=== PATIENT | male | born 1930 | race Caucasian/White ===

== ENCOUNTER 2017-02-18 19:39 | Emergency (ER) | payer OTHER, MEDICARE ==
--- NOTE | 2017-02-18 23:01 | DIAGNOSTIC IMAGING REPORT ---
PROCEDURE: XR CHEST 1 VIEW INDICATION: SHORTNESS OF BREATH TECHNIQUE: Portable AP view 08:28 p.m. COMPARISON: None. FINDINGS: Median sternotomy with valvuloplasty and dual lead pacemaker. Heart size, mediastinum and pulmonary vessels are normal. Left basilar opacity which may relate to one of the ribs. Thorax is normal. IMPRESSION: 1. Pacemaker, sternotomy and valvuloplasty 2. Left basilar opacity which may relate to a rib. Recommend two-view chest section
--- NOTE | 2017-02-19 02:23 | ED NURSING NOTES ---
Clinical Report - Nurses [facility] [address] [place] [address] 02/18/2017 19:43 Patient: SLY MUSTAFA TRIAGE Triage time 19:45 Feb 18 2017. Acuity: LEVEL 2. Chief Complaint: SHORTNESS OF BREATH and DIFFICULTY BREATHING. SEPSIS SCREEN: Sepsis Screen: negative. Negative (no infection suspected/documented). QIAN COMA SCORE: Qian Coma Scale: 15- eyes open spontaneously (4); best verbal response- oriented x 4 (5); best motor response- obeys commands (6). --19:57 Katie Rivera 19:48 02/18/17. BP: 146/71. HR: 75. RR: 24. O2 saturation: 100% on room air. Temp: 98.4 F (oral). Pain level now: 0/10. --19:57 Katie Rivera. Weight: 79.3 kg stated. Height/Length: 71 inches Per Patient. BMI: 24.4. --19:50 Katie Rivera. Medications Warfarin Sodium Oral 15 mg, daily. --19:53 Katie Rivera Aricept Oral (Tablet 5 mg), daily. --19:53 Katie Rivera Namenda Oral 10 mg, 2x a day. --19:53 Katie Rivera Lovenox Subcutaneous, 2x a day. --19:54 Katie Rivera. Allergies No Known Drug Allergy. --19:55 Katie Rivera. Medication/allergy information source: the patient. --19:57 Katie Rivera. History Arrived by private vehicle. Historian: patient. Accompanied by family. Primary physician (Herminia). This started today. ( Patient reports onset of shortness of breath tonight. He denies any history of COPD or asthma. He reports cardiac history and use of blood thinners.). PAST MEDICAL HX: Immunizations: up-to-date. SOCIAL HX: Never smoker. No alcohol use or drug use. No infectious disease exposure. ABUSE ASSESSMENT: No report of abuse. FALL RISK ASSESSMENT: Fall risk assessment completed. No fall risk identified. NUTRITIONAL RISK ASSESSMENT: The nutritional risk assessment revealed no deficiencies. FUNCTIONAL ASSESSMENT: Functional assessment: no impairments noted. LEARNING NEEDS ASSESSMENT: The learning needs assessment revealed no barriers. SKIN INTEGRITY ASSESSMENT: Skin integrity risk assessment completed. No skin integrity risk identified. --19:57 Katie Rivera. PROBLEMS: Rectal Prolapse. Dimentia . Cardiac Procedures. --19:56 Katie Rivera. ADDITIONAL SURGERIES: Cardiac valve replacement . Hernia Repair. Pacemaker. --19:56 Katie Rivera. Interventions ID band on patient. To treatment room. --19:57 Katie Rivera. PHYSICAL ASSESSMENT To room via wheelchair. Patient gowned. GENERAL / NEURO / PSYCH: Alert. Oriented X 4. Appears in no acute distress. HEENT: Mucous membranes are pink. RESPIRATORY: Mild respiratory distress. The patient can speak in full sentences. CVS: Cardiac rhythm: paced rhythm. GI / : Abdomen soft. ( Bruising over patients abdomen, he reports this is due to Subcutaneous injections). SKIN: Skin is dry. Skin is cool. --19:58 Katie Rivera. NURSING PROGRESS NOTES The initial plan of care for this patient has been created This plan of care was discussed with the patient and family. webmaster, pulse oximeter and NIBP monitor placed on patient; monitor alarms on. Patient gowned. Head of bed elevated. Reassurance given to the patient. Two patient identifiers checked. Call light placed in reach. Side rails up x 1. Bed placed in lowest position. Brakes of bed on. Patient ready for evaluation- chart flagged and ED physician notified. --19:58 Katie Rivera 19:59 02/18/2017 Site #1 started via IV in the left antecubital space with an 18g angiocath, with aseptic technique and good blood return; one attempt. Blood drawn: rainbow set. Labeled in the presence of the patient and sent to the lab. Saline lock flushed with 10 mL saline. --19:59 Katie Rivera EKG time: (19:51 Feb 18 2017). EKG was performed by a tech and shown to the ED physician. --19:59 Katie Rivera ( RT called to bedside). --19:59 Katie Rivera 20:19 02/18/17. BP: 126/69. HR: 84. RR: 24. O2 saturation: 99% on nasal cannula at 2 liters/minute. --20:19 Katie Rivera ( Pt informed of need for urine sample. Family at bedside and discussed plan of care). --21:02 Katie Rivera 21:02 02/18/17. BP: 110/67. HR: 86. RR: 24. O2 saturation: 100% on nasal cannula at 2 liters/minute. --21:03 Katie Rivera ( Patient attempted to give urine sample but was not able at this time). --21:44 Katie Rivera 21:44 02/18/17. BP: 121/70. HR: 86. RR: 22. O2 saturation: 100% on nasal cannula at 2 liters/minute. --21:49 Katie Rivera 22:34 02/18/2017 Started bag #1 500 mL IV Fluids IV NS (Saline); at 1000 mL/hr over 30 minute(s) via site #1. Allergies verified and confirmed 5 rights. IV patency established. IV site checked: no pain, redness, or swelling. IV flushed thoroughly pre- and post-medication administration. --22:34 Katie Rivera 22:56 02/18/17. BP: 120/86. HR: 80. RR: 20. O2 saturation: 100% on nasal cannula at 2 liters/minute. --22:56 Katie Rivera ( Walk test performed, patient ambulated to restroom and was short of breath, he had to stop and catch his breath. Patient returned to bed and provider notified.). --23:10 Katie Rivera 23:00 02/18/2017 IV Fluids IV NS Discontinued: bag #1 completed. Total amount infused: 500 mL. IV patency established. IV site checked: no pain, redness, or swelling. IV flushed thoroughly. --23:40 Katie Rivera ( Patient up to use urinal, patient standing and reports he feels diaphoretic and "weird". He states he is nauseated. He and his family report some belly fullness and pain over the last few weeks.). --23:40 Katie Rivera ( Provider notified). --23:41 Katie Rivera 14 fr in/out catheterization. During procedure hand hygiene observed and sterile equipment and aseptic technique used. Return of 300 mL marek-colored clear urine. He tolerated procedure well. --23:54 Katie Rivera Patient ID band checked for patient name and birthdate: patient confirmed. Instructions provided to collect clean catch urine and patient verbalized understanding. Catheterized urine collected with return of marek-colored clear urine; sample sent to lab for urinalysis. Specimen labeled in the presence of the patient. --23:54 Katie Rivera 00:10 02/19/17. BP: 104/88. HR: 84. RR: 22. O2 saturation: 98% on nasal cannula at 2 liters/minute. --00:10 Katie Rivera Patient transported to radiology by stretcher with tech. (00:Feb 19 2017). --00:20 Katie Rivera ( Patient given warm blankets and resting quietly). --00:46 Katie Rivera 01:18 02/19/17. BP: 123/66. HR: 84. RR: 20. O2 saturation: 96% on nasal cannula at 2 liters/minute. --01:18 Katie Rivera ( Provider at bedside discussing plan of care with patient). --01:33 Katie Rivera 02:14 02/19/17. BP: 110/66. HR: 84. RR: 20. O2 saturation: 98% on nasal cannula. --02:17 Katie Rivera The patient is sleeping. --02:17 Katie Rivera 03:25 02/19/17. BP: 101/60. HR: 84. RR: 20. O2 saturation: 98% on nasal cannula at 2 liters/minute. --03:25 Katie Rivera The patient is sleeping. --05:30 Katie Rivera 05:30 02/19/17. BP: 110/60. HR: 84. RR: 20. O2 saturation: 98% on nasal cannula at 2 liters/minute. --05:30 Katie Rivera 04:20 02/19/17. ( Patient assisted up to restroom, patient short of breath with ambulation. Patient returned to bed and has no complaints at this time.). --05:31 Servando Riveranah 06:45 02/19/17. BP: 105/50. HR: 80. RR: 20. O2 saturation: 96% on nasal cannula at 2 liters/minute. --06:47 Nicole, Katie ( Patient pulled his IV out while sleeping, he states he forgot why he had it it. He reports he feels a little "weird". Provider aware.). --06:47 Nicole Katie Care transferred and report received (Katie Rader EDRN). --07:05 Patrick Vazquez R.N. Care transferred and report given (Kavita RN). --07:06 Nicole, Katie 06:44 02/19/2017 Site #1 removed. Catheter intact. Bandage applied (was pulled out by pt). --07:10 Patrick Vazquez R.N. 07:05 02/19/2017 Site #2 started via IV in the left antecubital space with an 20g angiocath, with aseptic technique and good blood return. Saline lock flushed with 10 mL saline. --07:10 Patrick Vazquez R.N. 07:09 02/19/17. BP: 104/49. HR: 77. RR: 18. O2 saturation: 96% on room air. --07:10 Patrick Vazquez R.N. The patient is sleeping. ( equal rise/fall of chest). --08:36 Patrick Vazquez R.N. DISPOSITION / DISCHARGE 09:29 02/19/17. Departure time: 914. Condition at departure: improved and stable. No learning barriers present. Discharge instructions provided and reviewed with the patient and family. Patient and family verbalized understanding. Written instructions provided in Iranian. The patient was discharged by the physician. He was discharged home and accompanied by family. He left the Emergency Department in a wheelchair and via private vehicle. Family member driving. --09:29 Patrick Vazquez R.N. 09:28 02/19/17. BP: 114/70. HR: 89. RR: 20. O2 saturation: 98% on room air. Temp: 98.2 F (oral). Pain level now 0/10. --09:29 Patrick Vazquez R.N. Locked/Released at 02/19/2017 9:29 by Patrick Vazquez R.N.
--- NOTE | 2017-02-19 02:23 | ED ORDER SUMMARY ---
..... Patient: SLY MUSTAFA OrderSheet [facility] VisitID: [id number] [place] [address] 87y, M Registration Date/Time: 02/18/2017 ORDER SHEET Weight: 79.3 kg (stated) Allergies: No Known Drug Allergy GENERAL ORDERS: Chest 1V Urgent (20:13 02/18/2017 Kamar MENG) (Ack 20:16 AMcQuoid ER Tech1) (20:37 HSoule) Sap Portal Consultant (Continuous) (20:14 02/18/2017 Kamar MENG) (20:15 HSoule) UA-Culture if indicated Urgent (20:14 02/18/2017 Kamar MENG) (Ack 20:16 AMcQuoid ER Tech1) (0:10 HSoule) PT with INR Urgent (20:14 02/18/2017 Kamar MENG) (Ack 20:16 AMcQuoid ER Tech1) (22:34 HSoule) Cardiac Panel Stat (20:14 02/18/2017 Kamar MENG) (Ack 20:16 AMcQuoid ER Tech1) (22:34 HSoule) BNP Urgent (20:14 02/18/2017 Kamar MENG) (Ack 20:16 AMcQuoid ER Tech1) (22:34 HSoule) D-Dimer Urgent (20:14 02/18/2017 Kamar MENG) (Ack 20:16 AMcQuoid ER Tech1) (22:34 HSoule) Oxygen (2 L/min) (NC) (20:14 02/18/2017 Kamar MENG) (20:15 HSoule) Pulse oximeter (20:14 02/18/2017 Kamar MENG) (20:15 HSoule) EKG - ER Stat (20:02/18/2017 Kamar MENG) (20:15 HSoule) CT Abd/Pel w Cont (No) (GFR > 60) Urgent (23:35 02/18/2017 Zachary Bernstein) (Ack 23:36 AMcQuoid ER Tech1) (0:34 RFay) MEDICATION ORDERS: IV FLUIDS: IV Saline Lock (20:14 02/18/2017 Kamar MENG) (20:15 HSoule) IV NS : initial bolus 500 mL (1000 mL/hr), then none - for X1 (NOW) (22:32 02/18/2017 Zachary Bernstein) (22:34 HSoule) ORDER SHEET NOTES: [Electronically signed by Patrick Vazquez R.N. (09:02/19/2017)] [Electronically signed by Kendell Langston Dr. (09:48 02/23/2017)] [Electronically locked/signed by Patrick Vazquez R.N. (09:02/19/2017)]
--- NOTE | 2017-02-19 02:23 | ED ORDER SUMMARY ---
..... Patient: SLY MUSTAFA OrderSheet [facility] VisitID: [id number] [place] [address] 87y, M Registration Date/Time: 02/18/2017 ORDER SHEET Weight: 79.3 kg (stated) Allergies: No Known Drug Allergy GENERAL ORDERS: Chest 1V Urgent (20:13 02/18/2017 Kamar MENG) (Ack 20:16 AMcQuoid ER Tech1) (20:37 HSoule) Air Pollution Analyst (Continuous) (20:14 02/18/2017 Kamar MENG) (20:15 HSoule) UA-Culture if indicated Urgent (20:14 02/18/2017 Kamar MENG) (Ack 20:16 AMcQuoid ER Tech1) (0:10 HSoule) PT with INR Urgent (20:14 02/18/2017 Kamar MENG) (Ack 20:16 AMcQuoid ER Tech1) (22:34 HSoule) Cardiac Panel Stat (20:14 02/18/2017 Kamar MENG) (Ack 20:16 AMcQuoid ER Tech1) (22:34 HSoule) BNP Urgent (20:14 02/18/2017 Kamar MENG) (Ack 20:16 AMcQuoid ER Tech1) (22:34 HSoule) D-Dimer Urgent (20:14 02/18/2017 Kamar MENG) (Ack 20:16 AMcQuoid ER Tech1) (22:34 HSoule) Oxygen (2 L/min) (NC) (20:14 02/18/2017 Kamar MENG) (20:15 HSoule) Pulse oximeter (20:14 02/18/2017 Kamar MENG) (20:15 HSoule) EKG - ER Stat (20:02/18/2017 Kamar MENG) (20:15 HSoule) CT Abd/Pel w Cont (No) (GFR > 60) Urgent (23:35 02/18/2017 Zachary Bernstein) (Ack 23:36 AMcQuoid ER Tech1) (0:34 RFay) MEDICATION ORDERS: IV FLUIDS: IV Saline Lock (20:14 02/18/2017 Kamar MENG) (20:15 HSoule) IV NS : initial bolus 500 mL (1000 mL/hr), then none - for X1 (NOW) (22:32 02/18/2017 Zachary Bernstein) (22:34 HSoule) ORDER SHEET NOTES: [Electronically signed by Patrick Vazquez R.N. (09:02/19/2017)] [Electronically signed by Kendell Langston Dr. (09:48 02/23/2017)] [Electronically locked/signed by Patrick Vazquez R.N. (09:02/19/2017)]
--- NOTE | 2017-02-19 02:23 | ED CLINICAL REPORT ---
Clinical Report - Physicians/Mid Levels [facility] [address] [place] [address] 02/18/2017 19:43 Patient: SLY MUSTAFA Time Seen: 19:58. Arrived- By private vehicle. Historian- patient. HISTORY OF PRESENT ILLNESS Chief Complaint: DYSPNEA and FATIGUE. This started several days ago and is still present. It was gradual in onset and has been intermittent and waxing/waning but is not gone now. The dyspnea is described as moderate. No cough, sputum production, fever or chills. No chest pain or discomfort, calf pain, orthopnea or paroxysmal nocturnal dyspnea. No palpitations. He has had dyspnea on exertion. Recent medical care: The patient was seen recently by a health care provider. ( INR sub theraputic). REVIEW OF SYSTEMS No fever, sore throat, calf pain, chest pain or black stools. No bloody stools or alteration in mental status. He has had epistaxis (recently not today). He has had difficulty breathing and easy bruising. He has had mild abdominal pain (resolved). Nosebleeds. All systems otherwise negative, except as recorded above. PAST HISTORY See nurses notes. PCP: Emil Ops: Mitral Valve Replacement, Pacemaker, L ingual hernia repair Illness: Rectal prolapse, anticoagulation, dementia,. Medications: Lovenox Subcutaneous, 2x a day. Namenda Oral 10 mg, 2x a day. Aricept Oral (Tablet 5 mg), daily. Warfarin Sodium Oral 15 mg, daily. Allergies: No Known Drug Allergy. SOCIAL HISTORY Never smoker. No alcohol use or drug use. No recent travel. Residence: with good family support. 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 ADDITIONAL NOTES The nursing notes have been reviewed. PHYSICAL EXAM Vital Signs: 02/18/2017 21:02 BP: 110/67. HR: 86. RR: 24. O2 saturation: 100%. 02/18/2017 20:19 BP: 126/69. HR: 84. RR: 24. O2 saturation: 99%. 02/18/2017 19:48 BP: 146/71. HR: 75. RR: 24. O2 saturation: 100%. Temp: 98.4 F. Pain level now: 0/10. Appearance: Alert. No acute distress. Eyes: Pupils equal, round and reactive to light. Eyes normal inspection. ENT: Pharynx normal. Neck: Normal inspection. CVS: Normal heart rate and rhythm. Heart sounds normal. Respiratory: No respiratory distress. Breath sounds normal. No accessory muscle use, wheezes, rales or rhonchi. Abdomen: Soft and nontender. (Entire abdominal skin has ecchymosis at lovenox injection sites). Extremities: Extremities exhibit normal ROM. No lower extremity edema. Neuro: No alteration in mental status. LABS, X-RAYS, AND EKG Chest X-ray: (PROCEDURE: XR CHEST 1 VIEW INDICATION: SHORTNESS OF BREATH TECHNIQUE: Portable AP view 08:28 p.m. COMPARISON: None. FINDINGS: Median sternotomy with valvuloplasty and dual lead pacemaker. Heart size, mediastinum and pulmonary vessels are normal. Left basilar opacity which may relate to one of the ribs. Thorax is normal. IMPRESSION: 1. Pacemaker, sternotomy and valvuloplasty 2. Left basilar opacity which may relate to a rib. Recommend two-view chest section). Views: AP (portable). The X-rays were independently viewed by me and interpreted by the radiologist. The X-rays were discussed with the radiologist (via PACS). Abdominal CT: PROCEDURE: CT ABD/PELVIS WITH CONTRAST INDICATION: Abdominal distention. TECHNIQUE: 140 ml of Isovue 300 were injected intravenously and axial images were obtained of the entire abdomen and pelvis with sagittal and coronal reformations. Preliminary report provided by Rafa Blackburn MD ([facility]). COMPARISON: Compared to chest x-ray on 02/18/2017. FINDINGS: ABDOMEN: There is a [id number]-[id number] amount of ingested material in the stomach. Moderate stool throughout the colon. Small bowel pattern is normal. Appendix not clearly identified, but no evidence of inflammatory process. Gallbladder, liver, spleen (old calcified granuloma), pancreas, kidneys (bilateral renal cysts), are normal. 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 Superior mesenteric artery appears normal. Mild to moderate dextroscoliosis and moderate degenerative changes of the lumbar spine. There is a sclerotic density in the left L3 vertebral body There are moderate parenchymal densities at the lung bases (left lateral, right posterior medial, right supradiaphragmatic) with few dystrophic calcifications and moderate basilar scarring. PELVIS: Moderate to marked enlargement prostate (6 cm) primarily affecting the central prostate. Associated calcifications. There is marked distention of the urinary bladder with a large of 7 cm right bladder diverticulum. There are a few scattered osseous sclerotic densities in the pelvis. IMPRESSION: 1. Moderate to large amount of ingested material in the stomach. 2. Moderate stool throughout the colon. Consider obstipation. 3. 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 4. Moderate dextroscoliosis and marked degenerative change of the lumbar spine. 5. Moderate parenchymal changes at the lung bases suggests round atelectasis and/or asbestosis (neoplasm less likely). Comparison with prior outside studies may be of assistance. If these are not available, CT thorax may be of assistance. 6. Moderate to marked enlargement of the prostate (primarily affecting the central prostate). Consider hyperplasia or prostate neoplasm. 7. Marked distention of the urinary bladder with large 7 cm right posterior lateral bladder diverticulum. 8. There are scattered sclerotic densities in the lumbar spine and pelvis. While these could be a bone islands, osseous metastatic prostate disease might be considered. The study was independently viewed by me and interpreted by the radiologist. The study was discussed with the radiologist (Via phone). Laboratory Tests: UA-Culture if indicated: (CYNTHIA: 02/18/2017 00:01) ( MsgRcvd 02/19/2017 00:09) Final results Test Result Flag Units (Reference) URINE COLOR YELLOW URINE APPEARANCE CLEAR URINE GLUCOSE NEGATIVE (NEGATIVE) URINE BILIRUBIN NEGATIVE (NEGATIVE) URINE KETONE NEGATIVE (NEGATIVE) URINE SPECIFIC GRAVITY 1.020 (1.010-1.030) URINE PH 6.0 (5.0-8.0) URINE PROTEIN NEGATIVE (NEGATIVE) URINE UROBILINOGEN 0.2 EU/dL (0.2-1.0) URINE NITRITE NEGATIVE (NEGATIVE) URINE BLOOD 2+ (NEGATIVE) URINE LEUK ESTERASE NEGATIVE (NEGATIVE) URINE RBC 5-10 rbc/hpf (0-1) URINE WBC NONE SEEN wbc/hpf (0-1) URINE EPITHELIAL CELLS NONE SEEN EPI/hpf (0-5) URINE BACTERIA NONE SEEN (NONE SEEN) URINE COMMENT CULT NOT INDICATED URINE CULTURES ARE SET-UP BASED ON THE FOLLOWING CRITERIA:POSITIVE NITRITEPOSITIVE LEUKOCYTE ESTERASEGREATER THAN 10 WHITE BLOOD CELLSMODERATE (2+) OR GREATER BACTERIA CBC w Diff: (CYNTHIA: 02/18/2017 19:55) ( MsgRcvd 02/18/2017 20:27) Final results Test Result Flag Units (Reference) WHITE BLOOD COUNT 7.9 K/uL (4.5-11.5) RED BLOOD COUNT 3.39 L M/uL (4.50-5.90) HEMOGLOBIN 10.3 L gm/dL (13.5-17.5) HEMATOCRIT 31.3 L % (41.0-53.0) MEAN CELL VOLUME 92 fL (80-100) MEAN CORPUSCULAR HGB 30 pg (26-34) MEAN CORPUSCULAR HGB CONC 33 g/dL (31-37) RED CELL DISTRIBUTION WIDTH 13.9 % (11.6-14.8) PLATELET COUNT 242 K/uL (150-400) NEUTROPHIL % 79.1 H % (50-75) LYMPH % 13.3 L % (25-40) MONO % 6.0 % (3-14) EOSINOPHIL % 1.1 % (0-4) BASOPHIL % 0.5 % (0-2) PT with INR: (CYNTHIA: 02/18/2017 19:55) ( MsgRcvd 02/18/2017 20:34) Final results Test Result Flag Units (Reference) INR 2.5 H (0.8-1.2) Low Intensity Therapy: INR 1.5-2.0 PT range 18.5-23.1Mod.Intensity Therapy: INR 2.0-3.0 PT range 23.1-31.5High Intensity Therapy: INR 2.5-3.5 PT range 27.4-35.5High Intensity Therapy 2: INR 3.0-4.0 PT range 31.5-39.3 D-DIMER QUANTITATIVE < 0.27 L ug/mLFEU (0.27-0.52) The primary value of this quantitative assay relates toits negative predictive value (i.e. exclusion) of pulmonaryembolism/deep vein thrombosis/DIC.Elevated levels of d-dimer may also occur with:, age, cancer, inflammation, liver disease,post-op, infection, hematoma, coronary disease, peripheralarteriopathy, bleeding disorders and thrombolytic treatment.Results should be correlated with other clinical andradiological data.Testing Methodology: Latex Immunoassay BNP: (CYNTHIA: 02/18/2017 19:55) ( [facility] [place] 02/18/2017 20:43) Final results Test Result Flag Units (Reference) B-TYPE NATRIURETIC PEPTIDE 220 H pg/ml (5-100) CHEM 13 PANEL: (CYNTHIA: 02/18/2017 19:55) ( [facility] 02/18/2017 20:43) Final results Test Result Flag Units (Reference) GLUCOSE 132 H mg/dL (70-110) BUN 60 H mg/dL (7-18) CREATININE 1.2 mg/dL (0.6-1.3) Estimated GFR >60 mL/min Estimated GFR- >60 mL/min Note: Persistent reduction over 3 months in eGFR<60 mL/min/1.73 m2 defines CKD. Patients with eGFR values>=60 mL/min/1.73 m2 may also have CKD if evidence ofpersistent proteinuria. Additional information may be foundat [email or web address].org. SODIUM 144 mmol/L (136-145) POTASSIUM 5.1 mmol/L (3.5-5.1) CHLORIDE 108 H mmol/L (98-107) CARBON DIOXIDE 30 mmol/L (21-32) CALCIUM 8.7 mg/dL (8.5-10.1) TOTAL PROTEIN 6.3 L g/dL (6.4-8.2) ALBUMIN 3.1 L g/dL (3.3-5.0) BILIRUBIN, TOTAL 0.5 mg/dL (0.0-1.0) ALKALINE PHOSPHATASE 51 U/L (46-116) AST (SGOT) 24 U/L (15-37) ALT (SGPT) 33 U/L (12-78) MAGNESIUM 1.9 mg/dL (1.8-2.4) CPK 101 U/L (24-260) TROPONIN I <0.05 ng/mL (0.00-1.5) TROPONIN REFERENCE RANGE:<0.1 NEGATIVE0.1-1.5 INDETERMINANT>1.5 POSITIVE . PROGRESS AND PROCEDURES Course of Care: 21:37 02/18/17. Care transferred to Dr Langston due to end of shift/ R MD Adolfo The patient is a pleasant 87-year-old male with past medical history significant for dementia presenting for evaluation of shortness of breath and generalized weakness. At this time differential diagnosis includes infectious etiology versus metabolic abnormality. Laboratory studies and chest x-ray been ordered by the previous provider. No other acute abnormalities noted on patient's examination and history that has been independently performed by myself. Agreed that assessment and plan. We'll follow up on patient's laboratory studies and workup. patient's laboratory studies were significant for the findings above. Troponin is noted to be negative. Normal d-dimer. BNP is only slightly elevated at 220. Chest x-ray and EKG are noted to be unremarkable. Because the patient's past medical history, we'll place a consult to patient's chronometer repairer. Patient states that he has a chronometer repairer on an [place] follows with Dr. Garrison. We're able to speak to patient'scardiology group. The chronometer repairer who is covering for Dr. Garrison was Dr. Smith. after discussion the patient's workup here in the emergency department, patient was deemed stable for outpatient management and will require follow-up appointment in approximately one week. The patient's laboratory studies and workup here is been unremarkable. Because the patient's lack of abnormal findings, patient likely be a good outpatient candidate. However upon patient's discussion with family, they were concerned about the patient's generalized weakness and inability to ambulate. Patient had become significantly short of breath while ambulating in the emergency department. Because of this, had felt that the patient's overall hydration status was low. Patient has not been keeping up with by mouth hydration or food. Fluids have been given and the patient was road tested again. Patient did not pass road test. Patient was unsteady on his feet and became severely short of breath and tripoding after a short 30 foot ambulation in the emergency department. In addition to the difficulty with ambulation, the patient reported abdominal fullness and distention that has been ongoing for the past several weeks. Because of this abnormality, CT scan of the abdomen and pelvis with contrast has been ordered. Patient and family agreeable to the treatment plan. We are currently awaiting patient's urinalysis. in further discussion with the patient's family, was found that the patient had recent nosebleed. This was a significant amount of bleeding per family however has not had any problems since then. This approximately happened 2 or 3 weeks ago. Patient is not reporting any dark or tarry stools recently or nausea and vomiting. Reports the hemoglobin and hematocrit were normal however family does not remember the exact number that was told. Attempts to locate the patient's prior labs have been unsuccessful. Unable to compare prior hemoglobin and hematocrit to today's values. Could represent acutedecompensation blood loss. WIll monitor. Need to be cautions with fluids due to mild elevation with BNP. The patient's workup was remarkable for the findings above. patient with incidental findings on the abdominal CT scan. No other acute abnormalities noted on patient's exam. patient however continued to be short of breath and dyspneic with tripoding after short ambulation in the emergency department again. Patient is a significant fall risk. Would be concerned about patient returning home and falling. Patient is a high risk for bounce back. Had a discussion with the hospitalist in regards to the patient's condition here in the emergency department and any criteria for admission. No otheracute abnormality noted on patient's workup here in the emergency department. Do not feel patient met criteria for admission to the hospital. Patient will be monitored here in the emergency department until daytime and is safe disposition home can be made by the family. Family and patient are agreeable to the treatment and plan. During patient's course here in the emergency department she has been resting in bed and in no acute distress. Patient has been calm and cooperative. Patient appears nontoxic and do not feel that symptoms at this time are related to infectious etiology. Patient continues to be afebrile. Breakfast tray has been ordered for the patient. Patient is tolerating by mouth fluids and food well. No other acute abnormalities noted on patient's workup here in the emergency department. Patient reports feeling much better. Do not feel patient needs to be admitted to the hospital at this time and does not require further ed evaluation. Family is to fruit or nut picker the patient at approximately 9 AM this morning. Discussed with the patient and family his workup here in the emergency department included home care, follow-up, diagnosis, and return precautions. All questions have been answered. The patient expressed understanding of these instructions and was agreeable to them. Because family can be with him during the day and monitor him, he is a much lower fall risk. Discussed with family getting in contact with their PCP for possible halfway referral or home health nursing visits. Disposition: Discharged. Condition: good. CLINICAL IMPRESSION Acute dyspnea 02/19/2017 07:09 BP: 104/49. HR: 77. RR: 18. O2 saturation: 96%. 02/19/2017 06:45 BP: 105/50. HR: 80. RR: 20. O2 saturation: 96%. Blood pressure normal. Oxygen saturation normal. Acute anemia. acute incidental bladder cyst acute incidental bone lesionsconcerning for possible metastasis acute incidental lung masses. INSTRUCTIONS Warnings: GENERAL WARNINGS: Return or contact your physician immediately if your condition worsens or changes unexpectedly, if not improving as expected, or if other problems arise. SPECIFICALLY, return if you develop chest pain, neck pain, jaw pain, shoulder pain, arm pain, back pain, fever, productive cough, difficulty breathing, excessive fatigue, a fluttering sensation in the chest, fainting or leg swelling. Your Current Medications: CONTINUE TAKING THE FOLLOWING MEDICATIONS: Aricept Oral : Tablet 5 mg, daily. Lovenox Subcutaneous : 2x a day. Namenda Oral : 10 mg 2x a day. Warfarin Sodium Oral : 15 mg daily. Follow-up: Return to the emergency department as needed. Follow up with your doctor in three days. Reason for referral: recheck today's concerns. Summary of care provided to patient via paper. Follow up with doctor. Reason for referral: Your chronometer repairer this week to recheck today's concerns. Summary of care provided to patient and family via paper. Screening today revealed the patient's blood pressure to be in the normal range. The patient should follow up with a primary care provider for blood pressure management. Understanding of the discharge instructions verbalized by patient and family. (Electronically signed by Kendell Langston Dr. 02/23/2017 9:48)
--- NOTE | 2017-02-19 06:25 | DIAGNOSTIC IMAGING REPORT ---
PROCEDURE: CT ABD/PELVIS WITH CONTRAST INDICATION: Abdominal distention. TECHNIQUE: 140 ml of Isovue 300 were injected intravenously and axial images were obtained of the entire abdomen and pelvis with sagittal and coronal reformations. Preliminary report provided by Rafa Blackburn MD ([facility]). COMPARISON: Compared to chest x-ray on 02/18/2017. FINDINGS: ABDOMEN: There is a eyonfooi-[id number]-zoobs amount of ingested material in the stomach. Moderate stool throughout the colon. Small bowel pattern is normal. Appendix not clearly identified, but no evidence of inflammatory process. Gallbladder, liver, spleen (old calcified granuloma), pancreas, kidneys (bilateral renal cysts), are normal. 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 Superior mesenteric artery appears normal. Mild to moderate dextroscoliosis and moderate degenerative changes of the lumbar spine. There is a sclerotic density in the left L3 vertebral body There are moderate parenchymal densities at the lung bases (left lateral, right posterior medial, right supradiaphragmatic) with few dystrophic calcifications and moderate basilar scarring. PELVIS: Moderate to marked enlargement prostate (6 cm) primarily affecting the central prostate. Associated calcifications. There is marked distention of the urinary bladder with a large of 7 cm right bladder diverticulum. There are a few scattered osseous sclerotic densities in the pelvis. IMPRESSION: 1. Moderate to large amount of ingested material in the stomach. 2. Moderate stool throughout the colon. Consider obstipation. 3. 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 4. Moderate dextroscoliosis and marked degenerative change of the lumbar spine. 5. Moderate parenchymal changes at the lung bases suggests round atelectasis and/or asbestosis (neoplasm less likely). Comparison with prior outside studies may be of assistance. If these are not available, CT thorax may be of assistance. 6. Moderate to marked enlargement of the prostate (primarily affecting the central prostate). Consider hyperplasia or prostate neoplasm. 7. Marked distention of the urinary bladder with large 7 cm right posterior lateral bladder diverticulum. 8. There are scattered sclerotic densities in the lumbar spine and pelvis. While these could be a bone islands, osseous metastatic prostate disease might be considered. 9. Findings discussed with Dr. Langston. All CT scans at this facility use dose modulation, iterative reconstruction, and/or weight-based dosing when appropriate to reduce radiation dose to as low as reasonably achievable.
--- NOTE | 2017-02-19 06:25 | DIAGNOSTIC IMAGING REPORT ---
PROCEDURE: CT ABD/PELVIS WITH CONTRAST INDICATION: Abdominal distention. TECHNIQUE: 140 ml of Isovue 300 were injected intravenously and axial images were obtained of the entire abdomen and pelvis with sagittal and coronal reformations. Preliminary report provided by Rafa Blackburn MD ([facility] [[email or web address] COMPARISON: Compared to chest x-ray on 02/18/2017. FINDINGS: ABDOMEN: There is a [id number] amount of ingested material in the stomach. Moderate stool throughout the colon. Small bowel pattern is normal. Appendix not clearly identified, but no evidence of inflammatory process. Gallbladder, liver, spleen (old calcified granuloma), pancreas, kidneys (bilateral renal cysts), are normal. 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 Superior mesenteric artery appears normal. Mild to moderate dextroscoliosis and moderate degenerative changes of the lumbar spine. There is a sclerotic density in the left L3 vertebral body There are moderate parenchymal densities at the lung bases (left lateral, right posterior medial, right supradiaphragmatic) with few dystrophic calcifications and moderate basilar scarring. PELVIS: Moderate to marked enlargement prostate (6 cm) primarily affecting the central prostate. Associated calcifications. There is marked distention of the urinary bladder with a large of 7 cm right bladder diverticulum. There are a few scattered osseous sclerotic densities in the pelvis. IMPRESSION: 1. Moderate to large amount of ingested material in the stomach. 2. Moderate stool throughout the colon. Consider obstipation. 3. 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 4. Moderate dextroscoliosis and marked degenerative change of the lumbar spine. 5. Moderate parenchymal changes at the lung bases suggests round atelectasis and/or asbestosis (neoplasm less likely). Comparison with prior outside studies may be of assistance. If these are not available, CT thorax may be of assistance. 6. Moderate to marked enlargement of the prostate (primarily affecting the central prostate). Consider hyperplasia or prostate neoplasm. 7. Marked distention of the urinary bladder with large 7 cm right posterior lateral bladder diverticulum. 8. There are scattered sclerotic densities in the lumbar spine and pelvis. While these could be a bone islands, osseous metastatic prostate disease might be considered. 9. Findings discussed with Dr. Langston. All CT scans at this facility use dose modulation, iterative reconstruction, and/or weight-based dosing when appropriate to reduce radiation dose to as low as reasonably achievable.
--- NOTE | 2017-02-23 09:49 | ED DISCHARGE INSTRUCTIONS ---
Patient: SLY MUSTAFA General Instructions [facility] VisitID: [id number] [place] [address] 87y, M Registration Date/Time: 02/18/2017 Acute dyspnea 02/19/2017 07:09 BP: 104/49. HR: 77. RR: 18. O2 saturation: 96%. 02/19/2017 06:45 BP: 105/50. HR: 80. RR: 20. O2 saturation: 96%. Blood pressure normal. Oxygen saturation normal. Acute anemia. INSTRUCTIONS Warnings: GENERAL WARNINGS: Return or contact your physician immediately if your condition worsens or changes unexpectedly, if not improving as expected, or if other problems arise. SPECIFICALLY, return if you develop chest pain, neck pain, jaw pain, shoulder pain, arm pain, back pain, fever, productive cough, difficulty breathing, excessive fatigue, a fluttering sensation in the chest, fainting or leg swelling. Your Current Medications: CONTINUE TAKING THE FOLLOWING MEDICATIONS: Aricept Oral : Tablet 5 mg, daily. Lovenox Subcutaneous : 2x a day. Namenda Oral : 10 mg 2x a day. Warfarin Sodium Oral : 15 mg daily. Follow-up: Return to the emergency department as needed. Follow up with your doctor in three days. Reason for referral: recheck today's concerns. Summary of care provided to patient via paper. Follow up with doctor. Reason for referral: Your child adolescent psychiatrist this week to recheck today's concerns. Summary of care provided to patient and family via paper. Screening today revealed the patient's blood pressure to be in the normal range. The patient should follow up with a primary care provider for blood pressure management. Understanding of the discharge instructions verbalized by patient and family. ADDITIONAL INFORMATION Dyspnea (Shortness Of Breath) Shortness of Breath (also known as "Dyspnea") is the sense that you can't catch your breath or can't get enough air. Dyspnea can be caused by many different conditions such as: Acute asthma attack Worsening of emphysema (also called "COPD") -- a lung diseasethat is caused by smoking A mucus plug blocks a large air passage in the lung -- this can occur with emphysema or chronic bronchitis Congestive Heart Failure ("CHF") -- when a weak heart muscle allows excess fluid to collect inthe lungs Panic attacks, anxiety -- fear can cause rapid breathing ("hyperventilation") Pneumonia -- infection in the lung tissue Exposure to toxic fumes or smoke Pulmonary embolus (blood clot to the lung) Based on your visit today, the exact cause of your shortness of breath is not certain. Your tests do not show any of the serious causes of dyspnea. Sometimes, further testing is needed to find out if a serious problem exists. Therefore, it is important for you to watch for any new symptoms or worsening of your condition and follow up with your doctor as directed. Home Care: When your symptoms are better, resume your usual activities. If you smoke, you need to stop. Join a stop-smoking program or ask your doctor for help. Follow Up with your doctor or as advised by our staff. Get Prompt Medical Attention if any of the following occur: Increasing shortness of breath or wheezing Redness, pain or swelling in one leg Swelling in both legs or ankles Unexpected weight gain Chest, arm, shoulder, neck or upper back pain Dizziness, weakness or fainting Palpitations (the sense that your heart is fluttering, beating fast or hard) Fever of 100.4F (38C) or higher, or as directed by your healthcare provider Cough with dark colored or bloody sputum (mucus) Anemia [Type Not Specified, Adult] Red blood cells carry oxygen to the tissues of the body. Anemia is a condition where the size or number of red blood cells in the body is reduced. Iron is needed to make red blood cells. The most common cause of anemia is iron deficiency. This may be due to: i) Blood loss (heavy menstrual periods or bleeding from the stomach or intestines); or, ii) Not eating enough iron-containing foods. Other causes of anemia include certain vitamin deficiencies, chronic kidney disease or certain other chronic illnesses. Anemia causes a feeling of being tired and run down. When anemia becomes severe, the skin becomes pale and there is shortness of breath with exertion. Headaches, dizziness, leg cramps with exertion, drowsiness and fatigue are other common symptoms. Home Care: If you are having symptoms of anemia listed above: -- Do not overexert yourself. -- Talk to your doctor before flying on an airplane or traveling to high altitudes. Follow Up with your doctor as advised by our staff. Additional blood testing may be required to determine the exact cause of your anemia. If testing was done on this visit, it may take several days to get all of the results. You may call this facility or follow up with your own doctor to get the results. Get Prompt Medical Attention if any of the following occur: -- Shortness of breath or chest pain -- Worsening of dizziness, fainting -- Vomiting blood or passing red or black-colored stool You have been given the following additional information: Dyspnea Anemia, Type Not Specified (Adult) (Electronically signed by Kendell Langston Dr. 02/23/2017 9:48)
--- NOTE | 2017-02-23 09:49 | ED MAR SUMMARY ---
..... Medication Administration Record [facility] [address] [place] [address] Patient: SLY MUSTAFA Visit ID: [id number] 87y, M Weight: 79.3 kg Height/Length: 71 in BMI: 24.4 ALLERGIES: No Known Drug Allergy Start 22:34 02/18/2017 Katie Rivera,, Stop 23:00 02/18/2017 Katie Rivera, Medication Administered: IV NS (SALINE), Dose: IV Fluids over 30 minute(s), Rate: 1000 mL/hr, Dispensed: 500 mL bag, Site: #1 left AC. Medication Ordered: IV NS : initial bolus 500 mL (1000 mL/hr), then none - for X1 (NOW).
--- NOTE | 2017-02-23 09:49 | ED MED RECONCILIATION SUMMARY ---
Patient: SLY MUSTAFA Medication Reconciliation Report [facility] VisitID: [id number] [address] [place] [address] 87y, M Registration Date/Time: 02/18/2017 Weight: 79.3 kg Height/Length: 71 in. BMI: 24.4 ALLERGIES: No Known Drug Allergy The patient's Home Medications are listed below: CONTINUE TAKING THE FOLLOWING MEDICATIONS: Aricept Oral (5 mg), daily Lovenox Subcutaneous, 2x a day Namenda Oral 10 mg, 2x a day Warfarin Sodium Oral 15 mg, daily The source(s) of the original Home Medication information: patient The following Medications were given to the patient in the Emergency Department: IV NS IV Fluids bolus 0, then 1000 mL/hr, administered: 02/18/2017 10:34:00 PM The following Medications were prescribed to the patient: None.
--- NOTE | 2017-02-23 09:49 | ED MED RECONCILIATION SUMMARY ---
Patient: SLY MUSTAFA Medication Reconciliation Report [facility] VisitID: [id number] [address] [place] [address] 87y, M Registration Date/Time: 02/18/2017 Weight: 79.3 kg Height/Length: 71 in. BMI: 24.4 ALLERGIES: No Known Drug Allergy The patient's Home Medications are listed below: CONTINUE TAKING THE FOLLOWING MEDICATIONS: Aricept Oral (5 mg), daily Lovenox Subcutaneous, 2x a day Namenda Oral 10 mg, 2x a day Warfarin Sodium Oral 15 mg, daily The source(s) of the original Home Medication information: patient The following Medications were given to the patient in the Emergency Department: IV NS IV Fluids bolus 0, then 1000 mL/hr, administered: 02/18/2017 10:34:00 PM The following Medications were prescribed to the patient: None.
--- NOTE | 2017-02-23 09:49 | ED MAR SUMMARY ---
..... Medication Administration Record [facility] [address] [place] [address] Patient: SLY UMSTAFA Visit ID: [id number] 87y, M Weight: 79.3 kg Height/Length: 71 in BMI: 24.4 ALLERGIES: No Known Drug Allergy Start 22:34 02/18/2017 Katie Rivera,, Stop 23:00 02/18/2017 Katie Rivera, Medication Administered: IV NS (SALINE), Dose: IV Fluids over 30 minute(s), Rate: 1000 mL/hr, Dispensed: 500 mL bag, Site: #1 left AC. Medication Ordered: IV NS : initial bolus 500 mL (1000 mL/hr), then none - for X1 (NOW).
== END 2017-02-19 09:15 | disposition home or self-care (01) ==
LOC: ED SRH 19:39
DX: R06.00 Dyspnea, unspecified (principal); D64.9 Anemia, unspecified; R93.5 Abnormal findings on diagnostic imaging of other abdominal regions, including retroperitoneum; R26.81 Unsteadiness on feet; Z79.01 Long term (current) use of anticoagulants; Z95.0 Presence of cardiac pacemaker; Z95.2 Presence of prosthetic heart valve
CPT/HCPCS: 90004; 90100; 90616; 91320; 91556; 92610; 92720; 94060; 95059

== ENCOUNTER 2017-02-20 22:14 | Inpatient (IN) | payer OTHER, MEDICARE ==
[~2017-02-20] VITALS: Ht 180.3 cm; Wt 80.3 kg
[2017-02-21] VITALS (20 sets, daily range): BP systolic 84–135; BP diastolic 44–66
--- NOTE | 2017-02-21 01:57 | ED CLINICAL REPORT ---
Clinical Report - Physicians/Mid Levels [facility] [address] [place] [address] 02/20/2017 22:14 Patient: SLY MUSTAFA Time Seen: 23:54 Apr 2016. Arrived- By private vehicle. Historian- patient. HISTORY OF PRESENT ILLNESS Chief Complaint: ABNORMAL LAB. ( No documentatiopn sent with patient as to what lab is critical. Pt does not know either. No symptomatic complaints.). At its maximum, severity described as moderate. When seen in the E.D., severity described as moderate. Modifying factors. Not worsened by anything. Not relieved by anything. This started today and is still present. No current or associated symptoms. (Recently started on lovenox and coumadin but is not sure why.). Similar symptoms previously: None. Recent medical care: The patient was seen recently at another facility in the emergency department and office (seen here 2 days ago.). Seen for similar symptoms. Evaluation/treatment: x-rays, CT, labs and EKG. REVIEW OF SYSTEMS No chills, sweats, decreased vision, nasal congestion or epistaxis. No sore throat, calf pain, cough, pedal edema or palpitations. No abdominal pain, bloody stools, constipation, diarrhea or nausea. No vomiting, urinary frequency or urinary hesitancy, hematuria or neck pain. No skin lesions or rash, alteration in mental status, dizziness or fainting episodes. No diabetic symptoms, easy bruising or difficulty with urination. The patient has had fatigue, difficulty breathing, black stools. They have occurred several times and have been moderate and weakness. No difficulty walking. PAST HISTORY Anemia. Dyspnea. Rectal Prolapse. Dimentia . Cardiac Procedures. - ADDITIONAL SURGERIES: Cardiac valve replacement . Hernia Repair. Pacemaker. Medications: Aricept Oral (Tablet 5 mg), daily. Lovenox Subcutaneous, 2x a day. Namenda Oral 10 mg, 2x a day. Warfarin Sodium Oral 15 mg, daily. Allergies: No Known Drug Allergy. SOCIAL HISTORY Never smoker. No alcohol use or drug use. ADDITIONAL NOTES The nursing notes have been reviewed. PHYSICAL EXAM Vital Signs: 02/20/2017 23:47 BP: 114/90. HR: 74. RR: 18. O2 saturation: 97%. Temp: 98.6 F. Appearance: Alert. No acute distress. Eyes: Pupils equal, round and reactive to light. Pale conjunctivae. ENT: Pharynx normal. Neck: Normal inspection. CVS: Normal heart rate and rhythm. Heart sounds normal. Pulses normal. (sternal scar that is old.). Respiratory: No respiratory distress. Breath sounds normal. Chest nontender. Abdomen: No visible injury. Soft and nontender. Bowel sounds normal. Back: Normal inspection. No CVA tenderness. Skin: Skin warm. No rash. Pallor. Extremities: Extremities exhibit normal ROM. No lower extremity edema. Neuro: Oriented X 3. No motor deficit. No sensory deficit. Reflexes normal. LABS, X-RAYS, AND EKG Laboratory Tests: Hgb/Hct: (CYNTHIA: 02/23/2017 13:40) ( [facility] 02/23/2017 13:52) Final results Test Result Flag Units (Reference) HEMOGLOBIN 8.6 L gm/dL (13.5-17.5) HEMATOCRIT 25.8 L % (41.0-53.0) CBC w Diff: (CYNTHIA: 02/23/2017 04:10) ( [facility] 02/23/2017 04:44) Final results Test Result Flag Units (Reference) WHITE BLOOD COUNT 5.6 # K/uL (4.5-11.5) K/uL RED BLOOD COUNT 2.58 L M/uL (4.50-5.90) HEMOGLOBIN 7.8 L gm/dL (13.5-17.5) HEMATOCRIT 23.3 L % (41.0-53.0) MEAN CELL VOLUME 90 fL (80-100) MEAN CORPUSCULAR HGB 30 pg (26-34) MEAN CORPUSCULAR HGB CONC 34 g/dL (31-37) RED CELL DISTRIBUTION WIDTH 15.6 H % (11.6-14.8) PLATELET COUNT 98 L K/uL (150-400) NEUTROPHIL % 73.9 % (50-75) LYMPH % 10.7 L % (25-40) MONO % 8.5 % (3-14) EOSINOPHIL % 6.6 H % (0-4) BASOPHIL % 0.3 % (0-2) PTT: (CYNTHIA: 02/23/2017 04:10) ( [facility] 02/23/2017 05:57) Final results Test Result Flag Units (Reference) APTT 65 H SECONDS (24-34) BMP: (CYNTHIA: 02/23/2017 04:10) ( [facility] 02/23/2017 05:09) Final results Test Result Flag Units (Reference) GLUCOSE 91 mg/dL (70-110) BUN 18 mg/dL (7-18) CREATININE 0.7 mg/dL (0.6-1.3) Estimated GFR >60 mL/min Estimated GFR- >60 mL/min Note: Persistent reduction over 3 months in eGFR<60 mL/min/1.73 m2 defines CKD. Patients with eGFR values>=60 mL/min/1.73 m2 may also have CKD if evidence ofpersistent proteinuria. Additional information may be foundat www.kidney.org. SODIUM 142 mmol/L (136-145) POTASSIUM 3.7 mmol/L (3.5-5.1) CHLORIDE 109 H mmol/L (98-107) CARBON DIOXIDE 26 mmol/L (21-32) CALCIUM 7.0 L mg/dL (8.5-10.1) Hgb/Hct: (CYNTHIA: 02/22/2017 17:30) ( [facility] 02/22/2017 17:53) Final results Test Result Flag Units (Reference) HEMOGLOBIN 7.6 L gm/dL (13.5-17.5) HEMATOCRIT 23.6 L % (41.0-53.0) CBC w Diff: (CYNTHIA: 02/22/2017 05:20) ( [facility] 02/22/2017 06:08) Final results Test Result Flag Units (Reference) WHITE BLOOD COUNT 11.3 # K/uL (4.5-11.5) RED BLOOD COUNT 2.64 L M/uL (4.50-5.90) HEMOGLOBIN 8.1 L gm/dL (13.5-17.5) HEMATOCRIT 24.0 L % (41.0-53.0) MEAN CELL VOLUME 91 fL (80-100) MEAN CORPUSCULAR HGB 31 pg (26-34) MEAN CORPUSCULAR HGB CONC 34 g/dL (31-37) RED CELL DISTRIBUTION WIDTH 15.3 H % (11.6-14.8) PLATELET COUNT 124 L K/uL (150-400) NEUTROPHIL % 88.1 H % (50-75) LYMPH % 4.8 L % (25-40) MONO % 4.1 % (3-14) EOSINOPHIL % 2.5 % (0-4) BASOPHIL % 0.5 % (0-2) PTT: (CYNTHIA: 02/22/2017 22:52) ( [facility] 02/22/2017 23:07) Final results Test Result Flag Units (Reference) APTT 78 H SECONDS (24-34) PTT: (CYNTHIA: 02/22/2017 15:30) ( [facility] 02/22[facility] 15:55) Final results Test Result Flag Units (Reference) APTT 52 H SECONDS (24-34) PTT: (CYNTHIA: 02/22/2017 05:20) ( [facility] 02/22/2017 07:21) Final results Test Result Flag Units (Reference) APTT 35 H SECONDS (24-34) PT with INR: (CYNTHIA: 02/22/2017 05:20) ( [facility] 02/22/2017 06:10) Final results Test Result Flag Units (Reference) INR 1.6 H (0.8-1.2) Low Intensity Therapy: INR 1.5-2.0 PT range 18.5-23.1Mod.Intensity Therapy: INR 2.0-3.0 PT range 23.1-31.5High Intensity Therapy: INR 2.5-3.5 PT range 27.4-35.5High Intensity Therapy 2: INR 3.0-4.0 PT range 31.5-39.3 [id number]: (CYNTHIA: 02/22/2017 00:30) ( [facility] 02/22/2017 01:19) Final results Test Result Flag Units (Reference) TOTAL PSA SCREEN-MEDICARE 3.07 ng/mL (0-4.00) New methodology effective 08/20/03This method has an average 9% increase in PSA ascompared to our previous method. CMP: (CYNTHIA: 02/22/2017 05:20) ( [facility] 02/22/2017 06:16) Final results Test Result Flag Units (Reference) GLUCOSE 95 mg/dL (70-110) BUN 26 # H mg/dL (7-18) CREATININE 0.8 mg/dL (0.6-1.3) Estimated GFR >60 mL/min Estimated GFR- >60 mL/min Note: Persistent reduction over 3 months in eGFR<60 mL/min/1.73 m2 defines CKD. Patients with eGFR values>=60 mL/min/1.73 m2 may also have CKD if evidence ofpersistent proteinuria. Additional information may be foundat www.kidney.org. SODIUM 143 mmol/L (136-145) POTASSIUM 4.1 mmol/L (3.5-5.1) CHLORIDE 110 H mmol/L (98-107) CARBON DIOXIDE 27 mmol/L (21-32) CALCIUM 7.5 L mg/dL (8.5-10.1) TOTAL PROTEIN 4.7 L g/dL (6.4-8.2) ALBUMIN 2.4 L g/dL (3.3-5.0) BILIRUBIN, TOTAL 0.9 mg/dL (0.0-1.0) ALKALINE PHOSPHATASE 35 L U/L (46-116) AST (SGOT) 36 U/L (15-37) ALT (SGPT) 23 U/L (12-78) MAGNESIUM 2.0 mg/dL (1.8-2.4) UA-Culture if indicated: (CYNTHIA: 02/21/2017 03:48) ( [facility] 02/21/2017 05:11) Final results Test Result Flag Units (Reference) URINE COLOR YELLOW URINE APPEARANCE CLEAR URINE GLUCOSE NEGATIVE (NEGATIVE) URINE BILIRUBIN NEGATIVE (NEGATIVE) URINE KETONE NEGATIVE (NEGATIVE) URINE SPECIFIC GRAVITY 1.010 (1.010-1.030) URINE PH 6.0 (5.0-8.0) URINE PROTEIN NEGATIVE (NEGATIVE) URINE UROBILINOGEN 0.2 EU/dL (0.2-1.0) URINE NITRITE NEGATIVE (NEGATIVE) URINE BLOOD NEGATIVE (NEGATIVE) URINE LEUK ESTERASE NEGATIVE (NEGATIVE) URINE RBC 3-5 rbc/hpf (0-1) URINE WBC 0-1 wbc/hpf (0-1) URINE EPITHELIAL CELLS NONE SEEN EPI/hpf (0-5) URINE BACTERIA NONE SEEN (NONE SEEN) URINE COMMENT CULT NOT INDICATED URINE CULTURES ARE SET-UP BASED ON THE FOLLOWING CRITERIA:POSITIVE NITRITEPOSITIVE LEUKOCYTE ESTERASEGREATER THAN 10 WHITE BLOOD CELLSMODERATE (2+) OR GREATER BACTERIA Hgb/Hct: (CYNTHIA: 02/21/2017 17:57) ( [facility] 02/21/2017 18:04) Final results Test Result Flag Units (Reference) HEMOGLOBIN 8.3 L gm/dL (13.5-17.5) HEMATOCRIT 24.9 L % (41.0-53.0) Hgb/Hct: (CYNTHIA: 02/21/2017 12:15) ( [facility] 02/21/2017 12:34) Final results Test Result Flag Units (Reference) HEMOGLOBIN 7.6 L gm/dL (13.5-17.5) HEMATOCRIT 22.5 L % (41.0-53.0) CBC w Diff: (CYNTHIA: 02/21/2017 00:30) ( [facility] 02/21/2017 02:47) Final results Test Result Flag Units (Reference) WHITE BLOOD COUNT 5.1 K/uL (4.5-11.5) RED BLOOD COUNT 2.08 L M/uL (4.50-5.90) HEMOGLOBIN 6.5 *L gm/dL (13.5-17.5) CRITICAL RESULTS CALLEDCalled to [facility] 02/21/17 0109Wer 2 patient identifiers used? YWas the result read back? Y HEMATOCRIT 19.1 *L % (41.0-53.0) CRITICAL RESULTS CALLEDCalled to [facility] 02/21/17 0109Wer 2 patient identifiers used? YWas the result read back? Y MEAN CELL VOLUME 92 fL (80-100) MEAN CORPUSCULAR HGB 31 pg (26-34) MEAN CORPUSCULAR HGB CONC 34 g/dL (31-37) RED CELL DISTRIBUTION WIDTH 13.8 % (11.6-14.8) PLATELET COUNT 173 K/uL (150-400) NEUTROPHIL % 74.3 % (50-75) LYMPH % 14.5 L % (25-40) MONO % 8.2 % (3-14) EOSINOPHIL % 2.6 % (0-4) BASOPHIL % 0.4 % (0-2) RBC MORPHOLOGY 2+ HYPOCHROMIA~~1+ MICROCYTOSIS PT with INR: (CYNTHIA: 02/21/2017 00:30) ( [facility] 02/21/2017 01:09) Final results Test Result Flag Units (Reference) INR 6.6 *H (0.8-1.2) CRITICAL RESULTS CALLEDCalled to [facility] 02/21/17 0108Were 2 patient identifiers used? YWas the result read back? YLow Intensity Therapy: INR 1.5-2.0 PT range 18.5-23.1Mod.Intensity Therapy: INR 2.0-3.0 PT range 23.1-31.5High Intensity Therapy: INR 2.5-3.5 PT range 27.4-35.5High Intensity Therapy 2: INR 3.0-4.0 PT range 31.5-39.3 CHEM 13 PANEL: (CYNTHIA: 02/21/2017 00:30) ( [facility] 02/21/2017 01:04) Final results Test Result Flag Units (Reference) GLUCOSE 99 mg/dL (70-110) BUN 50 H mg/dL (7-18) CREATININE 0.9 mg/dL (0.6-1.3) Estimated GFR >60 mL/min Estimated GFR- >60 mL/min Note: Persistent reduction over 3 months in eGFR<60 mL/min/1.73 m2 defines CKD. Patients with eGFR values>=60 mL/min/1.73 m2 may also have CKD if evidence ofpersistent proteinuria. Additional information may be foundat www.kidney.org. SODIUM 147 H mmol/L (136-145) POTASSIUM 4.2 mmol/L (3.5-5.1) CHLORIDE 111 H mmol/L (98-107) CARBON DIOXIDE 29 mmol/L (21-32) CALCIUM 8.4 L mg/dL (8.5-10.1) TOTAL PROTEIN 5.6 L g/dL (6.4-8.2) ALBUMIN 3.0 L g/dL (3.3-5.0) BILIRUBIN, TOTAL 0.3 mg/dL (0.0-1.0) ALKALINE PHOSPHATASE 39 L U/L (46-116) AST (SGOT) 26 U/L (15-37) ALT (SGPT) 33 U/L (12-78) MAGNESIUM 2.0 mg/dL (1.8-2.4) CPK 74 U/L (24-260) TROPONIN I <0.05 ng/mL (0.00-1.5) TROPONIN REFERENCE RANGE:<0.1 NEGATIVE0.1-1.5 INDETERMINANT>1.5 POSITIVE MRSA Screen: (CYNTHIA: 02/21/2017 04:45) ( [facility] 08[facility]45) Final results Test Result Flag Units (Reference) MRSA SCREEN DATE: 02/23/17 MRSA ISOLATED?: NO MRSA ISOLATED MRSA SCREEN ONLY Type & Cross: (CYNTHIA: 02/21/2017 00:30) ( [facility] 02/21/2017 16:14) Final results Test Result Flag Units (Reference) LEUKOREDUCED PACKED CELLS [id number] BP PC TRANSFUSED 02/21/17 1314 [id number] BP PC TRANSFUSED 02/21/17 0817 [id number] BP PC TRANSFUSED 02/21/17 0442 PATIENT BLOOD TYPE B Positive Above is a corrected result. Previously reported on ( MsgRcvd 02/21/2017 02:34) as: PATIENT BLOOD TYPE B Positive ANTIBODY SCREEN NEGATIVE Above is a corrected result. Previously reported on ( MsgRcvd 02/21/2017 02:34) as: ANTIBODY SCREEN NEGATIVE . PROGRESS AND PROCEDURES Course of Care: Heplock Vitamin K 10 mg IM 3 Units PRBC's ordered. Critical care performed (95 minutes). Time is exclusive of separately billable procedures. Time includes: direct patient care, patient reassessment, coordination of patient care, interpretation of data (laboratory data and pulse oximetry), review of patient's medical records and documentation of patient care. Procedures included in critical care time: peripheral IV placement and phlebotomy. Discussed case with on-call health care provider, (Abdi). Reviewed test results. Agreed upon treatment plan and decision to admit. Health care provider will see patient in hospital. Patient/family counseled. Old medical records ordered. Disposition orders written. Disposition: Admitted to Acute Care. CLINICAL IMPRESSION GI bleed Critical anemia Weakness Over-anticoagulation. (Electronically signed by Harpreet Polk MD 02/23/2017 14:38)
--- NOTE | 2017-02-21 01:57 | ED ORDER SUMMARY ---
..... Patient: SLY MUSTAFA OrderSheet Merged With [facility] VisitID: [id number] [address] [place] [address] 87y, M Registration Date/Time: 02/20/2017 ORDER SHEET Weight: 79.3 kg (stated) Allergies: No Known Drug Allergy GENERAL ORDERS: Cardiac Panel Stat (00:04 02/21/2017 David MENG) (Ack 0:08 SRedmond) (2:00 RCollier R.N.) UA-Culture if indicated Urgent (00:04 02/21/2017 David MENG) (Ack 0:08 SRedmond) PT with INR Urgent (00:04 02/21/2017 David MENG) (Ack 0:08 SRedmond) (2:00 RCollier R.N.) Type & Cross (GI Bleed) (transfusion) Urgent (01:47 02/21/2017 David MENG) (Ack 1:52 SRedmond) (2:00 RCollier R.N.) Transfuse PRBCs (01:48 02/21/2017 David MENG) (Ack 1:52 SRedmond) MEDICATION ORDERS: Vit K IM 10 mg (NOW) (01:47 02/21/2017 David MENG) (Ack 1:49 RCollier R.N.) (2:00 RCollier R.N.) IV FLUIDS: IV Saline Lock (:48 02/21/2017 David MENG) (Ack 1:49 RCollier R.N.) ORDER SHEET NOTES: [Electronically signed by Emy Nevarez R.N. (04:40 02/21/2017)] [Electronically signed by Harpreet Polk MD (14:38 02/23/2017)] [Electronically locked/signed by Emy Nevarez R.N. (04:40 02/21/2017)]
--- NOTE | 2017-02-21 01:57 | ED ORDER SUMMARY ---
..... Patient: SLY MUSTAFA OrderSheet Formerly [facility] VisitID: [id number] [address] [place] [address] 87y, M Registration Date/Time: 02/20/2017 ORDER SHEET Weight: 79.3 kg (stated) Allergies: No Known Drug Allergy GENERAL ORDERS: Cardiac Panel Stat (00:04 02/21/2017 David MENG) (Ack 0:08 SRedmond) (2:00 RCollier R.N.) UA-Culture if indicated Urgent (00:04 02/21/2017 David MENG) (Ack 0:08 SRedmond) PT with INR Urgent (00:04 02/21/2017 David MENG) (Ack 0:08 SRedmond) (2:00 RCollier R.N.) Type & Cross (GI Bleed) (transfusion) Urgent (01:47 02/21/2017 David MENG) (Ack 1:52 SRedmond) (2:00 RCollier R.N.) Transfuse PRBCs (01:48 02/21/2017 David MENG) (Ack 1:52 SRedmond) MEDICATION ORDERS: Vit K IM 10 mg (NOW) (01:47 02/21/2017 David MENG) (Ack 1:49 RCollier R.N.) (2:00 RCollier R.N.) IV FLUIDS: IV Saline Lock (:48 02/21/2017 David MENG) (Ack 1:49 RCollier R.N.) ORDER SHEET NOTES: [Electronically signed by Emy Nevarez R.N. (04:40 02/21/2017)] [Electronically signed by Harpreet Polk MD (14:38 02/23/2017)] [Electronically locked/signed by Emy Nevarez R.N. (04:40 02/21/2017)]
--- NOTE | 2017-02-21 01:57 | ED CLINICAL REPORT ---
Clinical Report - Physicians/Mid Levels [facility] [address] [place] [address] 02/20/2017 22:14 Patient: SLY MUSTAFA Time Seen: 23:54 Apr 2016. Arrived- By private vehicle. Historian- patient. HISTORY OF PRESENT ILLNESS Chief Complaint: ABNORMAL LAB. ( No documentatiopn sent with patient as to what lab is critical. Pt does not know either. No symptomatic complaints.). At its maximum, severity described as moderate. When seen in the E.D., severity described as moderate. Modifying factors. Not worsened by anything. Not relieved by anything. This started today and is still present. No current or associated symptoms. (Recently started on lovenox and coumadin but is not sure why.). Similar symptoms previously: None. Recent medical care: The patient was seen recently at another facility in the emergency department and office (seen here 2 days ago.). Seen for similar symptoms. Evaluation/treatment: x-rays, CT, labs and EKG. REVIEW OF SYSTEMS No chills, sweats, decreased vision, nasal congestion or epistaxis. No sore throat, calf pain, cough, pedal edema or palpitations. No abdominal pain, bloody stools, constipation, diarrhea or nausea. No vomiting, urinary frequency or urinary hesitancy, hematuria or neck pain. No skin lesions or rash, alteration in mental status, dizziness or fainting episodes. No diabetic symptoms, easy bruising or difficulty with urination. The patient has had fatigue, difficulty breathing, black stools. They have occurred several times and have been moderate and weakness. No difficulty walking. PAST HISTORY Anemia. Dyspnea. Rectal Prolapse. Dimentia . Cardiac Procedures. - ADDITIONAL SURGERIES: Cardiac valve replacement . Hernia Repair. Pacemaker. Medications: Aricept Oral (Tablet 5 mg), daily. Lovenox Subcutaneous, 2x a day. Namenda Oral 10 mg, 2x a day. Warfarin Sodium Oral 15 mg, daily. Allergies: No Known Drug Allergy. SOCIAL HISTORY Never smoker. No alcohol use or drug use. ADDITIONAL NOTES The nursing notes have been reviewed. PHYSICAL EXAM Vital Signs: 02/20/2017 23:47 BP: 114/90. HR: 74. RR: 18. O2 saturation: 97%. Temp: 98.6 F. Appearance: Alert. No acute distress. Eyes: Pupils equal, round and reactive to light. Pale conjunctivae. ENT: Pharynx normal. Neck: Normal inspection. CVS: Normal heart rate and rhythm. Heart sounds normal. Pulses normal. (sternal scar that is old.). Respiratory: No respiratory distress. Breath sounds normal. Chest nontender. Abdomen: No visible injury. Soft and nontender. Bowel sounds normal. Back: Normal inspection. No CVA tenderness. Skin: Skin warm. No rash. Pallor. Extremities: Extremities exhibit normal ROM. No lower extremity edema. Neuro: Oriented X 3. No motor deficit. No sensory deficit. Reflexes normal. LABS, X-RAYS, AND EKG Laboratory Tests: Hgb/Hct: (CYNTHIA: 02/23/2017 13:40) ( [facility] 02/23/2017 13:52) Final results Test Result Flag Units (Reference) HEMOGLOBIN 8.6 L gm/dL (13.5-17.5) HEMATOCRIT 25.8 L % (41.0-53.0) CBC w Diff: (CYNTHIA: 02/23/2017 04:10) ( [facility] 02/23/2017 04:44) Final results Test Result Flag Units (Reference) WHITE BLOOD COUNT 5.6 # K/uL (4.5-11.5) K/uL RED BLOOD COUNT 2.58 L M/uL (4.50-5.90) HEMOGLOBIN 7.8 L gm/dL (13.5-17.5) HEMATOCRIT 23.3 L % (41.0-53.0) MEAN CELL VOLUME 90 fL (80-100) MEAN CORPUSCULAR HGB 30 pg (26-34) MEAN CORPUSCULAR HGB CONC 34 g/dL (31-37) RED CELL DISTRIBUTION WIDTH 15.6 H % (11.6-14.8) PLATELET COUNT 98 L K/uL (150-400) NEUTROPHIL % 73.9 % (50-75) LYMPH % 10.7 L % (25-40) MONO % 8.5 % (3-14) EOSINOPHIL % 6.6 H % (0-4) BASOPHIL % 0.3 % (0-2) PTT: (CYNTHIA: 02/23/2017 04:10) ( [facility] 02/23/2017 05:57) Final results Test Result Flag Units (Reference) APTT 65 H SECONDS (24-34) BMP: (CYNTHIA: 02/23/2017 04:10) ( [facility] 02/23/2017 05:09) Final results Test Result Flag Units (Reference) GLUCOSE 91 mg/dL (70-110) BUN 18 mg/dL (7-18) CREATININE 0.7 mg/dL (0.6-1.3) Estimated GFR >60 mL/min Estimated GFR- >60 mL/min Note: Persistent reduction over 3 months in eGFR<60 mL/min/1.73 m2 defines CKD. Patients with eGFR values>=60 mL/min/1.73 m2 may also have CKD if evidence ofpersistent proteinuria. Additional information may be foundat www.[email or web address].org. SODIUM 142 mmol/L (136-145) POTASSIUM 3.7 mmol/L (3.5-5.1) CHLORIDE 109 H mmol/L (98-107) CARBON DIOXIDE 26 mmol/L (21-32) CALCIUM 7.0 L mg/dL (8.5-10.1) Hgb/Hct: (CYNTHIA: 02/22/2017 17:30) ( [facility] 02/22/2017 17:53) Final results Test Result Flag Units (Reference) HEMOGLOBIN 7.6 L gm/dL (13.5-17.5) HEMATOCRIT 23.6 L % (41.0-53.0) CBC w Diff: (CYNTHIA: 02/22/2017 05:20) ( [facility] 02/22/2017 06:08) Final results Test Result Flag Units (Reference) WHITE BLOOD COUNT 11.3 # K/uL (4.5-11.5) RED BLOOD COUNT 2.64 L M/uL (4.50-5.90) HEMOGLOBIN 8.1 L gm/dL (13.5-17.5) HEMATOCRIT 24.0 L % (41.0-53.0) MEAN CELL VOLUME 91 fL (80-100) MEAN CORPUSCULAR HGB 31 pg (26-34) MEAN CORPUSCULAR HGB CONC 34 g/dL (31-37) RED CELL DISTRIBUTION WIDTH 15.3 H % (11.6-14.8) PLATELET COUNT 124 L K/uL (150-400) NEUTROPHIL % 88.1 H % (50-75) LYMPH % 4.8 L % (25-40) MONO % 4.1 % (3-14) EOSINOPHIL % 2.5 % (0-4) BASOPHIL % 0.5 % (0-2) PTT: (CYNTHIA: 02/22/2017 22:52) ( [facility] 02/22/2017 23:07) Final results Test Result Flag Units (Reference) APTT 78 H SECONDS (24-34) PTT: (CYNTHIA: 02/22/2017 15:30) ( [facility] Final results Test Result Flag Units (Reference) APTT 52 H SECONDS (24-34) PTT: (CYNTHIA: 02/22/2017 05:20) ( [facility] [place] 07:21[facility] Final results Test Result Flag Units (Reference) APTT 35 H SECONDS (24-34) PT with INR: (CYNTHIA: 02/22/2017 05:20) ( [facility] [place] 06[facility]10[facility] Final results Test Result Flag Units (Reference) INR 1.6 H (0.8-1.2) Low Intensity Therapy: INR 1.5-2.0 PT range 18.5-23.1Mod.Intensity Therapy: INR 2.0-3.0 PT range 23.1-31.5High Intensity Therapy: INR 2.5-3.5 PT range 27.4-35.5High Intensity Therapy 2: INR 3.0-4.0 PT range 31.5-39.3 [id number]: (CYNTHIA: 02/22/2017 00:30) ( MsgRcvd 02/22/2017 01:19) Final results Test Result Flag Units (Reference) TOTAL PSA SCREEN-MEDICARE 3.07 ng/mL (0-4.00) New methodology effective 08/20/03This method has an average 9% increase in PSA ascompared to our previous method. CMP: (CYNTHIA: 02/22/2017 05:20) ( MsgRcvd 02/22/2017 06:16) Final results Test Result Flag Units (Reference) GLUCOSE 95 mg/dL (70-110) BUN 26 # H mg/dL (7-18) CREATININE 0.8 mg/dL (0.6-1.3) Estimated GFR >60 mL/min Estimated GFR- >60 mL/min Note: Persistent reduction over 3 months in eGFR<60 mL/min/1.73 m2 defines CKD. Patients with eGFR values>=60 mL/min/1.73 m2 may also have CKD if evidence ofpersistent proteinuria. Additional information may be foundat www.kidney.org. SODIUM 143 mmol/L (136-145) POTASSIUM 4.1 mmol/L (3.5-5.1) CHLORIDE 110 H mmol/L (98-107) CARBON DIOXIDE 27 mmol/L (21-32) CALCIUM 7.5 L mg/dL (8.5-10.1) TOTAL PROTEIN 4.7 L g/dL (6.4-8.2) ALBUMIN 2.4 L g/dL (3.3-5.0) BILIRUBIN, TOTAL 0.9 mg/dL (0.0-1.0) ALKALINE PHOSPHATASE 35 L U/L (46-116) AST (SGOT) 36 U/L (15-37) ALT (SGPT) 23 U/L (12-78) MAGNESIUM 2.0 mg/dL (1.8-2.4) UA-Culture if indicated: (CYNTHIA: 02/21/2017 03:48) ( [facility] 02/21/2017 05:11) Final results Test Result Flag Units (Reference) URINE COLOR YELLOW URINE APPEARANCE CLEAR URINE GLUCOSE NEGATIVE (NEGATIVE) URINE BILIRUBIN NEGATIVE (NEGATIVE) URINE KETONE NEGATIVE (NEGATIVE) URINE SPECIFIC GRAVITY 1.010 (1.010-1.030) URINE PH 6.0 (5.0-8.0) URINE PROTEIN NEGATIVE (NEGATIVE) URINE UROBILINOGEN 0.2 EU/dL (0.2-1.0) URINE NITRITE NEGATIVE (NEGATIVE) URINE BLOOD NEGATIVE (NEGATIVE) URINE LEUK ESTERASE NEGATIVE (NEGATIVE) URINE RBC 3-5 rbc/hpf (0-1) URINE WBC 0-1 wbc/hpf (0-1) URINE EPITHELIAL CELLS NONE SEEN EPI/hpf (0-5) URINE BACTERIA NONE SEEN (NONE SEEN) URINE COMMENT CULT NOT INDICATED URINE CULTURES ARE SET-UP BASED ON THE FOLLOWING CRITERIA:POSITIVE NITRITEPOSITIVE LEUKOCYTE ESTERASEGREATER THAN 10 WHITE BLOOD CELLSMODERATE (2+) OR GREATER BACTERIA Hgb/Hct: (CYNTHIA: 02/21/2017 17:57) ( [facility] 02/21/2017 18:04) Final results Test Result Flag Units (Reference) HEMOGLOBIN 8.3 L gm/dL (13.5-17.5) HEMATOCRIT 24.9 L % (41.0-53.0) Hgb/Hct: (CYNTHIA: 02/21/2017 12:15) ( [facility] 02/21/2017 12:34) Final results Test Result Flag Units (Reference) HEMOGLOBIN 7.6 L gm/dL (13.5-17.5) HEMATOCRIT 22.5 L % (41.0-53.0) CBC w Diff: (CYNTHIA: 02/21/2017 00:30) ( [facility] 02/21/2017 02:47) Final results Test Result Flag Units (Reference) WHITE BLOOD COUNT 5.1 K/uL (4.5-11.5) RED BLOOD COUNT 2.08 L M/uL (4.50-5.90) HEMOGLOBIN 6.5 *L gm/dL (13.5-17.5) CRITICAL RESULTS CALLEDCalled to [facility] 02/21/17 0109Wer 2 patient identifiers used? YWas the result read back? Y HEMATOCRIT 19.1 *L % (41.0-53.0) CRITICAL RESULTS CALLEDCalled to [facility] 02/21/17 0109Wer 2 patient identifiers used? YWas the result read back? Y MEAN CELL VOLUME 92 fL (80-100) MEAN CORPUSCULAR HGB 31 pg (26-34) MEAN CORPUSCULAR HGB CONC 34 g/dL (31-37) RED CELL DISTRIBUTION WIDTH 13.8 % (11.6-14.8) PLATELET COUNT 173 K/uL (150-400) NEUTROPHIL % 74.3 % (50-75) LYMPH % 14.5 L % (25-40) MONO % 8.2 % (3-14) EOSINOPHIL % 2.6 % (0-4) BASOPHIL % 0.4 % (0-2) RBC MORPHOLOGY 2+ HYPOCHROMIA~~1+ MICROCYTOSIS PT with INR: (CYNTHIA: 02/21/2017 00:30) ( MsgRcvd 02/21/2017 01:09) Final results Test Result Flag Units (Reference) INR 6.6 *H (0.8-1.2) CRITICAL RESULTS CALLEDCalled to [facility] 02/21/17 0108Were 2 patient identifiers used? YWas the result read back? YLow Intensity Therapy: INR 1.5-2.0 PT range 18.5-23.1Mod.Intensity Therapy: INR 2.0-3.0 PT range 23.1-31.5High Intensity Therapy: INR 2.5-3.5 PT range 27.4-35.5High Intensity Therapy 2: INR 3.0-4.0 PT range 31.5-39.3 CHEM 13 PANEL: (CYNTHIA: 02/21/2017 00:30) ( MsgRcvd 02/21/2017 01:04) Final results Test Result Flag Units (Reference) GLUCOSE 99 mg/dL (70-110) BUN 50 H mg/dL (7-18) CREATININE 0.9 mg/dL (0.6-1.3) Estimated GFR >60 mL/min Estimated GFR- >60 mL/min Note: Persistent reduction over 3 months in eGFR<60 mL/min/1.73 m2 defines CKD. Patients with eGFR values>=60 mL/min/1.73 m2 may also have CKD if evidence ofpersistent proteinuria. Additional information may be foundat www.kidney.org. SODIUM 147 H mmol/L (136-145) POTASSIUM 4.2 mmol/L (3.5-5.1) CHLORIDE 111 H mmol/L (98-107) CARBON DIOXIDE 29 mmol/L (21-32) CALCIUM 8.4 L mg/dL (8.5-10.1) TOTAL PROTEIN 5.6 L g/dL (6.4-8.2) ALBUMIN 3.0 L g/dL (3.3-5.0) BILIRUBIN, TOTAL 0.3 mg/dL (0.0-1.0) ALKALINE PHOSPHATASE 39 L U/L (46-116) AST (SGOT) 26 U/L (15-37) ALT (SGPT) 33 U/L (12-78) MAGNESIUM 2.0 mg/dL (1.8-2.4) CPK 74 U/L (24-260) TROPONIN I <0.05 ng/mL (0.00-1.5) TROPONIN REFERENCE RANGE:<0.1 NEGATIVE0.1-1.5 INDETERMINANT>1.5 POSITIVE MRSA Screen: (CYNTHIA: 02/21/2017 04:45) ( [facility] [place] [facility] Final results Test Result Flag Units (Reference) MRSA SCREEN DATE: 02/23/17 MRSA ISOLATED?: NO MRSA ISOLATED MRSA SCREEN ONLY Type & Cross: (CYNTHIA: 02/21/2017 00:30) ( [facility] [place] 02[facility]21[facility] 16:14) Final results Test Result Flag Units (Reference) LEUKOREDUCED PACKED CELLS [id number] BP PC TRANSFUSED 02/21/17 1314 [id number] BP PC TRANSFUSED 02/21/17 0817 [id number] BP PC TRANSFUSED 02/21/17 0442 PATIENT BLOOD TYPE B Positive Above is a corrected result. Previously reported on ( MsgRcvd 02/21/2017 02:34) as: PATIENT BLOOD TYPE B Positive ANTIBODY SCREEN NEGATIVE Above is a corrected result. Previously reported on ( MsgRcvd 02/21/2017 02:34) as: ANTIBODY SCREEN NEGATIVE . PROGRESS AND PROCEDURES Course of Care: Heplock Vitamin K 10 mg IM 3 Units PRBC's ordered. Critical care performed (95 minutes). Time is exclusive of separately billable procedures. Time includes: direct patient care, patient reassessment, coordination of patient care, interpretation of data (laboratory data and pulse oximetry), review of patient's medical records and documentation of patient care. Procedures included in critical care time: peripheral IV placement and phlebotomy. Discussed case with on-call health care provider, (Abdi). Reviewed test results. Agreed upon treatment plan and decision to admit. Health care provider will see patient in hospital. Patient/family counseled. Old medical records ordered. Disposition orders written. Disposition: Admitted to Acute Care. CLINICAL IMPRESSION GI bleed Critical anemia Weakness Over-anticoagulation. (Electronically signed by Harpreet Polk MD 02/23/2017 14:38)
--- NOTE | 2017-02-21 01:57 | ED NURSING NOTES ---
Clinical Report - Nurses [place] [address] [place] [address] 02/20/2017 22:14 Patient: SLY MUSTAFA TRIAGE Triage time 23:47 Feb 20 2017. Acuity: LEVEL 3. Chief Complaint: (States needs a blood transfusion per MD). DANIELA COMA SCORE: [place] Coma Scale: 15- eyes open spontaneously (4); best verbal response- oriented x 4 (5); best motor response- obeys commands (6). --23:58 Juan Sharpe R.N. 23:47 02/20/17. BP: 114/90. HR: 74. RR: 18. O2 saturation: 97%. Temp: 98.6 F. Pain level now 0/10. --23:58 Juan Sharpe R.N. Weight: 79.3 kg stated. Height/Length: 71 inches Per Patient. BMI: 24.4. --23:55 Juan Sharpe R.N. Medications Aricept Oral (Tablet 5 mg), daily. Lovenox Subcutaneous, 2x a day. Namenda Oral 10 mg, 2x a day. Warfarin Sodium Oral 15 mg, daily. --23:48 Juan Sharpe R.N. Allergies No Known Drug Allergy. --23:48 Juan Sharpe R.N. History Arrived by private vehicle. Historian: patient. Accompanied by family. The patient has had weakness. No fever, cough, difficulty breathing or skin rash. Denies muscle aches. Treatment CHEMICAL COMPOUNDER: None. PAST MEDICAL HX: Immunizations: up-to-date. SOCIAL HX: Never smoker. No alcohol use or drug use. SELF HARM ASSESSMENT: A self harm assessment was performed. The patient answered "no" to the question "Have you recently felt down, depressed, or hopeless?" and "Do you have thoughts of harming or killing yourself?". FALL RISK ASSESSMENT: Fall risk assessment completed. No fall risk identified. NUTRITIONAL RISK ASSESSMENT: The nutritional risk assessment revealed no deficiencies. FUNCTIONAL ASSESSMENT: Functional assessment: no impairments noted. LEARNING NEEDS ASSESSMENT: The learning needs assessment revealed no barriers. ABUSE ASSESSMENT: Abuse assessment: (yes) The patient was asked "Do you feel safe in your home?". SKIN INTEGRITY ASSESSMENT: Skin integrity risk assessment completed. No skin integrity risk identified. --23:58 Juan Sharpe R.N. PROBLEMS: Anemia. Dyspnea. Rectal Prolapse. Dimentia . Cardiac Procedures. --23:49 Juan Sharpe R.N. ADDITIONAL SURGERIES: Cardiac valve replacement . Hernia Repair. Pacemaker. --23:49 Juan Sharpe R.N. Interventions ID band on patient. --23:58 Juan Sharpe R.N. PHYSICAL ASSESSMENT Ambulatory to room. GENERAL / NEURO / PSYCH: Alert. Oriented X 4. Appears in distress. HEENT: Pupils equal, round and reactive to light. No facial asymmetry noted. Mucous membranes are pink. RESPIRATORY: Respirations not labored. Chest nontender. Breath sounds within normal limits. ( States SOB at times). CVS: Normal sinus rhythm noted. Capillary refill less than 2 seconds. Pulses within normal limits. GI / : Abdomen soft and nontender and normal bowel sounds. SKIN: Skin intact. Skin is warm and dry. Normal skin turgor. --23:59 Juan Sharpe R.N. NURSING PROGRESS NOTES The initial plan of care for this patient includes an assessment with efforts to address patient positioning and appropriate ambient lighting. Pulse oximeter and NIBP monitor placed on patient. Head of bed elevated 75 degrees. Reassurance given. Call light placed in reach. Side rails up x 2. Bed placed in lowest position. Brakes of bed on. --23:59 Juan Sharpe R.N. ( ADMIT PACKAGE GIVEN TO PT.). --01:57 Calvin Michael 00:13 02/21/2017 Site #1 started via IV in the left forearm with an 20g angiocath, with aseptic technique and good blood return; one attempt. Blood drawn: rainbow set. Labeled in the presence of the patient and sent to the lab. Saline lock flushed with 10 mL saline (Started by RN prior to my assuming care of pt.). --03:14 Emy Nevarez R.N. 02:00 02/21/2017 Vit K (Vitamin K1) IM 10 mg given. Given in the right ventral gluteus. Allergies verified and confirmed 5 rights. --02:00 Emy Nevarez R.N. DISPOSITION / DISCHARGE 03:16 02/21/17. BP: 108/58. HR: 71. RR: 15. O2 saturation: 95%. Pain level now: 0/10. --03:17 Emy Nevarez R.N. Report was given to a nurse. All questions were answered. Report was acknowledged. --03:17 Emy Nevarez R.N. Patient's personal items include, clothing; items were placed in belongings bag and transported with the patient. Collection of belongings was witnessed by 1 nurse. --03:18 Emy Nevarez R.N. 03:19 02/21/2017 Site #[address] upon admission. Flushed with 10 mL saline; flushes easily. --03:19 Emy Nevarez R.N. Transported via stretcher by nurse with IV. --03:33 Emy Nevarez R.N. Locked/Released at 02/21/2017 4:40 by Emy Nevarez R.N.
--- NOTE | 2017-02-21 04:08 | History & Physical Report ---
Information Source Information Source: Self Reliability: Poor History Chief Complaint dark stools and anemia History of Present Illness Pt is an 87 year old male presenting with anemia and history of dark stools. Patient is a very poor historian and the information provided by the patient is convuluted and does not seem accurate. However patient reports that for the past few weeks he has been noticing that he has occasional bouts of very dark stools. He went to his pmd for this problem and the patient was asked to take a blood test, patient had the blood test done and was asked to go to the emergency room. Patient came to the emergency room but did not recall what value was needed and was subsequently discharged home. Patient returned again today, unsure to as what prompted him to arrive, however he was found to be anemic with a very elevated inr. Patient reports that he has not had any dark stools recently however he is feeling weaker than usual. Lastly patient was seen to have extensive ecchymosis on his belly. Patient claims that he was taking lovenox shots recetnly on top of the coumadin. He is not sure to as who told him to begin lovenox injections. Patients abdomen has extensive ecchymosis but no evidence of hematoma. Patient History 1. GI bleed 2. HIGH INR 3. Severe anemia 4. Dementia Social History Pt reports that he does not smoke, drink or use illicit substances Medications and Allergies Medications Home Meds Enoxaparin Coumadin 10 mg daily Memantine 10 mg daily ariprazole 5 mg daily Current Medications Sig/Som Start time Last Medication Dose Route Stop Time Status Admin Aripiprazole 5 MG DAILY 02/21 900 UNV PO Memantine 10 MG BID 02/21 900 UNV PO Pantoprazole Sodium 40 MG DAILY@0600 02/21 0600 AC 02/21 IV 0513 Acetaminophen 650 MG Q6H PRN 02/21 0400 AC PO Sodium Chloride 1,000 ML ASDIRECTED 02/21 040 AC 02/21 IV 0450 Ondansetron HCl 4 MG Q4H PRN 02/21 0215 AC IV Allergies Coded Allergies: NKA (02/21/17) O KNOWN DRUG ALLERGY -23;48 Juan Sharpe RN Review of Systems Constitutional Denies: Fever, Chills, Sweats, Weakness, Malaise, Other. Eyes Denies: Pain, Vision Change, Conjunctival Inflammation, Eyelid Inflammation, Redness, Other. Respiratory Denies: Cough, Dry, SOB w/exertion, Wheezing, Hemoptysis, Pleuritic Pain, Sputum , Other. Cardiovascular Light-headedness. Denies: Chest Pain, Palpitations, Orthopnea, PND, Edema, Other. Gastrointestinal Other (dark stools ). Denies: Nausea, Vomiting, Abdominal Pain, Diarrhea, Constipation, Melena, Hematochezia. Genitourinary Denies: Dysuria, Frequency, Incontinence, Hematuria, Retention, Other. Musculoskeletal Denies: Neck Pain, Shoulder Pain, Arm Pain, Back Pain, Hand Pain, Leg Pain, Foot Pain, Other. Skin Bruising. Denies: Rash, Lesions, Jaundice, Other. Neurological Confusion. Denies: Weakness, Numbness, Incoordination, Change in speech, Seizures, Other. Physical Exam Vital Signs / I&Os Vital Signs Date Time Temp Pulse Resp B/P Pulse O2 O2 Flow FiO2 Ox Delivery Rate 02/21 0604 98.4 65 20 98/44 99 02/21 0534 98.4 66 16 95/51 99 02/21 0508 98.4 69 101/55 02/21 0404 Room Air 02/21 0355 98.4 75 18 124/62 99 Room Air 0.0 General Appearance Alert, Cooperative, No acute distress HEENT Atraumatic, PERRLA, Moist mucous membranes Lungs Clear to auscultation Cardiovascular No murmurs, gallops, rubs, - diastolic murmur right of the sternum Abdomen Soft, No tenderness, No guarding, - unknown if blood in stool Extremities No cyanosis, No clubbing, No edema, Normal pulses Neurological Normal speech, Cranial nerves intact, No lateralizing signs Psych/Mental Status Mood normal LAB Results Laboratory Tests 02/21 02/21 0030 0348 Chemistry Plasma Sodium (136 - 145 mmol/L) 147 Plasma Potassium (3.5 - 5.1 mmol/L) 4.2 Plasma Chloride (98 - 107 mmol/L) 111 CO2 (Enzymatic) (21 - 32 mmol/L) 29 BUN (7 - 18 mg/dL) 50 Creatinine (0.6 - 1.3 mg/dL) 0.9 Est GFR ( Amer) (mL/min) >60 Est GFR (Non-Af Amer) (mL/min) >60 Glucose (70 - 110 mg/dL) 99 Plasma Calcium (8.5 - 10.1 mg/dL) 8.4 Plasma Magnesium (1.8 - 2.4 mg/dL) 2.0 Total Bilirubin (0.0 - 1.0 mg/dL) 0.3 AST (15 - 37 U/L) 26 ALT (12 - 78 U/L) 33 Alkaline Phosphatase (46 - 116 U/L) 39 Creatine Kinase (24 - 260 U/L) 74 Troponin (0.00 - 1.5 ng/mL) <0.05 Total Protein (6.4 - 8.2 g/dL) 5.6 Albumin (3.3 - 5.0 g/dL) 3.0 Coagulation INR (0.8 - 1.2) 6.6 Hematology WBC (4.5 - 11.5 K/uL) 5.1 RBC (4.50 - 5.90 M/uL) 2.08 Hgb (13.5 - 17.5 gm/dL) 6.5 Hct (41.0 - 53.0 %) 19.1 MCV (80 - 100 fL) 92 MCH (26 - 34 pg) 31 RDW (11.6 - 14.8 %) 13.8 Neut % (Auto) (50 - 75 %) 74.3 Lymph % (Auto) (25 - 40 %) 14.5 [place] % (Auto) (3 - 14 %) 8.2 Eos % (Auto) (0 - 4 %) 2.6 Baso % (Auto) (0 - 2 %) 0.4 Plt Count, EDTA (150 - 400 K/uL) 173 RBC Morphology (9696 A) 1+ MICROCYTOSIS PUBS MCHC (31 - 37 g/dL) 34 Urines Urine Color YELLOW Urine Appearance CLEAR Urine pH (5.0 - 8.0) 6.0 Ur Specific [place] (1.010 - 1.030) 1.010 Urine Protein (NEGATIVE) NEGATIVE Urine Ketones (NEGATIVE) NEGATIVE Urine Blood (NEGATIVE) NEGATIVE Urine Nitrite (NEGATIVE) NEGATIVE Urine Bilirubin (NEGATIVE) NEGATIVE Urine Urobilinogen (0.2 - 1.0 EU/dL) 0.2 Ur Leukocyte Esterase (NEGATIVE) NEGATIVE Urine RBC (0 - 1 rbc/hpf) 3-5 Urine WBC (0 - 1 wbc/hpf) 0-1 Ur Epithelial Cells (0 - 5 EPI/hpf) NONE SEEN Urine Bacteria (NONE SEEN) NONE SEEN Urine Glucose (NEGATIVE) NEGATIVE Urine Comment CULT NOT INDICATED Microbiology Date/Time Procedure - Status Source Growth 02/21 0445 MRSA Screen - RECD NASAL Assessment and Plan Problem List 1. GI bleed Plan - will hold anti-coagulation - unknown if guiac positive, no stool in the vault - will recommend flex sigmoid - will continue to trend cbc and monitor for bleeding 2. HIGH INR Plan - secondary to inappropriate administration of medication - pt was taking simultaneously lovenox and coumadin - inr was elevated 6.1 - pt was given vitamin k - no need for ffp at the moment 3. Dementia Plan - will continue with pts home medications
[2017-02-21] MEDS ORDERED: NAMENDA10 MG PO (04:49)
[2017-02-21] MEDS ORDERED: WARFARIN SODIUM10 MG PO (04:49)
[2017-02-21] MEDS ORDERED: ARICEPT5 MG PO (04:49)
[2017-02-21] MEDS ORDERED: LOVENOX100 MG/ML SC (04:49)
--- NOTE | 2017-02-21 06:30 | History & Physical Report ---
Information Source Information Source: Self Reliability: Poor Medications and Allergies Allergies Coded Allergies: NKA (02/21/17) O KNOWN DRUG ALLERGY -23;48 Juan Sharpe RN
--- NOTE | 2017-02-21 06:30 | History & Physical Report ---
Information Source Information Source: Self Reliability: Poor Medications and Allergies Allergies Coded Allergies: NKA (02/21/17) O KNOWN DRUG ALLERGY -23;48 Juan Sharpe RN
--- NOTE | 2017-02-21 08:37 | Progress Note ---
Subjective General Note Date: February 21, 2017 Admission Date: February 21, 2017 Hospital Day: 1 PCP: Kay Status: Advanced Directive: Room: 303 Brief history 87 year old male presenting with anemia and history of dark stools. Patient was found to be anemic when he was seen by primary care. Patient followed up after receiving a call to the emergency department with a low hematocrit. Patient was admitted under observation for blood transfusion. Admission through Dr. Sergio Patton. Physical Exam Vital Signs / I&Os Vital Signs Date Time Temp Pulse Resp B/P Pulse O2 O2 Flow FiO2 Ox Delivery Rate 02/21 0804 Nasal 2.0 Cannula 02/21 0804 98.4 76 18 135/66 98 Nasal 2.0 Cannula 02/21 0700 98.2 67 19 109/51 99 Room Air 0.0 02/21 0640 98.2 02/21 0630 98.2 64 19 98/52 99 Room Air 0.0 02/21 0615 67 19 100/44 99 Room Air 02/21 0604 98.4 65 20 98/44 99 02/21 0534 98.4 66 16 95/51 99 02/21 0508 98.4 69 101/55 02/21 0404 Room Air 02/21 0355 98.4 75 18 124/62 99 Room Air 0.0 General Appearance Cooperative Lungs Clear to auscultation Cardiovascular Normal S1 and S2 Assessment and Plan Problem List 1. Severe anemia Plan Although by Dr. Willis; monitor changes 2. HIGH INR Plan held Coagulation held 3. GI bleed Plan Receiving units of blood 4. Dementia Plan Current status: Anticipated discharge date: Anticipated discharge placement: Patient care time: Time spent in chart review, patient interview, physical exam, CPOE, and care documentation: 25 minutes Visit to patient today: Complexity of care: Moderate
--- NOTE | 2017-02-21 13:37 | DIAGNOSTIC IMAGING REPORT ---
PROCEDURE: XR ABD SERIES 2V ABD/1V CHEST INDICATION: SEVERE LOWER BACK PAIN TECHNIQUE: AP supine and upright views with PA view chest. COMPARISON: Abdominal CT 02/19/2017 and chest 02/18/2017 FINDINGS: ABDOMEN: Bowel pattern is normal. No evidence of free air. Soft tissues and osseous structures are normal. CHEST: Lungs are clear. Heart and mediastinum are normal. Thorax is normal. IMPRESSION: 1. Negative acute abdomen series.
--- NOTE | 2017-02-21 13:56 | DIAGNOSTIC IMAGING REPORT ---
PROCEDURE: CT THORAX WITH CONTRAST INDICATION: Abnormal chest x-ray. TECHNIQUE: 125 ml of Isovue 300 was injected intravenously and axial images were obtained of the chest with coronal and sagittal reformations. COMPARISON: Chest x-ray 02/18/2017. FINDINGS: There are bilateral bullae present. There is a 4 cm lateral left lower lobe sharply marginated soft tissue mass with air collection anteriorly, 7 mm nodule in the right middle lobe medially (image 50) and the right basilar rounded atelectasis associated with dystrophic calcification. There is also minor right diaphragmatic calcification. No effusion or adenopathy. Mild atherosclerosis of the aorta. Enlarged pulmonary arteries suggestive of pulmonary hypertension. Mitral valvuloplasty, sternotomy and left-sided pacemaker. Normal heart size. Calcified splenic granulomas. Bilateral renal cysts. Small L3 sclerotic lesion, bone island versus metastasis. Mild to moderate degenerative changes of the spine. IMPRESSION: 1. Bibasilar parenchymal changes suggestive of rounded atelectasis and possible asbestosis. Neoplastic change is not entirely excluded. Recommend comparison with prior outside studies. If unavailable, consider PET scan. 2. Results discussed with Dr. Stein
--- NOTE | 2017-02-21 21:29 | DIAGNOSTIC IMAGING REPORT ---
PROCEDURE: CT ABD/PELVIS WITH CONTRAST CLINICAL INDICATION: LOWER BACK PAIN TECHNIQUE: 100 ml of Isovue 300 were injected intravenously and axial images were obtained of the entire abdomen and pelvis with sagittal and coronal reformations. COMPARISON: CT abdomen/pelvis 02/19/2017. FINDINGS: ABDOMEN: Stable bibasilar opacities which may represent rounded atelectasis with dystrophic calcifications. New tiny right pleural effusion. Mitral valvuloplasty. Sternotomy. Normal heart size. Distended gallbladder. Pancreas, spleen (calcified granulomas) and adrenal glands are normal. Small bilateral renal cysts. Moderate atherosclerosis of the aorta with a percent stenosis of the celiac trunk. Mild atherosclerosis of the SMA. Moderate stool. Small L3 vertebral body sclerotic density. Moderate dextroscoliosis and severe degenerative changes. PELVIS: Normal appendix. Enlarged prostate (5.5 cm) with dystrophic calcifications. Markedly distended bladder with 7 cm right and two left bladder diverticula (1 and 2 cm). No free fluid or inflammatory changes. Scattered small sclerotic osseous densities in the pelvis. IMPRESSION: 1. Stable bibasilar parenchymal changes suggestive of rounded atelectasis and possible asbestosis with new tiny right pleural effusion 2. Moderate stool 3. Distended gallbladder 4. 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 Enlarged prostate 6. Markedly distended urinary bladder with 7 cm right lateral bladder diverticulum. 7. Small scattered sclerotic densities of the lumbar spine and pelvis, bone islands versus metastatic disease. 8. Results called to Dr. Stein (voicemail) All CT scans at this facility use dose modulation, iterative reconstruction, and/or weight-based dosing when appropriate to reduce radiation dose to as low as reasonably achievable.
--- NOTE | 2017-02-21 23:22 | Progress Note ---
Subjective General Patient with incrased confusion this am. Denies pain. Feeling well toehr than weakness. Denies pain. Physical Exam Vital Signs / I&Os Vital Signs Date Time Temp Pulse Resp B/P Pulse O2 O2 Flow FiO2 Ox Delivery Rate 02/22 2048 2.0 02/21 2011 Nasal 2.0 Cannula 02/21 181 37.3 68 20 93/51 100 Nasal 2.0 Cannula 02/21 1624 73 02/21 1612 37.3 74 19 89/52 98 Nasal 2.0 Cannula 02/21 1600 2.0 02/21 1522 71 15 92/48 97 Nasal 2.0 Cannula 02/21 1419 36.8 95 24 84/47 95 Nasal 2.0 Cannula 02/21 1345 36.9 78 18 89/45 95 Nasal 2.0 Cannula 02/21 1330 37.2 79 18 88/48 95 Nasal 2.0 Cannula 02/21 1311 37.2 82 23 93/44 100 Nasal 2.0 Cannula 02/21 1143 37.6 85 21 92/44 100 Nasal 2.0 Cannula 02/21 1100 38.1 93 24 94/48 100 Nasal 2.0 Cannula 02/21 1017 37.1 104 20 117/62 100 Nasal 2.0 Cannula 02/21 0912 37.1 88 20 110/54 100 Nasal 2.0 Cannula 02/21 0830 37.2 81 20 110/54 100 Nasal 2.0 Cannula 02/21 0804 Nasal 2.0 Cannula 02/21 0804 36.9 76 18 135/66 98 Nasal 2.0 Cannula 02/21 0700 36.8 67 19 109/51 99 Room Air 0.0 02/21 0640 36.8 02/21 0630 36.8 64 19 98/52 99 Room Air 0.0 02/21 0615 67 19 100/44 99 Room Air 02/21 0604 36.9 65 20 98/44 99 02/21 0534 36.9 66 16 95/51 99 02/21 0508 36.9 69 101/55 02/21 0404 Room Air 02/21 0355 36.9 75 18 124/62 99 Room Air 0.0 General Appearance Alert, Cooperative, No acute distress Lungs Clear to auscultation, Normal air movement Cardiovascular Regular rate and rhythm, Normal S1 and S2, No murmurs, gallops, rubs Abdomen Normal bowel sounds, Soft, No tenderness Extremities No edema Assessment and Plan Problem List 1. Severe anemia Plan 2/2 GI bleed from supratherapeutic INR. 2. HIGH INR Plan On coumadin 2/2 mechanical valve. On couamdin and lovenox until monday 2/2 subtherapeutic INR. INR in ER on Monday: 2.5 and lovenox stopped per family. 3. GI bleed Plan Recent colonoscopy with polypectomy (Benign). Also with rectal prolapse with ongoing bleeding per patient. Started on PPI. s/p pRBC x 3 units. 4. Dementia Plan Worsening. Recommended 24 hr care with family. 5. Bone lesion Plan bone islands vs. metastasis (possibly from prostrate). Family conference planned for tomorrow at 1pm. Will discuss code status at this time.
[2017-02-22 00:01] VITALS: BP 93/49
[2017-02-22 03:32] VITALS: BP 90/52
[2017-02-22 07:28] VITALS: BP 97/53
[2017-02-22 15:17] VITALS: BP 97/57
[2017-02-22 19:14] VITALS: BP 97/48
[2017-02-22 22:19] VITALS: BP 104/49
[2017-02-23] VITALS (10 sets, daily range): BP systolic 89–133; BP diastolic 52–64
--- NOTE | 2017-02-23 08:44 | Progress Note ---
Subjective General Patient feeling well this am. States he slept well last night. No signs of bleeding. No more pain last night or this am. Taking po well. Physical Exam Vital Signs / I&Os Vital Signs Date Time Temp Pulse Resp B/P Pulse O2 O2 Flow FiO2 Ox Delivery Rate 02/23 0751 1.5 02/23 0657 36.8 66 18 115/57 99 Room Air 1.5 02/23 0220 36.8 68 18 98/52 99 Room Air 1.5 02/23 0055 98 1.5 02/22 2312 62 02/22 2219 36.8 63 17 104/49 98 Room Air 0.0 02/22 2045 Room Air 0.0 02/22 1914 36.6 65 18 97/48 98 Room Air 0.0 02/22 1517 36.9 61 17 97/57 100 Nasal 2.0 Cannula I&O 02/23 0000 02/22 1600 02/22 0800 Intake Total 2390 1920 1875 Output Total 600 750 820 Balance 1790 1170 1055 General Appearance Alert, No acute distress Lungs Clear to auscultation, Normal air movement Cardiovascular Regular rate and rhythm, Normal S1 and S2, 2/6 systolic murmur increased at base. Abdomen Normal bowel sounds, Soft Extremities No edema Assessment and Plan Problem List 1. GI bleed Plan from supratherapeutic INR. Resolved. Will advance diet today. 2. HIGH INR Plan Resolved. Will restart couadin today. Previous home dose: 15 mg q daily except once weekly 10 mg. Previous subtherapeutic dose: 15 mg po q daily except twice weekly 10 mg. 3. Severe anemia Plan Improved and stable. Will start iron. 4. Mechanical heart valve present Plan Stable. requiring anticoagulation. 5. Bone lesion Plan Further evaluation with bone scan today. 6. Dementia Plan On meds. 7. BPH (benign prostatic hypertrophy) with urinary retention Plan Started on meds last night. Will do voiding trial today.
--- NOTE | 2017-02-23 14:38 | ED MED RECONCILIATION SUMMARY ---
Patient: SLY MUSTAFA Medication Reconciliation Report [facility] VisitID: [id number] [address] [place] [address] 87y, M Registration Date/Time: 02/20/2017 Weight: 79.3 kg Height/Length: 71 in. BMI: 24.4 ALLERGIES: No Known Drug Allergy The patient's Home Medications are listed below: THE FOLLOWING MEDICATIONS NEED TO BE RECONCILED: Aricept Oral (5 mg), daily Lovenox Subcutaneous, 2x a day Namenda Oral 10 mg, 2x a day Warfarin Sodium Oral 15 mg, daily The source(s) of the original Home Medication information: Not obtained. The following Medications were given to the patient in the Emergency Department: Vit K [IM] IM 10 mg, administered: 02/21/2017 2:00:00 AM The following Medications were prescribed to the patient: None.
--- NOTE | 2017-02-23 14:38 | ED MED RECONCILIATION SUMMARY ---
Patient: SLY MUTSAFA Medication Reconciliation Report [facility] VisitID: [id number] [address] [place] [address] 87y, M Registration Date/Time: 02/20/2017 Weight: 79.3 kg Height/Length: 71 in. BMI: 24.4 ALLERGIES: No Known Drug Allergy The patient's Home Medications are listed below: THE FOLLOWING MEDICATIONS NEED TO BE RECONCILED: Aricept Oral (5 mg), daily Lovenox Subcutaneous, 2x a day Namenda Oral 10 mg, 2x a day Warfarin Sodium Oral 15 mg, daily The source(s) of the original Home Medication information: Not obtained. The following Medications were given to the patient in the Emergency Department: Vit K [IM] IM 10 mg, administered: 02/21/2017 2:00:00 AM The following Medications were prescribed to the patient: None.
--- NOTE | 2017-02-23 14:38 | ED DISCHARGE INSTRUCTIONS ---
Patient: SLY MUSTAFA General Instructions [facility] VisitID: [id number] [address] [place] [address] 87y, M Registration Date/Time: 02/20/2017 GI bleed Critical anemia Weakness Over-anticoagulation. (Electronically signed by Harpreet Polk MD 02/23/2017 14:38)
--- NOTE | 2017-02-23 14:38 | ED DISCHARGE INSTRUCTIONS ---
Patient: SLY MUSTAFA General Instructions [facility] VisitID: [id number] [address] [place] [address] 87y, M Registration Date/Time: 02/20/2017 GI bleed Critical anemia Weakness Over-anticoagulation. (Electronically signed by Harpreet Polk MD 02/23/2017 14:38)
--- NOTE | 2017-02-23 14:38 | ED MAR SUMMARY ---
..... Medication Administration Record [facility] [address] [place] [address] Patient: SLY MUSTAFA Visit ID: [id number] 87y, M Weight: 79.3 kg Height/Length: 71 in BMI: 24.4 ALLERGIES: No Known Drug Allergy Given 02:00 02/21/2017 Emy Nevarez R.N. Medication Administered: VIT K [IM] (VITAMIN K1), Dose: 10 mg IM. Medication Ordered: Vit K IM 10 mg (NOW).
--- NOTE | 2017-02-23 14:38 | ED MAR SUMMARY ---
..... Medication Administration Record [facility] [address] [place] [address] Patient: SLY MUSTAFA Visit ID: [id number] 87y, M Weight: 79.3 kg Height/Length: 71 in BMI: 24.4 ALLERGIES: No Known Drug Allergy Given 02:00 02/21/2017 Emy Nevarez R.N. Medication Administered: VIT K [IM] (VITAMIN K1), Dose: 10 mg IM. Medication Ordered: Vit K IM 10 mg (NOW).
--- NOTE | 2017-02-23 17:15 | DIAGNOSTIC IMAGING REPORT ---
PROCEDURE: NM BONE/JOINT WHOLE BODY INDICATION: Sclerotic osseous lesions seen on CT. RULE OUT METASTATIC DIEASE. TECHNIQUE: The patient was injected intravenously with 26.0 mCi of technetium 99m MDP. Following a five hour delay, whole body anterior and posterior planar scintigraphic images were acquired. Spot planar images of the pelvis and spine were acquired. COMPARISON: Correlation made to CT of the abdomen pelvis 02/21/[address] 02/21/2017 FINDINGS: Axial skeleton: There is mild radiotracer uptake in the cervical spine suggestive of degenerative disc disease. Patches of radiotracer uptake are present in the sternum and sternoclavicular junctions. The patient has had a prior sternotomy and there are no suspicious sclerotic lesions on chest CT. There is no abnormal radiotracer uptake in the region of L3 or anywhere within the pelvis to correspond to the sclerotic lesions mentioned on prior CT scan. Radiotracer uptake is present over the nasal bone. Appendicular skeleton: Symmetric radiotracer activity is present in the glenohumeral joints. Radiotracer was excreted physiologically. The urinary bladder is enlarged and lobulated, consistent with the appearance of bladder outlet obstruction and bladder diverticula. IMPRESSION: 1. No scintigraphic evidence to suggest osseous metastatic disease. 2. Radiotracer activity corresponds to the healing sternotomy changes, degenerative change of the cervical spine humeral joints, and potential nasal bone fracture. Correlate clinically.
[2017-02-24] VITALS (12 sets, daily range): BP systolic 91–154; BP diastolic 40–75
--- NOTE | 2017-02-24 18:40 | Progress Note ---
Subjective General Patient feeling well today. No BM. Denies pain. No chest pain or SOB. No nausea/vomitting or abd pain. Physical Exam Vital Signs / I&Os Vital Signs Date Time Temp Pulse Resp B/P Pulse O2 O2 Flow FiO2 Ox Delivery Rate 02/24 1806 36.7 64 20 154/64 95 Room Air 02/24 1547 36.8 58 20 142/68 97 02/24 1547 36.8 58 20 142/68 97 02/24 1455 36.6 64 20 125/65 100 Room Air 0.0 02/24 1445 36.6 64 20 125/65 100 02/24 1345 36.7 63 122/57 97 Room Air 0.0 02/24 1315 63 20 126/75 98 Room Air 0.0 02/24 1245 36.7 62 20 119/58 99 Room Air 0.0 02/24 1238 36.6 64 20 125/64 99 Room Air 0.0 02/24 0954 36.5 66 20 91/44 97 Room Air 0.0 02/24 0703 36.9 62 23 122/62 96 Room Air 0.0 02/24 0212 36.7 02/24 0207 63 16 96/40 94 02/23 2346 Room Air 0.0 02/23 2222 36.7 66 16 102/56 98 Room Air 02/23 1845 36.7 66 20 108/61 100 I&O 02/24 0000 02/23 1600 02/23 0800 Intake Total 775 1040 1480 Output Total 1500 450 725 Balance -725 590 755 General Appearance Alert, Cooperative, No acute distress Lungs Clear to auscultation, Normal air movement Cardiovascular Regular rate and rhythm, Normal S1 and S2, 2/6 systolic murmur increased at the base with snap. Abdomen Normal bowel sounds, Soft, No tenderness Extremities No edema Assessment and Plan Problem List 1. BPH (benign prostatic hypertrophy) with urinary retention Plan Failed voidin trial yesterday. Will keep abbasi for 1 week. Started on flomax. 2. Bone lesion Plan Bone scan wnl. No further evaluation indicated. 3. Dementia Plan Worsening. discussed future planning with family. Family conference again today. 4. GI bleed Plan 2/2 supratherapeutic INR. On heparin and coumadin currently. No S/s of bleeding currently. 5. Severe anemia Plan Slightly lower. received 1 unit pRBC today.
[2017-02-25] VITALS (13 sets, daily range): BP systolic 81–122; BP diastolic 45–80
--- NOTE | 2017-02-25 10:58 | Progress Note ---
Subjective General Patient feels ok this am. No BM since admit. No nausea, vomitting, diarrhea, or constipation. Dizziness with standing. No abd pain. No chest pain or SOB. Physical Exam Vital Signs / I&Os Vital Signs Date Time Temp Pulse Resp B/P Pulse O2 O2 Flow FiO2 Ox Delivery Rate 02/25 0926 76 20 104/70 98 Room Air 0.0 02/25 0921 67 16 88/45 02/25 0800 73 114/64 02/25 0745 69 109/70 02/25 0741 68 118/71 02/25 0739 66 20 81/46 97 Room Air 0.0 02/25 0644 61 20 122/58 97 Room Air 0.0 02/25 0458 36.6 63 18 114/59 97 Room Air 02/24 2216 36.7 64 18 106/57 96 Room Air 02/24 1806 36.7 64 20 154/64 95 Room Air 02/24 1547 36.8 58 20 142/68 97 02/24 1547 36.8 58 20 142/68 97 02/24 1455 36.6 64 20 125/65 100 Room Air 0.0 02/24 1445 36.6 64 20 125/65 100 02/24 1345 36.7 63 122/57 97 Room Air 0.0 02/24 1315 63 20 126/75 98 Room Air 0.0 02/24 1245 36.7 62 20 119/58 99 Room Air 0.0 02/24 1238 36.6 64 20 125/64 99 Room Air 0.0 I&O 02/25 0000 02/24 1600 02/24 0800 Intake Total 1469 910 657 Output Total 8873 589 3607 Balance 469 110 -693 General Appearance Alert, Cooperative, No acute distress Lungs Clear to auscultation, Normal air movement Cardiovascular Regular rate and rhythm, Normal S1 and S2, 2/6 systolic murmurs increased at the base. Abdomen Normal bowel sounds, Soft, No tenderness Extremities No edema Assessment and Plan Problem List 1. GI bleed Plan Resolved. continuing to monitor closely. 2. Severe anemia Plan s/p pRBC's. 3. HIGH INR Plan resolved, restarted on coumadin. 4. Mechanical heart valve present Plan Restarting coumadin. 5. Dementia Plan Stable on meds. 6. 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 Stopped. 7. Orthostatic hypotension Plan Possibly 2/2 flomax. Stopped flomax. REcheck in am. 8. Constipation Plan Advancing bowel protocol.
[2017-02-26] VITALS (11 sets, daily range): BP systolic 86–133; BP diastolic 47–81
--- NOTE | 2017-02-26 10:07 | Progress Note ---
Subjective General No BM since admit. NO nausea, vomitting, diarrhea, abd pain. No chest pain or SOB. Physical Exam Vital Signs / I&Os Vital Signs Date Time Temp Pulse Resp B/P Pulse O2 O2 Flow FiO2 Ox Delivery Rate 02/26 0949 70 114/62 02/26 0947 71 102/81 96 02/26 0941 18 106/57 02/26 0800 Room Air 0.0 02/26 0649 36.9 61 18 133/58 95 02/26 0207 36.9 62 18 114/50 95 Room Air 02/25 2227 36.8 59 18 114/60 95 Room Air 02/25 1920 Room Air 02/25 1826 37.1 66 22 101/60 98 Room Air 02/25 1343 62 24 111/80 95 02/25 1334 36.5 66 20 94/50 97 Room Air 0.0 I&O 02/26 0000 02/25 1600 02/25 0800 Intake Total 744 970 485 Output Total 1300 1275 1200 Balance -556 305 -715 General Appearance Alert, Cooperative, No acute distress Lungs Clear to auscultation, Normal air movement Cardiovascular Regular rate and rhythm, Normal S1 and S2, 2/6 systolic murmur increased at the base. Abdomen Normal bowel sounds, Soft, No tenderness Extremities No edema Assessment and Plan Problem List 1. GI bleed Plan Asymptomatic. 2. Severe anemia Plan s/p pRBC's. 3. Orthostatic hypotension Plan Will repeat orthostatic Bp's off flomax. 4. 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 flomax causing orthostatic hypotension. 5. Constipation Plan Mag citrate and enema. Will plan to discharge later today if he has a bowel movement. 6. Dementia Plan Stable. on meds.
[2017-02-27] VITALS (8 sets, daily range): BP systolic 81–131; BP diastolic 49–96
[2017-02-27] MEDS ORDERED: TAMSULOSIN HCL0.4 MG PO (17:55)
[2017-02-27] MEDS ORDERED: FERROUS SULFATE PO (17:56)
[2017-02-27] MEDS ORDERED: WARFARIN SODIUM10 MG PO (17:57)
[2017-02-27] MEDS ORDERED: DOCUSATE SODIU100 MG PO (18:04)
[2017-02-27] MEDS ORDERED: SENNA-LAX8.6 MG PO (18:04)
[2017-02-27] MEDS ORDERED: PEG 3351 PO (18:05)
[2017-02-27] MEDS ORDERED: PATIENT'S OWN MEDICA PO (18:05)
[2017-02-27] MEDS ORDERED: PANTOPRAZOLE SO40 MG PO (18:07)
--- NOTE | 2017-02-28 00:44 | DISCHARGE SUMMARY ---
ADMIT DATE: 02/21/2017 DISCHARGE DATE: 02/27/2017 ADMITTING DIAGNOSES: Include: 1. Gastrointestinal bleed 2. Supratherapeutic INR 3. Dementia DISCHARGE DIAGNOSES: Include: 1. Gastrointestinal bleed due to supratherapeutic INR, resolved 2. Severe anemia, status post multiple units of blood transfusions, improved 3. Orthostatic hypotension, not caused by Flomax 4. Benign prostatic hypertrophy with urinary retention. Flomax started and with chronic indwelling Medina for the next week 5. Constipation, improved 6. Dementia 7. Benign prostatic hypertrophy with urinary retention BRIEF HISTORY: This is an 87-year-old male who was at home and having had a couple of dark stools. He is a very poor historian and the information provided by the patient has convoluted and does not seem accurate. However, patient reports that for the past few weeks he has been noticing that he had occasional bouts of very dark stools. He went to his primary MD for this problem and the patient was asked to take a blood test. The patient had the blood test done and was asked to go to the emergency department. The patient came to the emergency department, but did not recall what value was needed and was subsequently discharged home. The patient returned again today unsure to as what prompted him to arrive; however, he was found to be anemic with a very elevated INR. The patient reports that he has not had any dark stools recently, however, he is feeling weaker than usual. Lastly, patient was seen to have extensive ecchymosis on his belly. The patient claims that he was taking Lovenox shots recently on top of Coumadin. He is not sure to as who told him to begin Lovenox injections. The patient's abdomen has extensive ecchymosis, but no evidence of hematoma. HOSPITAL COURSE: The patient was admitted to the hospital with a supratherapeutic INR. This very quickly resolved and he received multiple units of blood. His gastrointestinal bleed was determined to be resolved and he was restarted initially on a heparin drip and then later transferred to [facility] and his Coumadin was restarted. The patient was almost ready to be discharged when it was realized the patient had not had a bowel movement since admission and it took 3 days to get him to have a bowel movement. The patient also had a voiding trial while an inpatient and failed it and, therefore, His Medina has been replaced and will remain in for a week while Flomax is started. PHYSICAL EXAMINATION: At the time of discharge: VITAL SIGNS: Stable. GENERAL: This is a well-appearing elderly, confused gentleman sitting in a chair , no apparent distress. HEENT: Head is atraumatic, normocephalic. LUNGS: Clear to auscultation bilaterally. HEART: S1, S2, regular rate and rhythm. No S3, S4, gallops, or rubs. There is a 2/6 systolic murmur increased at the base with a snap, no peripheral edema. ABDOMEN: Soft, nontender, nondistended without hepatosplenomegaly or masses. Bowel sounds are active. DISCHARGE INSTRUCTIONS/MEDICATIONS: Discharge plan: The patient was discharged to home with the instructions to follow up with his primary care provider in 3-5 days, with a home health care PT/INR in 2 days. I have also asked home health care to do medication management for this patient. We have done extensive warfarin teaching with the patient and the family. I am very concerned that this patient is no longer able to take care of himself and had advised the family to look into 24-hour care. Diet: Coumadin diet. Activity: Up ad josé. Medications: Flomax 0.4 mg p.o. at bedtime, ferrous sulfate 325 mg p.o. b.i.d., docusate 100 mg p.o. b.i.d., polyethylene glycol 17 g p.o. daily p.r.n. constipation, senna 8.6 mg p.o. b.i.d., pantoprazole 40 mg p.o. b.i.d., melatonin 3-10 mg p.o. at bedtime, Aricept 5 mg p.o. daily, Lovenox 80 mg subcutaneous b.i.d. until Coumadin is in range 2.5-3.5, Namenda 10 mg p.o. b.i.d., warfarin 12 mg p.o. daily.
== END 2017-02-27 20:15 | disposition home health service (06) | DRG 918 ==
LOC: ED SRH 22:14 → TRANS SRH 02-21 01:52 → CC SRH 02-21 01:52
PROVIDERS: ADMIT Internal Medicine
PROC: 30233N1 Transfusion of Nonautologous Red Blood Cells into Peripheral Vein, Percutaneous Approach (ICD-10-PCS; principal; 2017-02-21)
PROC: 30233N1 Transfusion of Nonautologous Red Blood Cells into Peripheral Vein, Percutaneous Approach (ICD-10-PCS; 2017-02-24)
DX: T45.511A Poisoning by anticoagulants, accidental (unintentional), initial encounter (principal); K92.1 Melena; D50.0 Iron deficiency anemia secondary to blood loss (chronic); N40.1 Benign prostatic hyperplasia with lower urinary tract symptoms; R33.8 Other retention of urine; I95.1 Orthostatic hypotension; K59.00 Constipation, unspecified; R94.8 Abnormal results of function studies of other organs and systems; Z79.01 Long term (current) use of anticoagulants; Z95.2 Presence of prosthetic heart valve

== ENCOUNTER 2017-03-03 15:55 | Outpatient (CLI) | payer OTHER, MEDICARE ==
[~2017-03-03 15:55] MED LIST: ARICEPT5 MG PO; DOCUSATE SODIU100 MG PO; FERROUS SULFATE PO; LOVENOX100 MG/ML SC; NAMENDA10 MG PO; PANTOPRAZOLE SO40 MG PO; PATIENT'S OWN MEDICA PO; PEG 3351 PO; SENNA-LAX8.6 MG PO; TAMSULOSIN HCL0.4 MG PO; WARFARIN SODIUM10 MG PO
--- NOTE | 2017-03-03 20:09 | DIAGNOSTIC IMAGING REPORT ---
PROCEDURE: US KIDNEY/RENAL LIMITED INDICATION: URINARY RETENTION TECHNIQUE: Manuel scale images of the urinary bladder and limited manuel scale images of both kidneys. COMPARISON: CT abdomen pelvis 02/21/2017 FINDINGS: The urinary bladder is distended with debris filled urine. The margins demonstrate diffuse heavy trabeculation. Large bladder diverticula are visible. No focal bladder mass able to be seen. Prostate gland appears moderately enlarged. The visible portion measures at least 4.6 cm by 4.9 cm. Volume is 609 ml. The patient was unable to void. Limited imaging of the kidneys demonstrates no hydronephrosis or perinephric fluid. IMPRESSION: 1. Urinary volume of 609 ml. 2. 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 3. No evidence of hydronephrosis. 4. Prostatomegaly. 5. Discussed with Dr. Stein.
== END 2017-03-03 23:00 ==
LOC: US SRH 15:55
DX: N32.3 Diverticulum of bladder (principal); N32.89 Other specified disorders of bladder; N40.0 Benign prostatic hyperplasia without lower urinary tract symptoms

== ENCOUNTER 2017-03-04 07:37 | Observation (INO) | payer OTHER, MEDICARE ==
[~2017-03-04] VITALS: Ht 180.3 cm; Wt 80.2 kg
--- NOTE | 2017-03-04 09:59 | ED CLINICAL REPORT ---
Clinical Report - Physicians/Mid Levels [facility] [address] [place] [address] 03/04/2017 7:38 Patient: SLY MUSTAFA Time Seen: 07:44 Mar 04 2017. Arrived- By private vehicle. Historian- patient. CPT: ER phys charges level 5 plus (#[id number]). EKG interpretation (#[id number]). HISTORY OF PRESENT ILLNESS Chief Complaint: HEMATURIA. This started today . ( Pt. recently d/c from [facility] yesterday for anemia and "internal bleeding". He had a new Abbasi placed yesterday at Dr. Dasilva office without difficulty and no pain but he woke today around 0400 with bright red blood in his cath. He said his cath has had "a little blood in it" but nothing like today and he is concerned because now he is very weak and having SOB.). and is still present. The problem is described as moderate. The patient has had discomfort with urination. He has had Abbasi catheter problems, with bloody urine noted. Catheter has been blocked. Sexual history is noncontributory. Similar symptoms previously: None. Recent medical care: The patient was seen recently at this facility and hospitalized. REVIEW OF SYSTEMS No fever, chills, flank pain or abdominal pain or pain. No vomiting, diarrhea, black stools or bloody stools or stools. No sore throat or throat, chest pain, difficulty breathing or cough. No joint pain, skin rash, back pain, epistaxis or diabetic symptoms. No easy bruising. The patient has had hematuria and hematuria. The patient has had black stools. All systems otherwise negative, except as recorded above. PAST HISTORY Urinary retention. Has Abbasi catheter. ( Anemia. Dyspnea. Rectal Prolapse. Dimentia . Cardiac Procedures. - ADDITIONAL SURGERIES: Cardiac valve replacement . Hernia Repair. Pacemaker.). Medications: Stomach Relief Oral. Prostate medication in PM. Warfarin Sodium Oral 13mg daily. Aricept Oral (Tablet 5 mg), daily. Lovenox Subcutaneous, 2x a day. Namenda Oral 10 mg, 2x a day. Allergies: No Known Drug Allergy. SOCIAL HISTORY Never smoker. No alcohol use or drug use. ADDITIONAL NOTES The nursing notes have been reviewed. PHYSICAL EXAM Vital Signs: 03/04/2017 07:46 BP: 106/52. HR: 76. RR: 40. O2 saturation: 94%. Temp: 98.0 F. Appearance: Alert. No acute distress. Eyes: Mildly pale conjunctivae. ENT: Pharynx normal. Neck: Neck supple. CVS: Heart sounds normal. Respiratory: No respiratory distress. Breath sounds normal. Abdomen: Soft and nontender. Back: Normal external inspection. No CVA tenderness. : Abbasi catheter returning bloody urine. Rectal: Strongly heme-positive stool; blood present in the stool; stools are dark colored; hemoccult quality assurance consultant check passed. (POC test reference range: negative). Skin: Skin warm. No rash. Pallor. Extremities: Extremities exhibit normal ROM. No lower extremity edema. Neuro: No motor deficit. No sensory deficit. LABS, X-RAYS, AND EKG EKG: Paced rhythm. EKG unchanged when compared with prior EKG. The study has been interpreted contemporaneously. The study has been independently viewed by me. The EKG appears to be a good tracing. Chest X-ray: Normal Chest X-Ray. Laboratory Tests: UA-Culture if indicated: (CYNTHIA: 03/04/2017 08:15) ( MsgRcvd 03/04/2017 08:28) Final results Test Result Flag Units (Reference) URINE COLOR RED URINE APPEARANCE CLOUDY URINE GLUCOSE NEGATIVE (NEGATIVE) URINE BILIRUBIN NEGATIVE (NEGATIVE) URINE KETONE NEGATIVE (NEGATIVE) URINE SPECIFIC GRAVITY 1.020 (1.010-1.030) URINE PH 7.5 (5.0-8.0) URINE PROTEIN 3+ (NEGATIVE) URINE UROBILINOGEN 0.2 EU/dL (0.2-1.0) URINE NITRITE NEGATIVE (NEGATIVE) URINE BLOOD 3+ (NEGATIVE) URINE LEUK ESTERASE NEGATIVE (NEGATIVE) URINE RBC >100 rbc/hpf (0-1) URINE WBC 1-3 wbc/hpf (0-1) URINE EPITHELIAL CELLS NONE SEEN EPI/hpf (0-5) URINE BACTERIA NONE SEEN (NONE SEEN) URINE COMMENT CULT NOT INDICATED URINE CULTURES ARE SET-UP BASED ON THE FOLLOWING CRITERIA:POSITIVE NITRITEPOSITIVE LEUKOCYTE ESTERASEGREATER THAN 10 WHITE BLOOD CELLSMODERATE (2+) OR GREATER BACTERIA CBC w Diff: (CYNTHIA: 03/04/2017 08:05) ( MsgRcvd 03/04/2017 08:23) Final results Test Result Flag Units (Reference) WHITE BLOOD COUNT 4.4 L K/uL (4.5-11.5) RED BLOOD COUNT 3.15 L M/uL (4.50-5.90) HEMOGLOBIN 9.7 L gm/dL (13.5-17.5) HEMATOCRIT 29.4 L % (41.0-53.0) MEAN CELL VOLUME 93 fL (80-100) MEAN CORPUSCULAR HGB 31 pg (26-34) MEAN CORPUSCULAR HGB CONC 33 g/dL (31-37) RED CELL DISTRIBUTION WIDTH 16.6 H % (11.6-14.8) PLATELET COUNT 205 K/uL (150-400) NEUTROPHIL % 77.1 H % (50-75) LYMPH % 9.7 L % (25-40) MONO % 8.1 % (3-14) EOSINOPHIL % 4.5 H % (0-4) BASOPHIL % 0.6 % (0-2) PT with INR: (CYNTHIA: 03/04/2017 08:05) ( MsgRcvd 03/04/2017 08:28) Final results Test Result Flag Units (Reference) INR 1.6 H (0.8-1.2) Low Intensity Therapy: INR 1.5-2.0 PT range 18.5-23.1Mod.Intensity Therapy: INR 2.0-3.0 PT range 23.1-31.5High Intensity Therapy: INR 2.5-3.5 PT range 27.4-35.5High Intensity Therapy 2: INR 3.0-4.0 PT range 31.5-39.3 APTT 37 H SECONDS (24-34) . PROGRESS AND PROCEDURES Course of Care: Pt recently discharged after what appeared to be a GI bleed from a high INR. HCT was in the 19 range and he was transfused with 3 units PRBC. Pt was discharged with abbasi due to BPH and developed blood in the bag. Abbasi was changed yesterday in Dr Stein's office. This morning the abbasi was blocked and created abdominal pain. It finally let loose and blood came out of the catheter along with urine which resolved the pain. The blood, though, was worse than yesterdays. Pt is still on anticoagulation. IV NS NC 02 Pt is guaiac positive , weak and SOB. PT needs observation and serial HCT as he may have an acute bleed again as he is still on anticoagulation. Discussed case with on-call health care provider, (Tristen). Reviewed test results. Agreed upon treatment plan and decision to admit. Patient/family counseled. Old medical records ordered. Disposition orders written. Disposition: Admitted to Acute Care. CLINICAL IMPRESSION GI bleeding Urinary bleeding Anticoagulation Dyspnea. Weakness. (Electronically signed by Harpreet Polk MD 03/04/2017 23:21) Addenda for SLY MUSTAFA VisitID: [id number] Date: 03/04/2017 03/04/2017 8:37 Stool was strongly guaiac positive on rectal exam. (Electronically signed by Harpreet Polk MD - 03/04/2017 8:37)
--- NOTE | 2017-03-04 09:59 | ED ORDER SUMMARY ---
..... Patient: SLY MUSTAFA OrderSheet [facility] VisitID: [id number] [address] [place] [address] 87y, M Registration Date/Time: 03/04/2017 ORDER SHEET Weight: 79.3 kg (stated) Allergies: No Known Drug Allergy GENERAL ORDERS: UA-Culture if indicated Urgent (07:44 03/04/2017 David MENG) (Ack 7:51 Marli) (8:16 SReitz R.N.) Cardiac Panel Stat (08:03/04/2017 David MENG) (Ack 8:18 Maruga) (8:39 SReitz R.N.) Cathead Operator (Continuous) (08:03/04/2017 David MENG) (8:10 SReitz R.N.) Chest 1V Urgent (08:03/04/2017 David MENG) (Ack 8:18 Marli) (10:35 SReitz R.N.) PT with INR Urgent (08:03/04/2017 David MENG) (Ack 8:18 Marli) (8:39 SReitz R.N.) PTT Urgent (08:03/04/2017 David MENG) (Ack 8:18 Marli) (8:39 SReitz R.N.) Pulse oximeter (08:03/04/2017 David MENG) (8:10 SReitz R.N.) EKG - ER Stat (08:03/04/2017 David MENG) (8:10 SReitz R.N.) Oxygen (2 L/min) (NC) (08:03/04/2017 David MENG) (8:10 SReitz R.N.) Old Records (d/c summary from 4-24 admit at this hospital.) (08:03/04/2017 David MENG) (Ack 8:18 Marli) (10:35 SReitz R.N.) MEDICATION ORDERS: IV FLUIDS: IV NS : initial bolus none -, then 150 mL/hr for 4h (NOW); Routine (08:03/04/2017 David MENG) (Ack 8:14 Kvng Villalba) (8:17 Luis Villalba) ORDER SHEET NOTES: [Electronically signed by Margo Hood R.N. (03/04/2017)] [Electronically signed by Harpreet Polk MD (23:21 03/04/2017)] [Electronically locked/signed by Margo Hood R.N. (03/04/2017)]
--- NOTE | 2017-03-04 09:59 | ED ORDER SUMMARY ---
..... Patient: SLY MUSTAFA OrderSheet [facility] VisitID: [id number] [address] [place] [address] 87y, M Registration Date/Time: 03/04/2017 ORDER SHEET Weight: 79.3 kg (stated) Allergies: No Known Drug Allergy GENERAL ORDERS: UA-Culture if indicated Urgent (07:44 03/04/2017 David MENG) (Ack 7:51 Marli) (8:16 SReitz R.N.) Cardiac Panel Stat (08:03/04/2017 David MENG) (Ack 8:18 Maruga) (8:39 SReitz R.N.) Pipe Caulker (Continuous) (08:03/04/2017 David MENG) (8:10 SReitz R.N.) Chest 1V Urgent (08:03/04/2017 David MENG) (Ack 8:18 Marli) (10:35 SReitz R.N.) PT with INR Urgent (08:03/04/2017 David MENG) (Ack 8:18 aMrli) (8:39 SReitz R.N.) PTT Urgent (08:03/04/2017 David MENG) (Ack 8:18 Marli) (8:39 SReitz R.N.) Pulse oximeter (08:03/04/2017 David MENG) (8:10 SReitz R.N.) EKG - ER Stat (08:03/04/2017 David MENG) (8:10 SReitz R.N.) Oxygen (2 L/min) (NC) (08:03/04/2017 David MENG) (8:10 SReitz R.N.) Old Records (d/c summary from 4-24 admit at this hospital.) (08:03/04/2017 David MENG) (Ack 8:18 Marli) (10:35 SReitz R.N.) MEDICATION ORDERS: IV FLUIDS: IV NS : initial bolus none -, then 150 mL/hr for 4h (NOW); Routine (08:03/04/2017 David MENG) (Ack 8:14 Kvng Villalba) (8:17 Luis Villalba) ORDER SHEET NOTES: [Electronically signed by Margo Hood R.N. (03/04/2017)] [Electronically signed by Harpreet Polk MD (23:21 03/04/2017)] [Electronically locked/signed by Margo Hood R.N. (03/04/2017)]
--- NOTE | 2017-03-04 09:59 | ED NURSING NOTES ---
Clinical Report - Nurses [facility] [address] [place] [address] 03/04/2017 7:38 Patient: SLY MUSTAFA TRIAGE Triage time 07:53. Acuity: LEVEL 3. Chief Complaint: GASTELUM PROBLEM and (bright red blood draining and clots.). Alert. No acute distress. ( Pt. recently d/c from [facility] yesterday for anemia and "internal bleeding". He had a new Gastelum placed yesterday at Dr. Dasilva office without difficulty and no pain but he woke today around 0400 with bright red blood in his cath. He said his cath has had "a little blood in it" but nothing like today and he is concerned because now he is very weak and having SOB. His IRN yesterday was 1.5.). SEPSIS SCREEN: Sepsis Screen. Negative (no infection suspected/documented). DANIELA COMA SCORE: [place] Coma Scale: 15- eyes open spontaneously (4); best verbal response- oriented x 4 (5); best motor response- obeys commands (6). --08:09 Margo Hood R.N. 07:46 03/04/17. BP: 106/52. HR: 76. RR: 40. O2 saturation: 94%. Temp: 98.0 F. Pain level now 0/10. --08:09 Margo Hood R.N. ( correction to prior charting INR: 1.5). --11:09 Margo Hood R.N. Weight: 79.3 kg stated. Height/Length: 71 inches Per Patient. BMI: 24.4. --07:54 Margo Hood R.N. Medications Aricept Oral (Tablet 5 mg), daily. Lovenox Subcutaneous, 2x a day. Namenda Oral 10 mg, 2x a day. --08:03 Margo Hood R.N. Warfarin Sodium Oral 13mg daily. --08:04 Margo Hood R.N. Prostate medication in PM. --08:04 Margo Hood R.N. Stomach Relief Oral. --08:05 Margo Hood R.N. Allergies No Known Drug Allergy. --08:03 Margo Hood R.N. History Arrived by private vehicle. Historian: patient. Accompanied by family. Primary physician (Dr. Stein). This started yesterday. Onset. (around 0400). Treatment MACHINE OPERATOR: None. PAST MEDICAL HX: Immunizations: status is unknown. SOCIAL HX: Never smoker. No alcohol use or drug use. ABUSE ASSESSMENT: Abuse assessment: The patient was asked "Do you feel safe in your home?" and "Has anyone hurt you or threatened to hurt you?". No report of abuse. NUTRITIONAL RISK ASSESSMENT: The nutritional risk assessment revealed no deficiencies. FUNCTIONAL ASSESSMENT: Functional assessment: no impairments noted. LEARNING NEEDS ASSESSMENT: The learning needs assessment revealed no barriers. --08:09 Margo Hood R.N. FALL RISK ASSESSMENT: Fall risk assessment completed per protocol. Risk factors identified include postural hypotension, dizziness and patient medications and age greater than 65 years. Fall interventions initiated. Patient placed on stretcher. Side rails up x2. Brakes on Bed in low position. Patient visible from nurses' station and identified as a fall risk by ID band. Family at bedside. Child being held by parent. Call light in reach of patient. Instructed not to get up without assistance; 07:46. --10:39 Margo Hood R.N. PROBLEMS: Anemia. Dyspnea. Rectal Prolapse. Cardiac Procedures. --08:05 Margo Hood R.N. ADDITIONAL SURGERIES: Cardiac valve replacement . Hernia Repair. Pacemaker. --08:05 Margo Hood R.N. Interventions ID band on patient. Ambulatory. --08:09 Margo Hood R.N. PHYSICAL ASSESSMENT Ambulatory to room. GENERAL / NEURO / PSYCH: Alert. Oriented X 4. Appears in no acute distress. RESPIRATORY: Mild respiratory distress. Respirations not labored. CVS: Capillary refill is greater than 3 seconds. GI / : Abdomen soft. Abdominal tenderness in the lower abdomen. SKIN: Skin is pale. Skin is cool. --08:06 Margo Hood R.N. NURSING PROGRESS NOTES Pulse oximeter placed on patient; reversal print inspector- Lead II; monitor alarms on. Patient gowned. Head of bed elevated. Two patient identifiers checked. Call light placed in reach. Side rails up x 2. Bed placed in lowest position. Brakes of bed on. Patient ready for evaluation- chart flagged. --08:07 Margo Hood R.N. 08:07 03/04/2017 Site #1 started via IV in the left antecubital space with an 20g angiocath, with aseptic technique and good blood return; one attempt. Blood drawn: rainbow set. Labeled in the presence of the patient and sent to the lab. Saline lock flushed with 10 mL saline (accessed by Octavia Pena RN). --08:07 Margo Hood R.N. EKG time: (804). EKG was ordered, performed by a tech and shown to the ED physician. --08:08 Margo Hood R.N. 08:17 03/04/2017 Started bag #1 1000 mL IV Fluids IV NS (Saline); at 150 mL/hr over 4 hour(s) via site #1 via IV pump. Allergies verified and confirmed 5 rights. IV patency established. IV site checked: no pain, redness, or swelling. IV flushed thoroughly pre- and post-medication administration. --08:17 Margo Hood R.N. Patient ID band checked for patient name, birthdate and medical record number: patient confirmed urine collected; sample sent to lab for urinalysis. Specimen labeled in the presence of the patient (from cath: present on arrival to ED 50cc of ivky blood noted in leg bag.). --08:22 Margo Hood R.N. ( Patient's last discharge summary was retrieved from medical records for ER doctor to review). --08:38 Kasandra Fields 08:46 03/04/17. BP: 96/49. HR: 67. RR: 18. O2 saturation: 99%. Pain level now 0/10. --08:46 Margo Hood R.N. Patient and family informed about reason for wait and about plan of care. --08:46 Margo Hood R.N. 10:37 03/04/17. BP: 135/61. HR: 62. RR: 12. O2 saturation: 96%. --10:38 Margo Hood R.N. ( urine leg bag change to urine meter. Bladder/gastelum irrigated with 100cc NS: 318mls of viky blood drained.). --11:13 Margo Hood R.N. ( attempt to call report. AC RN to call back). --11:13 Margo Hood R.N. 11:13 03/04/17. BP: 128/61. HR: 61. RR: 15. O2 saturation: 100%. --11:14 Margo Hood R.N. ( attempt to call report. AC RN to call back.). --11:37 Margo Hood R.N. 12:15 03/04/2017 IV Fluids IV NS Continued: upon admission at the rate of 150 mL/hr. 400 mL remaining bag #1. IV patency established. IV site checked: no pain, redness, or swelling. IV flushed thoroughly. --12:15 Margo Hood R.N. Intake & Output IV fluids: 600 mL. Urine: 350 viky blood. --12:24 Margo Hood R.N. DISPOSITION / DISCHARGE 12:10 03/04/17. BP: 118/62. HR: 62. RR: 26. O2 saturation: 98% on nasal cannula at 2 liters/minute. --12:14 Margo Hood R.N. Admitted to Acute Care. Transported via stretcher by [facility] with IV and O2. Report was given to a nurse via a phone call. Report included patient's care, treatment, medications, reviewed medication reconcilliation, and condition (including any recent changes or anticipated changes). All questions were answered. Patient's personal items; items were placed in belongings bag, given to the patient and transported with the patient. --12:15 Margo Hood R.N. Medication list reviewed and validated. --12:15 Margo Hodo R.N. Departure time: 12:22. --12:22 Margo Hood R.N. Locked/Released at 03/04/2017 12:26 by Margo Hood R.N.
--- NOTE | 2017-03-04 09:59 | ED CLINICAL REPORT ---
Clinical Report - Physicians/Mid Levels [address] [place] [address] 03/04/2017 7:38 Patient: SLY MUSTAFA Time Seen: 07:44 Mar 04 2017. Arrived- By private vehicle. Historian- patient. CPT: ER phys charges level 5 plus (#[id number]). EKG interpretation (#[id number]). HISTORY OF PRESENT ILLNESS Chief Complaint: HEMATURIA. This started today . ( Pt. recently d/c from [facility] yesterday for anemia and "internal bleeding". He had a new Abbasi placed yesterday at Dr. Dasilva office without difficulty and no pain but he woke today around 0400 with bright red blood in his cath. He said his cath has had "a little blood in it" but nothing like today and he is concerned because now he is very weak and having SOB.). and is still present. The problem is described as moderate. The patient has had discomfort with urination. He has had Abbasi catheter problems, with bloody urine noted. Catheter has been blocked. Sexual history is noncontributory. Similar symptoms previously: None. Recent medical care: The patient was seen recently at this facility and hospitalized. REVIEW OF SYSTEMS No fever, chills, flank pain or abdominal pain or pain. No vomiting, diarrhea, black stools or bloody stools or stools. No sore throat or throat, chest pain, difficulty breathing or cough. No joint pain, skin rash, back pain, epistaxis or diabetic symptoms. No easy bruising. The patient has had hematuria and hematuria. The patient has had black stools. All systems otherwise negative, except as recorded above. PAST HISTORY Urinary retention. Has Abbasi catheter. ( Anemia. Dyspnea. Rectal Prolapse. Dimentia . Cardiac Procedures. - ADDITIONAL SURGERIES: Cardiac valve replacement . Hernia Repair. Pacemaker.). Medications: Stomach Relief Oral. Prostate medication in PM. Warfarin Sodium Oral 13mg daily. Aricept Oral (Tablet 5 mg), daily. Lovenox Subcutaneous, 2x a day. Namenda Oral 10 mg, 2x a day. Allergies: No Known Drug Allergy. SOCIAL HISTORY Never smoker. No alcohol use or drug use. ADDITIONAL NOTES The nursing notes have been reviewed. PHYSICAL EXAM Vital Signs: 03/04/2017 07:46 BP: 106/52. HR: 76. RR: 40. O2 saturation: 94%. Temp: 98.0 F. Appearance: Alert. No acute distress. Eyes: Mildly pale conjunctivae. ENT: Pharynx normal. Neck: Neck supple. CVS: Heart sounds normal. Respiratory: No respiratory distress. Breath sounds normal. Abdomen: Soft and nontender. Back: Normal external inspection. No CVA tenderness. : Abbasi catheter returning bloody urine. Rectal: Strongly heme-positive stool; blood present in the stool; stools are dark colored; hemoccult director quality systems check passed. (POC test reference range: negative). Skin: Skin warm. No rash. Pallor. Extremities: Extremities exhibit normal ROM. No lower extremity edema. Neuro: No motor deficit. No sensory deficit. LABS, X-RAYS, AND EKG EKG: Paced rhythm. EKG unchanged when compared with prior EKG. The study has been interpreted contemporaneously. The study has been independently viewed by me. The EKG appears to be a good tracing. Chest X-ray: Normal Chest X-Ray. Laboratory Tests: UA-Culture if indicated: (CYNTHIA: 03/04/2017 08:15) ( MsgRcvd 03/04/2017 08:28) Final results Test Result Flag Units (Reference) URINE COLOR RED URINE APPEARANCE CLOUDY URINE GLUCOSE NEGATIVE (NEGATIVE) URINE BILIRUBIN NEGATIVE (NEGATIVE) URINE KETONE NEGATIVE (NEGATIVE) URINE SPECIFIC GRAVITY 1.020 (1.010-1.030) URINE PH 7.5 (5.0-8.0) URINE PROTEIN 3+ (NEGATIVE) URINE UROBILINOGEN 0.2 EU/dL (0.2-1.0) URINE NITRITE NEGATIVE (NEGATIVE) URINE BLOOD 3+ (NEGATIVE) URINE LEUK ESTERASE NEGATIVE (NEGATIVE) URINE RBC >100 rbc/hpf (0-1) URINE WBC 1-3 wbc/hpf (0-1) URINE EPITHELIAL CELLS NONE SEEN EPI/hpf (0-5) URINE BACTERIA NONE SEEN (NONE SEEN) URINE COMMENT CULT NOT INDICATED URINE CULTURES ARE SET-UP BASED ON THE FOLLOWING CRITERIA:POSITIVE NITRITEPOSITIVE LEUKOCYTE ESTERASEGREATER THAN 10 WHITE BLOOD CELLSMODERATE (2+) OR GREATER BACTERIA CBC w Diff: (CYNTHIA: 03/04/2017 08:05) ( MsgRcvd 03/04/2017 08:23) Final results Test Result Flag Units (Reference) WHITE BLOOD COUNT 4.4 L K/uL (4.5-11.5) RED BLOOD COUNT 3.15 L M/uL (4.50-5.90) HEMOGLOBIN 9.7 L gm/dL (13.5-17.5) HEMATOCRIT 29.4 L % (41.0-53.0) MEAN CELL VOLUME 93 fL (80-100) MEAN CORPUSCULAR HGB 31 pg (26-34) MEAN CORPUSCULAR HGB CONC 33 g/dL (31-37) RED CELL DISTRIBUTION WIDTH 16.6 H % (11.6-14.8) PLATELET COUNT 205 K/uL (150-400) NEUTROPHIL % 77.1 H % (50-75) LYMPH % 9.7 L % (25-40) MONO % 8.1 % (3-14) EOSINOPHIL % 4.5 H % (0-4) BASOPHIL % 0.6 % (0-2) PT with INR: (CYNTHIA: 03/04/2017 08:05) ( MsgRcvd 03/04/2017 08:28) Final results Test Result Flag Units (Reference) INR 1.6 H (0.8-1.2) Low Intensity Therapy: INR 1.5-2.0 PT range 18.5-23.1Mod.Intensity Therapy: INR 2.0-3.0 PT range 23.1-31.5High Intensity Therapy: INR 2.5-3.5 PT range 27.4-35.5High Intensity Therapy 2: INR 3.0-4.0 PT range 31.5-39.3 APTT 37 H SECONDS (24-34) . PROGRESS AND PROCEDURES Course of Care: Pt recently discharged after what appeared to be a GI bleed from a high INR. HCT was in the 19 range and he was transfused with 3 units PRBC. Pt was discharged with abbasi due to BPH and developed blood in the bag. Abbasi was changed yesterday in Dr Stein's office. This morning the abbasi was blocked and created abdominal pain. It finally let loose and blood came out of the catheter along with urine which resolved the pain. The blood, though, was worse than yesterdays. Pt is still on anticoagulation. IV NS NC 02 Pt is guaiac positive , weak and SOB. PT needs observation and serial HCT as he may have an acute bleed again as he is still on anticoagulation. Discussed case with on-call health care provider, (Tristen). Reviewed test results. Agreed upon treatment plan and decision to admit. Patient/family counseled. Old medical records ordered. Disposition orders written. Disposition: Admitted to Acute Care. CLINICAL IMPRESSION GI bleeding Urinary bleeding Anticoagulation Dyspnea. Weakness. (Electronically signed by Harpreet Polk MD 03/04/2017 23:21) Addenda for SLY MUSTAFA VisitID: [id number] Date: 03/04/2017 03/04/2017 8:37 Stool was strongly guaiac positive on rectal exam. (Electronically signed by Harpreet Polk MD - 03/04/2017 8:37)
--- NOTE | 2017-03-04 09:59 | ED NURSING NOTES ---
Clinical Report - Nurses [facility] [address] [place] [address] 03/04/2017 7:38 Patient: SLY MUSTAFA TRIAGE Triage time 07:53. Acuity: LEVEL 3. Chief Complaint: GASTELUM PROBLEM and (bright red blood draining and clots.). Alert. No acute distress. ( Pt. recently d/c from [facility] yesterday for anemia and "internal bleeding". He had a new Gastelum placed yesterday at Dr. Dasilva office without difficulty and no pain but he woke today around 0400 with bright red blood in his cath. He said his cath has had "a little blood in it" but nothing like today and he is concerned because now he is very weak and having SOB. His IRN yesterday was 1.5.). SEPSIS SCREEN: Sepsis Screen. Negative (no infection suspected/documented). DANIELA COMA SCORE: [place] Coma Scale: 15- eyes open spontaneously (4); best verbal response- oriented x 4 (5); best motor response- obeys commands (6). --08:09 Margo Hood R.N. 07:46 03/04/17. BP: 106/52. HR: 76. RR: 40. O2 saturation: 94%. Temp: 98.0 F. Pain level now 0/10. --08:09 Margo Hood R.N. ( correction to prior charting INR: 1.5). --11:09 Margo Hood R.N. Weight: 79.3 kg stated. Height/Length: 71 inches Per Patient. BMI: 24.4. --07:54 Margo Hood R.N. Medications Aricept Oral (Tablet 5 mg), daily. Lovenox Subcutaneous, 2x a day. Namenda Oral 10 mg, 2x a day. --08:03 Margo Hood R.N. Warfarin Sodium Oral 13mg daily. --08:04 Margo Hood R.N. Prostate medication in PM. --08:04 Margo Hood R.N. Stomach Relief Oral. --08:05 Margo Hood R.N. Allergies No Known Drug Allergy. --08:03 Margo Hood R.N. History Arrived by private vehicle. Historian: patient. Accompanied by family. Primary physician (Dr. Stein). This started yesterday. Onset. (around 0400). 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 PAST MEDICAL HX: Immunizations: status is unknown. SOCIAL HX: Never smoker. No alcohol use or drug use. ABUSE ASSESSMENT: Abuse assessment: The patient was asked "Do you feel safe in your home?" and "Has anyone hurt you or threatened to hurt you?". No report of abuse. NUTRITIONAL RISK ASSESSMENT: The nutritional risk assessment revealed no deficiencies. FUNCTIONAL ASSESSMENT: Functional assessment: no impairments noted. LEARNING NEEDS ASSESSMENT: The learning needs assessment revealed no barriers. --08:09 Margo Hood R.N. FALL RISK ASSESSMENT: Fall risk assessment completed per protocol. Risk factors identified include postural hypotension, dizziness and patient medications and age greater than 65 years. Fall interventions initiated. Patient placed on stretcher. Side rails up x2. Brakes on Bed in low position. Patient visible from nurses' station and identified as a fall risk by ID band. Family at bedside. Child being held by parent. Call light in reach of patient. Instructed not to get up without assistance; 07:46. --10:39 Margo Hood R.N. PROBLEMS: Anemia. Dyspnea. Rectal Prolapse. Cardiac Procedures. --08:05 Margo Hood R.N. ADDITIONAL SURGERIES: Cardiac valve replacement . Hernia Repair. Pacemaker. --08:05 Margo Hood R.N. Interventions ID band on patient. Ambulatory. --08:09 Margo Hood R.N. PHYSICAL ASSESSMENT Ambulatory to room. GENERAL / NEURO / PSYCH: Alert. Oriented X 4. Appears in no acute distress. RESPIRATORY: Mild respiratory distress. Respirations not labored. CVS: Capillary refill is greater than 3 seconds. GI / : Abdomen soft. Abdominal tenderness in the lower abdomen. SKIN: Skin is pale. Skin is cool. --08:06 Margo Hood R.N. NURSING PROGRESS NOTES Pulse oximeter placed on patient; cardiac cath technologist- Lead II; monitor alarms on. Patient gowned. Head of bed elevated. Two patient identifiers checked. Call light placed in reach. Side rails up x 2. Bed placed in lowest position. Brakes of bed on. Patient ready for evaluation- chart flagged. --08:07 Margo Hood R.N. 08:07 03/04/2017 Site #1 started via IV in the left antecubital space with an 20g angiocath, with aseptic technique and good blood return; one attempt. Blood drawn: rainbow set. Labeled in the presence of the patient and sent to the lab. Saline lock flushed with 10 mL saline (accessed by Octavia Pena RN). --08:07 Margo Hood R.N. EKG time: (804). EKG was ordered, performed by a tech and shown to the ED physician. --08:08 Margo Hood R.N. 08:17 03/04/2017 Started bag #1 1000 mL IV Fluids IV NS (Saline); at 150 mL/hr over 4 hour(s) via site #1 via IV pump. Allergies verified and confirmed 5 rights. IV patency established. IV site checked: no pain, redness, or swelling. IV flushed thoroughly pre- and post-medication administration. --08:17 Margo Hood R.N. Patient ID band checked for patient name, birthdate and medical record number: patient confirmed urine collected; sample sent to lab for urinalysis. Specimen labeled in the presence of the patient (from cath: present on arrival to ED 50cc of viky blood noted in leg bag.). --08:22 Margo Hood R.N. ( Patient's last discharge summary was retrieved from medical records for ER doctor to review). --08:38 Kasandra Fields 08:46 03/04/17. BP: 96/49. HR: 67. RR: 18. O2 saturation: 99%. Pain level now 0/10. --08:46 Margo Hood R.N. Patient and family informed about reason for wait and about plan of care. --08:46 Margo Hood R.N. 10:37 03/04/17. BP: 135/61. HR: 62. RR: 12. O2 saturation: 96%. --10:38 Margo Hood R.N. ( urine leg bag change to urine meter. Bladder/gastelum irrigated with 100cc NS: 318mls of viky blood drained.). --11:13 Margo Hood R.N. ( attempt to call report. AC RN to call back). --11:13 Margo Hood R.N. 11:13 03/04/17. BP: 128/61. HR: 61. RR: 15. O2 saturation: 100%. --11:14 Margo Hood R.N. ( attempt to call report. AC RN to call back.). --11:37 Margo Hood R.N. 12:15 03/04/2017 IV Fluids IV NS Continued: upon admission at the rate of 150 mL/hr. 400 mL remaining bag #1. IV patency established. IV site checked: no pain, redness, or swelling. IV flushed thoroughly. --12:15 Margo Hood R.N. Intake & Output IV fluids: 600 mL. Urine: 350 viky blood. --12:24 Margo Hood R.N. DISPOSITION / DISCHARGE 12:10 03/04/17. BP: 118/62. HR: 62. RR: 26. O2 saturation: 98% on nasal cannula at 2 liters/minute. --12:14 Margo Hood R.N. Admitted to Acute Care. Transported via stretcher by [facility] with IV and O2. Report was given to a nurse via a phone call. Report included patient's care, treatment, medications, reviewed medication reconcilliation, and condition (including any recent changes or anticipated changes). All questions were answered. Patient's personal items; items were placed in belongings bag, given to the patient and transported with the patient. --12:15 Margo Hood R.N. Medication list reviewed and validated. --12:15 Margo Hood R.N. Departure time: 12:22. --12:22 Margo Hood R.N. Locked/Released at 03/04/2017 12:26 by Margo Hood R.N.
--- NOTE | 2017-03-04 10:05 | DIAGNOSTIC IMAGING REPORT ---
PROCEDURE: XR CHEST 1 VIEW INDICATION: SHORTNESS OF BREATH TECHNIQUE: Portable AP view 09:11 a.m. COMPARISON: Chest x-ray 02/18/2017 FINDINGS: Mild left basilar scarring. Stable left basilar mass. New small right infrahilar infiltrate. Median sternotomy, valvuloplasty and dual lead pacemaker. Heart size, mediastinum and prior vessels are normal. No suspicious osseous lesions. IMPRESSION: 1. New small right infrahilar infiltrate 2. Stable left basilar mass 3. Mild left basilar scarring 4. Valvuloplasty and pacemaker
--- NOTE | 2017-03-04 12:38 | Progress Note ---
Subjective General Admission History and Physical Examination Patient Name: Will Syed Admission Date: March 04, 2017 Primary Care Provider: Dr. Stein Attending Physician: Bruce Ramon M.D. Admitting Physician: Bruce Ramon M.D. Code Status: Full Code Room: Status: ACU; Observation SUBJECTIVE Historian: Patient and daughter Reliability: fair Chief Complaint: Cough, shortness of breath Blood in the urinary catheter History of Present Illness: The patient is a 87-year-old white female with a significant past medical history of recurrent pneumonia, hypercholesterolemia, hypertension, chronic pain , fibromyalgia, depression, migraine headache, polymyositis, who presented to [facility] emergency department on the day of admission with the above chief complaint. [facility] ER evaluation was consistent with recurrent hematuria and potential GI Bleed.. Secondary to the above, the patient was admitted by Bruce Ramon M.D. for further evaluation and treatment. Mister Syed reports that he's had bleeding in the catheter over the past 24- 48 hours. Patient reports that he wishes seen by his primary care physician who discharged him home from her clinic yesterday. Patient had catheter removed in the placed. Patient's hematocrit was stable at that time. Patient reports that he has been feeling relatively well but having shortness of breath over the past 24-48 hours now. Patient reports that he's had clots in his urinary catheter in and 1. time he had difficulty with passing urine from the catheter to the catch bag. Patient reports of seeing clots in the collecting back of the urinary catheter. Patient also reporting of dark tarry stools. Patient states that he' s been compliant with his medication. Patient reports that shortness of breathwith activity and not at rest. Patient states when he gets up and asked that he feels short of breath and not quite right. Patient was seen in the ED. Hematocrit was that the same level at discharge. PAST MEDICAL HISTORY Illnesses: BPH. Obstructive uropathy Dementia Mitral valve replacement. CHF SP pacemaker placement Constipation Prior gastric intestinal bleed Allergies: 1. No known drug allergies Medications: Flomax 0.4 mg p.o. at bedtime, ferrous sulfate 325 mg p.o. b.i.d., docusate 100 mg p.o. b.i.d., polyethylene glycol 17 g p.o. daily p.r.n. constipation, senna 8.6 mg p.o. b.i.d., pantoprazole 40 mg p.o. b.i.d., melatonin 3-10 mg p.o. at bedtime, Aricept 5 mg p.o. daily, Lovenox 80 mg subcutaneous b.i.d. until Coumadin is in range 2.5-3.5, Namenda 10 mg p.o. b.i.d., warfarin 12 mg p.o. daily. Surgery: Injuries: 1. No significant Hospitalizations: Hospitalization from 02/21/2017 to 02/27/2017. Patient was admitted for GI bleed FAMILY HISTORY Parents: 1. Father, , 88 Complication lung cancer 2. Mother, Theora, , at around 88, Siblings: Not asked Children: Daughter living in close proximity. Other significant family history: None SOCIAL HISTORY Patient lives at home. 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 HABITS 1. Tobacco: None 2. Drugs: None 3. Alcohol: None 4. Caffeine: None HEALTH SUPERVISION Item/Test 1. Vision screen: No recent 2. Cholesterol Profile: 2016 3. PSA: Not applicable 4. LIBRADO: Not applicable 5. FOBT: No recent 6. Blood Glucose: 2016 7. Colonoscopy: No previous 8. History and physical exam: No recent 9. Audiogram: No recent 10. Mammogram: 2016 08. Pap/pelvic exam: No recent IMMUNIZATIONS: 1. Pneumococcal: No known 2. Influenza: No previous 3. Tetanus: No previous ADVANCED DIRECTIVES: 1. Living well: No 2. POLST: No 3. Code Status: Full code 4. Durable Power [employer] Correspondent Health care: No 5. Donor card: No REVIEW OF SYSTEMS Remarkable for those things stated in the history of present illness and past medical history. Seventeen point review of system completed with the following notable findings: Constitutional Weakness. Denies: Chills, Sweats. Respiratory SOB w/exertion. Denies: Wheezing, Hemoptysis. Cardiovascular Denies: Orthopnea, PND. Gastrointestinal Constipation, Melena. Denies: Diarrhea. Genitourinary Hematuria. Skin Denies: Rash. Neurological Other (dementia). Physical Exam Vital Signs / I&Os Vital Signs Date Time Temp Pulse Resp B/P Pulse O2 O2 Flow FiO2 Ox Delivery Rate 03/04 1349 2.0 05/06 1245 97.9 67 16 128/56 100 Nasal 2.0 Cannula General Appearance Cooperative, No acute distress, dementia HEENT EOMI Lungs Clear to auscultation Neck Supple Cardiovascular Normal S1 and S2 Abdomen Soft, No tenderness Extremities No edema Skin No Rashes Neurological Reflexes 2+ and equal Psych/Mental Status dementia LAB Results Laboratory Tests 03/04 03/04 03/04 0805 0815 1305 Chemistry Plasma Sodium (136 - 145 mmol/L) 147 Plasma Potassium (3.5 - 5.1 mmol/L) 4.1 Plasma Chloride (98 - 107 mmol/L) 109 CO2 (Enzymatic) (21 - 32 mmol/L) 29 BUN (7 - 18 mg/dL) 16 Creatinine (0.6 - 1.3 mg/dL) 1.2 Est GFR ( Amer) (mL/min) >60 Est GFR (Non-Af Amer) (mL/min) >60 Glucose (70 - 110 mg/dL) 121 Plasma Calcium (8.5 - 10.1 mg/dL) 8.4 Plasma Magnesium (1.8 - 2.4 mg/dL) 2.0 Total Bilirubin (0.0 - 1.0 mg/dL) 0.8 AST (15 - 37 U/L) 26 ALT (12 - 78 U/L) 27 Alkaline Phosphatase (46 - 116 U/L) 59 Creatine Kinase (24 - 260 U/L) 79 Troponin (0.00 - 1.5 ng/mL) <0.05 Total Protein (6.4 - 8.2 g/dL) 6.0 Albumin (3.3 - 5.0 g/dL) 3.2 Coagulation INR (0.8 - 1.2) 1.6 APTT (24 - 34 SECONDS) 37 Hematology WBC (4.5 - 11.5 K/uL) 4.4 RBC (4.50 - 5.90 M/uL) 3.15 Hgb (13.5 - 17.5 gm/dL) 9.7 8.7 Hct (41.0 - 53.0 %) 29.4 26.7 MCV (80 - 100 fL) 93 MCH (26 - 34 pg) 31 RDW (11.6 - 14.8 %) 16.6 Neut % (Auto) (50 - 75 %) 77.1 Lymph % (Auto) (25 - 40 %) 9.7 [place] % (Auto) (3 - 14 %) 8.1 Eos % (Auto) (0 - 4 %) 4.5 Baso % (Auto) (0 - 2 %) 0.6 Plt Count, EDTA (150 - 400 K/uL) 205 PUBS MCHC (31 - 37 g/dL) 33 Urines Urine Color RED Urine Appearance CLOUDY Urine pH (5.0 - 8.0) 7.5 Ur Specific [place] (1.010 - 1.030) 1.020 Urine Protein (NEGATIVE) 3+ Urine Ketones (NEGATIVE) NEGATIVE Urine Blood (NEGATIVE) 3+ Urine Nitrite (NEGATIVE) NEGATIVE Urine Bilirubin (NEGATIVE) NEGATIVE Urine Urobilinogen (0.2 - 1.0 EU/dL) 0.2 Ur Leukocyte Esterase (NEGATIVE) NEGATIVE Urine RBC (0 - 1 rbc/hpf) >100 Urine WBC (0 - 1 wbc/hpf) 1-3 Ur Epithelial Cells (0 - 5 EPI/hpf) NONE SEEN Urine Bacteria (NONE SEEN) NONE SEEN Urine Glucose (NEGATIVE) NEGATIVE Urine Comment CULT NOT INDICATED Imaging 1. New small right infrahilar infiltrate 2. Stable left basilar mass 3. Mild left basilar scarring 4. Valvuloplasty and pacemaker Assessment and Plan Problem List 1. BPH (benign prostatic hypertrophy) with urinary retention Plan Subjective obstructive uropathy. Patient with the indwelling Medina catheter. Signs of hematuria. The back on examination was seen with blood. We'll plan to not replace Medina at this time. Plan to have a irrigation done on the bladder. Avoid manipulation of the catheter. Discussed seen urology as an outpatient. Monitor hematocrit overnight. Any drop of hematocrit below 7 Will transfuse. Holding the warfarin overnight. Continue with the Lovenox. 2. Constipation Plan Continue with a bowel regimen at home. Monitor stools. 3. Dyspnea Plan Dyspnea on exertion. Hematocrit overnight. Monitor patient's ability to move. 4. Hematuria Plan Seen with hematuria on this admission. Irrigation, holding warfarin continue with the Lovenox Urology as an outpatient. 5. Stool color black Plan Black stools. This is in the setting of a previous GI bleed. Patient without complete GI workup from discharge. Suggest that the patient be seen by GI. Holding the warfarin overnight Current status: Fair, unstable Anticipated discharge date: Anticipated discharge in 1-2 days Anticipated discharge placement: Home Patient care time: Time spent in chart review, patient interview, physical exam, CPOE, and care documentation: 70 minutes Visit to patient today: 1 Complexity of care: Moderate Initial patient evaluation: Emergency department GI prophylaxis: Protonix 40 mg IV daily DVT prophylaxis: Lovenox E&M Codes Admission: Obsv-Comp/High/[id number]
[2017-03-04 12:45] VITALS: BP 128/56
[2017-03-04 18:15] VITALS: BP 123/56
[2017-03-04 22:28] VITALS: BP 132/65
--- NOTE | 2017-03-04 23:21 | ED MED RECONCILIATION SUMMARY ---
Patient: SLY MUSTAFA Medication Reconciliation Report [facility] VisitID: [id number] [address] [place] [address] 87y, M Registration Date/Time: 03/04/2017 Weight: 79.3 kg Height/Length: 71 in. BMI: 24.4 ALLERGIES: No Known Drug Allergy The patient's Home Medications are listed below: THE FOLLOWING MEDICATIONS NEED TO BE RECONCILED: Aricept Oral (5 mg), daily Lovenox Subcutaneous, 2x a day Namenda Oral 10 mg, 2x a day Prostate medication in PM Stomach Relief Oral Warfarin Sodium Oral 13mg daily The source(s) of the original Home Medication information: Not obtained. The following Medications were given to the patient in the Emergency Department: IV NS IV Fluids bolus 0, then 150 mL/hr, administered: 03/04/2017 8:17:00 AM The following Medications were prescribed to the patient: None.
--- NOTE | 2017-03-04 23:21 | ED MAR SUMMARY ---
..... Medication Administration Record [facility] [address] [address] Patient: SLY MUSTAFA Visit ID: [id number] 87y, M Weight: 79.3 kg Height/Length: 71 in BMI: 24.4 ALLERGIES: No Known Drug Allergy Start 08:17 03/04/2017 Margo Hood R.N., Continued Upon Admission 12:15 03/04/2017 Margo Hood R.N. Medication Administered: IV NS (SALINE), Dose: IV Fluids over 4 hour(s), Rate: 150 mL/hr, Dispensed: 1000 mL bag, Site: #1 left AC. Medication Ordered: IV NS : initial bolus none -, then 150 mL/hr for 4h (NOW); Routine.
--- NOTE | 2017-03-04 23:21 | ED DISCHARGE INSTRUCTIONS ---
Patient: SLY MUSTAFA General Instructions [facility] VisitID: [id number] [address] [place] [address] 87y, M Registration Date/Time: 03/04/2017 GI bleeding Urinary bleeding Anticoagulation Dyspnea. Weakness. (Electronically signed by Harpreet Polk MD 03/04/2017 23:21)
--- NOTE | 2017-03-04 23:21 | ED DISCHARGE INSTRUCTIONS ---
Patient: SLY MUSTAFA General Instructions [facility] VisitID: [id number] [address] [place] [address] 87y, M Registration Date/Time: 03/04/2017 GI bleeding Urinary bleeding Anticoagulation Dyspnea. Weakness. (Electronically signed by Harpreet Polk MD 03/04/2017 23:21)
--- NOTE | 2017-03-04 23:21 | ED MED RECONCILIATION SUMMARY ---
Patient: SLY MUSTAFA Medication Reconciliation Report [facility] VisitID: [id number] [address] [place] [address] 87y, M Registration Date/Time: 03/04/2017 Weight: 79.3 kg Height/Length: 71 in. BMI: 24.4 ALLERGIES: No Known Drug Allergy The patient's Home Medications are listed below: THE FOLLOWING MEDICATIONS NEED TO BE RECONCILED: Aricept Oral (5 mg), daily Lovenox Subcutaneous, 2x a day Namenda Oral 10 mg, 2x a day Prostate medication in PM Stomach Relief Oral Warfarin Sodium Oral 13mg daily The source(s) of the original Home Medication information: Not obtained. The following Medications were given to the patient in the Emergency Department: IV NS IV Fluids bolus 0, then 150 mL/hr, administered: 03/04/2017 8:17:00 AM The following Medications were prescribed to the patient: None.
--- NOTE | 2017-03-04 23:21 | ED MAR SUMMARY ---
..... Medication Administration Record [facility] [address] [place] [address] Patient: SLY MUSTAFA Visit ID: [id number] 87y, M Weight: 79.3 kg Height/Length: 71 in BMI: 24.4 ALLERGIES: No Known Drug Allergy Start 08:17 03/04/2017 Margo Hood R.N., Continued Upon Admission 12:15 03/04/2017 Margo Hood R.N. Medication Administered: IV NS (SALINE), Dose: IV Fluids over 4 hour(s), Rate: 150 mL/hr, Dispensed: 1000 mL bag, Site: #1 left AC. Medication Ordered: IV NS : initial bolus none -, then 150 mL/hr for 4h (NOW); Routine.
[2017-03-05 02:52] VITALS: BP 147/64
[2017-03-05 06:40] VITALS: BP 131/60
--- NOTE | 2017-03-05 07:06 | Progress Note ---
Subjective General Note Date: 03/05/2017 Admission Date: 03/14/17 Hospital Day: 2 PCP: Beatrice Stein Status: No code Room: 206 87-year-old white female with a significant past medical history of recurrent pneumonia, hypercholesterolemia, hypertension, chronic pain, fibromyalgia, depression, migraine headache, polymyositis, who presented to [facility] emergency department on the day of admission with the above chief complaint. [facility] ER evaluation was consistent with recurrent hematuria and potential GI Bleed.. Secondary to the above, the patient was admitted by Bruce Ramon M.D. for further evaluation and treatment. Subjective: She was seen at bedside today. Patient has a Medina catheter in place. Urine is flowing to the catheter occasional clot is seen in the tube. Patient reports that the lower abdominal pain is resolving. He has good appetite. Patient is up and walking. Is ready to go home today. Patient requests: Go home. Physical Exam Vital Signs / I&Os Vital Signs Date Time Temp Pulse Resp B/P Pulse O2 O2 Flow FiO2 Ox Delivery Rate 03/05 0640 97.9 61 20 131/60 98 Room Air 03/05 0252 98.2 71 18 147/64 100 Room Air 0.0 / 0124 0.0 / 2228 98.2 56 18 132/65 95 Nasal 2.0 Cannula 05/ 2130 2.0 05/ 1834 97 05/06 1826 2.0 05/06 1815 98.2 60 20 123/56 Nasal 2.0 Cannula 05/ 1630 Nasal 2.0 Cannula / 1349 2.0 05/06 1245 97.9 67 16 128/56 100 Nasal 2.0 Cannula I&O 05/ 0800 05/06 1600 05/07 0000 Intake Total 0 66440 Output Total 4300 40260 Balance -4300 5365 General Appearance Cooperative, No acute distress HEENT EOMI Neck Supple Cardiovascular Regular rate and rhythm Abdomen Soft, No tenderness, No guarding Extremities No edema Psych/Mental Status dementia LAB Results Laboratory Tests 03/04 05/ 05/07 1305 2050 0652 Chemistry Plasma Sodium (136 - 145 mmol/L) 147 Plasma Potassium (3.5 - 5.1 mmol/L) 4.3 Plasma Chloride (98 - 107 mmol/L) 112 CO2 (Enzymatic) (21 - 32 mmol/L) 29 BUN (7 - 18 mg/dL) 12 Creatinine (0.6 - 1.3 mg/dL) 0.9 Est GFR ( Amer) (mL/min) >60 Est GFR (Non-Af Amer) (mL/min) >60 Glucose (70 - 110 mg/dL) 95 Plasma Calcium (8.5 - 10.1 mg/dL) 7.7 Total Bilirubin (0.0 - 1.0 mg/dL) 0.7 AST (15 - 37 U/L) 21 ALT (12 - 78 U/L) 22 Alkaline Phosphatase (46 - 116 U/L) 51 Total Protein (6.4 - 8.2 g/dL) 5.1 Albumin (3.3 - 5.0 g/dL) 2.6 Coagulation INR (0.8 - 1.2) 1.6 Hematology WBC (4.5 - 11.5 K/uL) 4.4 RBC (4.50 - 5.90 M/uL) 2.99 Hgb (13.5 - 17.5 gm/dL) 8.7 9.5 9.1 Hct (41.0 - 53.0 %) 26.7 29.2 28.0 MCV (80 - 100 fL) 94 MCH (26 - 34 pg) 31 RDW (11.6 - 14.8 %) 18.0 Neut % (Auto) (50 - 75 %) 73.1 Lymph % (Auto) (25 - 40 %) 11.8 [place] % (Auto) (3 - 14 %) 8.9 Eos % (Auto) (0 - 4 %) 5.4 Baso % (Auto) (0 - 2 %) 0.8 Plt Count, EDTA (150 - 400 K/uL) 166 PUBS MCHC (31 - 37 g/dL) 33 Assessment and Plan Problem List 1. Hematuria Plan The urinary bladder was irrigated; until clear fluid. Serum sodium remained normal. Normal hydration. Patient had clear urine. One strain and irritated. This morning has a few clots in the catheter tubing.. Patient's H&H is normalized. No downward trend. 2. Stool color black Plan Black stools. Iron supplementation. Previous GI bleed on anticoagulation. Needs follow-up with primary care. Needing patient GI review of the colon. 3. BPH (benign prostatic hypertrophy) with urinary retention Plan BPH with a Medina catheter in place. Needs appropriate management through urology. Consider cystoscopy outpatient basis. In the Meantime continue with use of a Medina catheter; monitor the output at home on discharge. 4. Dementia Plan Dementia on appropriate therapy. May need follow-up with psychiatry, psychology to assess progressive nature of the illness. Overall stable on discharge. Current status: Observation acute care Anticipated discharge date: Today Anticipated discharge placement: Home Patient care time: Time spent in chart review, patient interview, physical exam, CPOE, and care documentation: 35 minutes Visit to patient today: 2 Complexity of care: moderate Initial patient evaluation: Emergency department DVT prophylaxis: Lovenox GI: fametadine E&M Codes Rounding: Inpt-Moderate/[id number] Discharge: Observation - All/[id number]
--- NOTE | 2017-03-05 07:06 | Progress Note ---
Subjective General Note Date: 03/05/2017 Admission Date: 03/14/17 Hospital Day: 2 PCP: Beatrice Stein Status: No code Room: 206 87-year-old white female with a significant past medical history of recurrent pneumonia, hypercholesterolemia, hypertension, chronic pain, fibromyalgia, depression, migraine headache, polymyositis, who presented to [facility] emergency department on the day of admission with the above chief complaint. [facility] ER evaluation was consistent with recurrent hematuria and potential GI Bleed.. Secondary to the above, the patient was admitted by Bruce Ramon M.D. for further evaluation and treatment. Subjective: She was seen at bedside today. Patient has a Medina catheter in place. Urine is flowing to the catheter occasional clot is seen in the tube. Patient reports that the lower abdominal pain is resolving. He has good appetite. Patient is up and walking. Is ready to go home today. Patient requests: Go home. Physical Exam Vital Signs / I&Os Vital Signs Date Time Temp Pulse Resp B/P Pulse O2 O2 Flow FiO2 Ox Delivery Rate 03/05 0640 97.9 61 20 131/60 98 Room Air 03/05 0252 98.2 71 18 147/64 100 Room Air 0.0 / 0124 0.0 / 2228 98.2 56 18 132/65 95 Nasal 2.0 Cannula 05/ 2130 2.0 05/ 1834 97 05/06 1826 2.0 05/06 1815 98.2 60 20 123/56 Nasal 2.0 Cannula 05/ 1630 Nasal 2.0 Cannula / 1349 2.0 05/06 1245 97.9 67 16 128/56 100 Nasal 2.0 Cannula I&O 05/ 0800 05/06 1600 05/07 0000 Intake Total 0 42417 Output Total 4300 06535 Balance -4300 5365 General Appearance Cooperative, No acute distress HEENT EOMI Neck Supple Cardiovascular Regular rate and rhythm Abdomen Soft, No tenderness, No guarding Extremities No edema Psych/Mental Status dementia LAB Results Laboratory Tests 03/04 05/ 05/07 1305 2050 0652 Chemistry Plasma Sodium (136 - 145 mmol/L) 147 Plasma Potassium (3.5 - 5.1 mmol/L) 4.3 Plasma Chloride (98 - 107 mmol/L) 112 CO2 (Enzymatic) (21 - 32 mmol/L) 29 BUN (7 - 18 mg/dL) 12 Creatinine (0.6 - 1.3 mg/dL) 0.9 Est GFR ( Amer) (mL/min) >60 Est GFR (Non-Af Amer) (mL/min) >60 Glucose (70 - 110 mg/dL) 95 Plasma Calcium (8.5 - 10.1 mg/dL) 7.7 Total Bilirubin (0.0 - 1.0 mg/dL) 0.7 AST (15 - 37 U/L) 21 ALT (12 - 78 U/L) 22 Alkaline Phosphatase (46 - 116 U/L) 51 Total Protein (6.4 - 8.2 g/dL) 5.1 Albumin (3.3 - 5.0 g/dL) 2.6 Coagulation INR (0.8 - 1.2) 1.6 Hematology WBC (4.5 - 11.5 K/uL) 4.4 RBC (4.50 - 5.90 M/uL) 2.99 Hgb (13.5 - 17.5 gm/dL) 8.7 9.5 9.1 Hct (41.0 - 53.0 %) 26.7 29.2 28.0 MCV (80 - 100 fL) 94 MCH (26 - 34 pg) 31 RDW (11.6 - 14.8 %) 18.0 Neut % (Auto) (50 - 75 %) 73.1 Lymph % (Auto) (25 - 40 %) 11.8 [place] % (Auto) (3 - 14 %) 8.9 Eos % (Auto) (0 - 4 %) 5.4 Baso % (Auto) (0 - 2 %) 0.8 Plt Count, EDTA (150 - 400 K/uL) 166 PUBS MCHC (31 - 37 g/dL) 33 Assessment and Plan Problem List 1. Hematuria Plan The urinary bladder was irrigated; until clear fluid. Serum sodium remained normal. Normal hydration. Patient had clear urine. One strain and irritated. This morning has a few clots in the catheter tubing.. Patient's H&H is normalized. No downward trend. 2. Stool color black Plan Black stools. Iron supplementation. Previous GI bleed on anticoagulation. Needs follow-up with primary care. Needing patient GI review of the colon. 3. BPH (benign prostatic hypertrophy) with urinary retention Plan BPH with a Medina catheter in place. Needs appropriate management through urology. Consider cystoscopy outpatient basis. In the Meantime continue with use of a Medina catheter; monitor the output at home on discharge. 4. Dementia Plan Dementia on appropriate therapy. May need follow-up with psychiatry, psychology to assess progressive nature of the illness. Overall stable on discharge. Current status: Observation acute care Anticipated discharge date: Today Anticipated discharge placement: Home Patient care time: Time spent in chart review, patient interview, physical exam, CPOE, and care documentation: 35 minutes Visit to patient today: 2 Complexity of care: moderate Initial patient evaluation: Emergency department DVT prophylaxis: Lovenox GI: fametadine E&M Codes Rounding: Inpt-Moderate/[id number] Discharge: Observation - All/[id number]
[2017-03-05 10:37] VITALS: BP 117/56
[2017-03-05] MEDS ORDERED: LOVENOX80 MG/0.8 SC (11:56)
--- NOTE | 2017-03-05 12:02 | Provider's Discharge Care Plan ---
Problem, Goal, Plan Problem List 1. BPH (benign prostatic hypertrophy) with urinary retention Goals: Improve disease control, Screening, Therapeutic intervention Instructions: Take meds as directed, Recommending follow-up with urology 2. Hematuria Goals: discharged with recommendations on follow-up for her urology appointment ordered through her PCP Instructions: Take meds as directed, monitor Medina catheter and any future signs of hematuria, follow-up with urology 3. Stool color black Goals: stool, black in color related to iron supplementation. Continue with the iron supplementation to improve on anemia. Instructions: Follow up as directed, iron supplementation Return to ER with disease 4. Anticoagulation goal of INR 2.5 to 3.5 Goals: Diagnostic testing, Improve nutrition status, Prevent disease progress , INR follow-up Instructions: Follow up as directed, Take meds as directed 5. Dyspnea Goals: Diagnostic testing, Prevent disease progress Instructions: Follow up as directed 6. Dementia Goals: Learn about illness, Prevent disease progress Instructions: Follow up as directed
== END 2017-03-05 12:30 | disposition home or self-care (01) ==
LOC: ED SRH 07:37 → TRANS SRH 10:08 → ACUTE2 SRH 12:35
PROVIDERS: ADMIT Emergency Medicine
DX: R31.0 Gross hematuria (principal); R19.5 Other fecal abnormalities; T45.515A Adverse effect of anticoagulants, initial encounter; N40.1 Benign prostatic hyperplasia with lower urinary tract symptoms; R33.8 Other retention of urine; Z95.0 Presence of cardiac pacemaker; Z95.2 Presence of prosthetic heart valve; I11.0 Hypertensive heart disease with heart failure; I50.9 Heart failure, unspecified; M79.7 Fibromyalgia
CPT/HCPCS: 29230; 29246; 29251; 29263; 81240; 82956; 85241; 90004; 90074; 90100; 90616; 91162; 91163; 92610; 92720; 94001; 94060; 95059

== ENCOUNTER 2017-03-17 10:10 | Outpatient (CLI) | payer OTHER, MEDICARE ==
[~2017-03-17 10:10] MED LIST changes: +LOVENOX80 MG/0.8 SC
== END 2017-03-17 23:00 ==
LOC: LAB SRH 10:10
DX: I95.9 Hypotension, unspecified (principal)
CPT/HCPCS: 90074; 90100; 90648; 91023; 92031; 93004; 93010; 93140; 94060; 95059

== ENCOUNTER 2017-03-18 15:27 | Emergency (ER) | payer OTHER, MEDICARE ==
--- NOTE | 2017-03-18 18:34 | ED NURSING NOTES ---
Clinical Report - Nurses [place] [address] [address] 03/18/2017 15:27 Patient: SLY MUSTAFA TRIAGE Acuity: LEVEL 4. Chief Complaint: GASTELUM PROBLEM. Alert. No acute distress. SEPSIS SCREEN: Sepsis Screen. Negative (no infection suspected/documented). --16:30 Octavia Drake R.N. 16:21 03/18/17. BP: 124/74. HR: 72. RR: 20. O2 saturation: 98% on room air. Temp: 98 F (oral). Pain level now: 02/06. --16:30 Octavia Drake R.N. Weight: 80.7 kg stated. Height/Length: 71 inches Per Patient. BMI: 24.8. --16:27 Octavia Drake R.N. Medications Lovenox Subcutaneous, 2x a day. Warfarin Sodium Oral 13mg daily. --16:23 Octavia Drake R.N. Namenda Oral 10 mg, 2x a day. --16:24 Octavia Drake R.N. Aricept Oral (Tablet 5 mg), daily. --16:24 Octavia Drake R.N. Tamsulosin HCl Oral 0.4 mg, at bedtime. --16:24 Octavia Drake R.N. Pantoprazole Sodium Oral 40 mg, 2x a day. --16:24 Octavia Drake R.N. Ferrous Sulfate Oral. --16:25 Octavia Drake R.N. Senna Oral. --16:25 Octavia Drake R.N. Docusate Sodium Oral. --16:25 Octavia Drake R.N. Fish Oil Oral. --16:25 Octavia Drake R.N. Aspirin Oral (Tablet 81 mg). --16:25 Octavia Drake R.N. Vitamin D Oral. --16:25 Octavia Drake R.N. Calcium-Magnesium Oral. --16:26 Octavia Drake R.N. Centrum Silver Oral. --16: Octavia Drake R.N. Melatonin Oral. --16: Octavia Drake R.N. Levothyroxine Sodium Oral 50 mcg, daily. --16: Octavia Drake R.N. Finasteride Oral 5 mg, daily. --16: Octavia Drake R.N. Medication/allergy information source: the patient. --16:30 Octavia Drake R.N. Allergies No Known Drug Allergy. --16: Octavia Drake R.N. History Arrived by private vehicle. Historian: patient. Accompanied by daughter. Primary physician (Pedro Luissanam). This started today. He has been unable to void. SOCIAL HX: Former smoker, end date 1996. No alcohol use or drug use. NUTRITIONAL RISK ASSESSMENT: The nutritional risk assessment revealed no deficiencies. LEARNING NEEDS ASSESSMENT: The learning needs assessment revealed no barriers. FALL RISK ASSESSMENT: Fall risk assessment completed. Risk factors identified include patient age greater than 65 years. Fall interventions initiated. Patient placed on stretcher. Side rails up x2. Brakes on Bed in low position. FUNCTIONAL ASSESSMENT: Functional assessment performed: requires assistance with the activities of daily living; cognitive impairment- senile dementia. SKIN INTEGRITY ASSESSMENT: Skin integrity risk assessment completed. No skin integrity risk identified. --16: Octavia Drake R.N. ( Pt reports his gastelum came out today. He has urine retention.). --16: Octavia Drake R.N. PROBLEMS: Gastelum Catheter. Urinary Retention. Anemia. Dyspnea. Rectal Prolapse. Dimentia . Cardiac Procedures. --16: Octavia Drake R.N. ADDITIONAL SURGERIES: Cardiac valve replacement . Hernia Repair. Pacemaker. --16:27 Octavia Drake R.N. Assessment GENERAL / NEURO / PSYCH: Alert. Oriented X 4. Appears in no acute distress. Patient appears calm and cooperative. RESPIRATORY: Respirations not labored. CVS: Capillary refill less than 2 seconds. GI / : Abdomen soft and nontender. SKIN: Mucous membranes are pink. Skin is warm and dry. --16:30 Winterer, Octavia, R.N. Interventions ID band on patient. To treatment room. --16:30 Octavia Drake R.N. PHYSICAL ASSESSMENT 16:03/18/17. Ambulatory to room. GENERAL / NEURO / PSYCH: Alert. Oriented X 4. Appears in no acute distress. HEENT: Mucous membranes are pink. RESPIRATORY: Respirations not labored. CVS: Capillary refill less than 2 seconds. GI / : Abdomen soft. Abdominal tenderness in the lower abdomen. SKIN: Skin is warm and dry. --16:31 Octavia Drake R.N. NURSING PROGRESS NOTES 16:30 03/18/17. Patient gowned. Two patient identifiers checked. Call light placed in reach. Side rails up x 1. Bed placed in lowest position. Brakes of bed on. Patient ready for evaluation- chart flagged and ED physician and PA notified. --16:30 Octavia Drake R.N. 17:03/18/17. ( Bladder scan 525 mL). --17:31 Octavia Drake R.N. DISPOSITION / DISCHARGE Departure time: 18:35 Mar 18 2017. Condition at departure: improved and stable. No learning barriers present. Discharge instructions provided and reviewed with the patient (daughter). Patient verbalized understanding. Written instructions provided in Norwegian. The patient was discharged by the physician faculty research assistant. He was discharged home and accompanied by daughter. He left the Emergency Department ambulatory and via private vehicle. Driving (daughter). --19:06 Octavia Drake R.N. 19:03/18/17. BP: deferred. Additional comments: PA discharged. --19:06 Octavia Drake R.N. Locked/Released at 03/18/2017 19:06 by Octavia Drake R.N.
--- NOTE | 2017-03-18 18:34 | ED ORDER SUMMARY ---
..... Patient: SLY MUSTAFA OrderSheet [facility] VisitID: [id number] [address] [place] [address] 87y, M Registration Date/Time: 03/18/2017 ORDER SHEET Weight: 80.7 kg (stated) Allergies: No Known Drug Allergy GENERAL ORDERS: UA-Culture if indicated Urgent (16:55 03/18/2017 Jodi SOUZA) [facility] MEDICATION ORDERS: IV FLUIDS: ORDER SHEET NOTES: [Electronically signed by Octavia Drake R.N. (19:06 03/18/2017)] [Electronically signed by Madison Riggins PA-C (00:21 03/19/2017)] [Electronically locked/signed by Octavia Drake R.N. (19:06 03/18/2017)]
--- NOTE | 2017-03-18 18:34 | ED CLINICAL REPORT ---
Clinical Report - Physicians/Mid Levels [facility] [address] [place] [address] 03/18/2017 15:27 Patient: SLY MUSTAFA Time Seen: 16:46; initial patient contact. Arrived- By private vehicle. Historian- patient. HISTORY OF PRESENT ILLNESS Chief Complaint: URINARY RETENTION and GASTELUM PROBLEM. This started months and is still present. The problem is described as moderate. The patient has had Gastelum catheter problems, with bloody urine noted. The catheter fell out. Sexual history is noncontributory. Similar symptoms previously: Many times. Recent medical care: The patient was seen recently at another facility in a clinic. REVIEW OF SYSTEMS No fever, chills or flank pain. The patient has had severe hematuria with previous similar symptoms (chronically). All systems otherwise negative, except as recorded above. PAST HISTORY See nurses notes. Benign prostatic hypertrophy. Severe urinary retention. See old chart. Has indwelling Gastelum catheter. Problems: Anemia. Dyspnea. Rectal Prolapse. Dimentia . Cardiac Procedures. Medications: Finasteride Oral 5 mg, daily. Levothyroxine Sodium Oral 50 mcg, daily. Melatonin Oral. Centrum Silver Oral. Calcium-Magnesium Oral. Vitamin D Oral. Aspirin Oral (Tablet 81 mg). Fish Oil Oral. Docusate Sodium Oral. Senna Oral. Ferrous Sulfate Oral. Pantoprazole Sodium Oral 40 mg, 2x a day. Tamsulosin HCl Oral 0.4 mg, at bedtime. Aricept Oral (Tablet 5 mg), daily. Namenda Oral 10 mg, 2x a day. Lovenox Subcutaneous, 2x a day. Warfarin Sodium Oral 13mg daily. Allergies: No Known Drug Allergy. SOCIAL HISTORY No alcohol use or drug use. FAMILY HISTORY Negative. ADDITIONAL NOTES The nursing notes have been reviewed with agreement regarding the chief complaint, HPI, ROS, PMH and patient medications and allergies. PHYSICAL EXAM Vital Signs: 03/18/2017 16:21 BP: 124/74. HR: 72. RR: 20. O2 saturation: 98%. Temp: 98 F. Pain level now: 4/10. Have been reviewed. Appearance: Alert. No acute distress. ENT: Normal external inspection. Neck: Neck supple. CVS: Heart sounds normal. Respiratory: No respiratory distress. Breath sounds normal. Abdomen: Soft and nontender. Bowel sounds normal. : Gastelum catheter returning bloody urine. Skin: Normal skin color. Normal skin turgor. Extremities: No lower extremity edema. PROGRESS AND PROCEDURES Course of Care: 16:30 03/18/17. Patient gowned. Two patient identifiers checked. Call light placed in reach. Side rails up x 1. Bed placed in lowest position. Brakes of bed on. Patient ready for evaluation- chart flagged and ED physician and PA notified. --16:30 Octavia Drake R.N. 17:31 03/18/17. ( Bladder scan 525 mL). --17:31 Octavia Drake R.N. DISPOSITION / DISCHARGE Departure time: 18:35 Mar 18 2017. Condition at departure: improved and stable. No learning barriers present. Discharge instructions provided and reviewed with the patient (daughter). Patient verbalized understanding. Written instructions provided in Yi. The patient was discharged by the physician content assistant. He was discharged home and accompanied by daughter. He left the Emergency Department ambulatory and via private vehicle. Driving (daughter). --19:06 Octavia Drake R.N. 19:03/18/17. BP: deferred. Additional comments: PA discharged. --19:06 Octavia Drake R.N. Gastelum catheter replaced by RN, with some bloody urine on return, with resolution of his retention. pt states that he gets bloody urine frequently. per his daughter, she 'fiddles with it' when he doesn't get any return of urine, it may turn bloody then goes back to normal. he has no pain. he sees Dr. Setin on monday and his urologist next month. pt states this is not unusual for him... Patient is stable. Physical exam findings are improved. Symptoms better. Patient/family counseled. CLINICAL IMPRESSION Gross hematuria. Urinary retention with enlarged prostate. Benign prostatic hypertrophy with prostatism and urinary retention. replaced gastelum catheter in ER. INSTRUCTIONS No restrictions to activity. (please see DR. Stein this week and make arrangements to see urology. if it clogs again, you may need to return to the ER.). Warnings: Further evaluation is necessary. It is very important to follow up with a physician. GENERAL WARNINGS: Return or contact your physician immediately if your condition worsens or changes unexpectedly, if not improving as expected, or if other problems arise. Your Current Medications: CONTINUE TAKING THE FOLLOWING MEDICATIONS: Aricept Oral : Tablet 5 mg, daily. Aspirin Oral : Tablet 81 mg. Calcium-Magnesium Oral. Centrum Silver Oral. Docusate Sodium Oral. Ferrous Sulfate Oral. Finasteride Oral : 5 mg daily. Fish Oil Oral. Levothyroxine Sodium Oral : 50 mcg daily. Lovenox Subcutaneous : 2x a day. Melatonin Oral. Namenda Oral : 10 mg 2x a day. Pantoprazole Sodium Oral : 40 mg 2x a day. Senna Oral. Tamsulosin HCl Oral : 0.4 mg at bedtime. Vitamin D Oral. Warfarin Sodium Oral : 13mg daily. Follow-up: Follow up with a urologist- as recommended by your primary care physician- if not better. Understanding of the discharge instructions verbalized by patient and family. (Electronically signed by Madison Riggins PA-C 03/19/2017 0:21)
--- NOTE | 2017-03-18 18:34 | ED NURSING NOTES ---
Clinical Report - Nurses [place] [address] [place] [address] 03/18/2017 15:27 Patient: SLY MUSTAFA TRIAGE Acuity: LEVEL 4. Chief Complaint: GASTELUM PROBLEM. Alert. No acute distress. SEPSIS SCREEN: Sepsis Screen. Negative (no infection suspected/documented). --16:30 Octavia Drake R.N. 16:21 03/18/17. BP: 124/74. HR: 72. RR: 20. O2 saturation: 98% on room air. Temp: 98 F (oral). Pain level now: 02/06. --16:30 Octavia Drake R.N. Weight: 80.7 kg stated. Height/Length: 71 inches Per Patient. BMI: 24.8. --16:27 Octavia Drake R.N. Medications Lovenox Subcutaneous, 2x a day. Warfarin Sodium Oral 13mg daily. --16:23 Octavia Drake R.N. Namenda Oral 10 mg, 2x a day. --16:24 Octavia Drake R.N. Aricept Oral (Tablet 5 mg), daily. --16:24 Octavia Drake R.N. Tamsulosin HCl Oral 0.4 mg, at bedtime. --16:24 Octavia Drake R.N. Pantoprazole Sodium Oral 40 mg, 2x a day. --16:24 Octavia Drake R.N. Ferrous Sulfate Oral. --16:25 Octavia Drake R.N. Senna Oral. --16:25 Octavia Drake R.N. Docusate Sodium Oral. --16:25 Octavia Drake R.N. Fish Oil Oral. --16:25 Octavia Drake R.N. Aspirin Oral (Tablet 81 mg). --16:25 Octavia Drake R.N. Vitamin D Oral. --16:25 Octavia Drake R.N. Calcium-Magnesium Oral. --16:26 Octavia Drake R.N. Centrum Silver Oral. --16: Octavia Drake R.N. Melatonin Oral. --16: Octavia Drake R.N. Levothyroxine Sodium Oral 50 mcg, daily. --16: Octavia Drake R.N. Finasteride Oral 5 mg, daily. --16: Octavia Drake R.N. Medication/allergy information source: the patient. --16:30 Octavia Draek R.N. Allergies No Known Drug Allergy. --16: Octavia Drake R.N. History Arrived by private vehicle. Historian: patient. Accompanied by daughter. Primary physician (Pedro Luissanam). This started today. He has been unable to void. SOCIAL HX: Former smoker, end date 1996. No alcohol use or drug use. NUTRITIONAL RISK ASSESSMENT: The nutritional risk assessment revealed no deficiencies. LEARNING NEEDS ASSESSMENT: The learning needs assessment revealed no barriers. FALL RISK ASSESSMENT: Fall risk assessment completed. Risk factors identified include patient age greater than 65 years. Fall interventions initiated. Patient placed on stretcher. Side rails up x2. Brakes on Bed in low position. FUNCTIONAL ASSESSMENT: Functional assessment performed: requires assistance with the activities of daily living; cognitive impairment- senile dementia. SKIN INTEGRITY ASSESSMENT: Skin integrity risk assessment completed. No skin integrity risk identified. --16: Octavia Drake R.N. ( Pt reports his gastelum came out today. He has urine retention.). --16: Octavia Drake R.N. PROBLEMS: Gastelum Catheter. Urinary Retention. Anemia. Dyspnea. Rectal Prolapse. Dimentia . Cardiac Procedures. --16: Octavia Drake R.N. ADDITIONAL SURGERIES: Cardiac valve replacement . Hernia Repair. Pacemaker. --16:27 Octavai Drake R.N. Assessment GENERAL / NEURO / PSYCH: Alert. Oriented X 4. Appears in no acute distress. Patient appears calm and cooperative. RESPIRATORY: Respirations not labored. CVS: Capillary refill less than 2 seconds. GI / : Abdomen soft and nontender. SKIN: Mucous membranes are pink. Skin is warm and dry. --16:30 Winterer, Octavia, R.N. Interventions ID band on patient. To treatment room. --16:30 Octavia Drake R.N. PHYSICAL ASSESSMENT 16:03/18/17. Ambulatory to room. GENERAL / NEURO / PSYCH: Alert. Oriented X 4. Appears in no acute distress. HEENT: Mucous membranes are pink. RESPIRATORY: Respirations not labored. CVS: Capillary refill less than 2 seconds. GI / : Abdomen soft. Abdominal tenderness in the lower abdomen. SKIN: Skin is warm and dry. --16:31 Octavia Drake R.N. NURSING PROGRESS NOTES 16:30 03/18/17. Patient gowned. Two patient identifiers checked. Call light placed in reach. Side rails up x 1. Bed placed in lowest position. Brakes of bed on. Patient ready for evaluation- chart flagged and ED physician and PA notified. --16:30 Octavia Drake R.N. 17:03/18/17. ( Bladder scan 525 mL). --17:31 Octavia Drake R.N. DISPOSITION / DISCHARGE Departure time: 18:35 Mar 18 2017. Condition at departure: improved and stable. No learning barriers present. Discharge instructions provided and reviewed with the patient (daughter). Patient verbalized understanding. Written instructions provided in Montserratian. The patient was discharged by the physician assistant professor of business. He was discharged home and accompanied by daughter. He left the Emergency Department ambulatory and via private vehicle. Driving (daughter). --19:06 Octavia Drake R.N. 19:03/18/17. BP: deferred. Additional comments: PA discharged. --19:06 Octavia Drake R.N. Locked/Released at 03/18/2017 19:06 by Octavia Drake R.N.
--- NOTE | 2017-03-18 18:34 | ED ORDER SUMMARY ---
..... Patient: SLY MUSTAFA OrderSheet [facility] VisitID: [id number] [address] [place] [place] [address] 87y, M Registration Date/Time: 03/18/2017 ORDER SHEET Weight: 80.7 kg (stated) Allergies: No Known Drug Allergy GENERAL ORDERS: UA-Culture if indicated Urgent (16:55 03/18/2017 Jodi SOUZA) ([facility] [facility] MEDICATION ORDERS: IV FLUIDS: ORDER SHEET NOTES: [Electronically signed by Octavia Drake R.N. (19:06 03/18/2017)] [Electronically signed by Madison Riggins PA-C (00:21 03/19/2017)] [Electronically locked/signed by Octavia Drake R.N. (19:06 03/18/2017)]
--- NOTE | 2017-03-19 00:21 | ED MAR SUMMARY ---
..... Medication Administration Record [facility] [address] [place] [address] Patient: SLY MUSTAFA Visit ID: [id number] 87y, M Weight: 80.7 kg Height/Length: 71 in BMI: 24.8 ALLERGIES: No Known Drug Allergy
--- NOTE | 2017-03-19 00:21 | ED MAR SUMMARY ---
..... Medication Administration Record [facility] [address] [place] [address] Patient: SLY MUSTAFA Visit ID: [id number] 87y, M Weight: 80.7 kg Height/Length: 71 in BMI: 24.8 ALLERGIES: No Known Drug Allergy
--- NOTE | 2017-03-19 00:21 | ED DISCHARGE INSTRUCTIONS ---
Patient: SLY MUSTAFA General Instructions [facility] VisitID: [id number] [address] [place] [address] 87y, M Registration Date/Time: 03/18/2017 Gross hematuria. Urinary retention with enlarged prostate. Benign prostatic hypertrophy with prostatism and urinary retention. replaced abbasi catheter in ER. INSTRUCTIONS No restrictions to activity. (please see DR. Stein this week and make arrangements to see urology. if it clogs again, you may need to return to the ER.). Warnings: Further evaluation is necessary. It is very important to follow up with a physician. GENERAL WARNINGS: Return or contact your physician immediately if your condition worsens or changes unexpectedly, if not improving as expected, or if other problems arise. Your Current Medications: CONTINUE TAKING THE FOLLOWING MEDICATIONS: Aricept Oral : Tablet 5 mg, daily. Aspirin Oral : Tablet 81 mg. Calcium-Magnesium Oral. Centrum Silver Oral. Docusate Sodium Oral. Ferrous Sulfate Oral. Finasteride Oral : 5 mg daily. Fish Oil Oral. Levothyroxine Sodium Oral : 50 mcg daily. Lovenox Subcutaneous : 2x a day. Melatonin Oral. Namenda Oral : 10 mg 2x a day. Pantoprazole Sodium Oral : 40 mg 2x a day. Senna Oral. Tamsulosin HCl Oral : 0.4 mg at bedtime. Vitamin D Oral. Warfarin Sodium Oral : 13mg daily. Follow-up: Follow up with a urologist- as recommended by your primary care physician- if not better. Understanding of the discharge instructions verbalized by patient and family. ADDITIONAL INFORMATION Urinary Retention (Male) Urinary retention means that you are unable to pass urine, even though your bladder is full. The most common cause for this in males is a blockage of the bladder outlet by an enlarged prostate gland or a bladder infection. Certain medicines can also cause this problem. This condition is treated by insertion of a catheter into the bladder to drain the urine. This provides immediate relief. The catheter may need to remain in place for a few days to prevent a recurrence. The catheter has a balloon on the tip which was inflated after insertion. This prevents the catheter from falling out. Home Care: If an antibiotic was prescribed to treat a bladder infection, be sure to take it until finished, even if you are feeling better before it is all gone. If a catheter was left in place, it is important to keep bacteria from getting into the collection bag. Do not disconnect the catheter from the collection bag. Use a leg band to secure the drainage tube, so it does not pull on the catheter. Drain the collection bag when it becomes full using the drain spout at the bottom of the bag. Do not try to pull or remove your catheter. This will injure your urethra. It must be removed by a doctor or nurse. Follow Up with your doctor as advised. If a catheter was left in place, it can usually be removed within 3-7 days. Some conditions require that the catheter remains in longer. Follow up with your doctor to determine the right time for you. Get Prompt Medical Attention if any of the following occur: Fever of 100.4F (38C) or higher, or as directed by your healthcare provider Bladder or lower abdominal pain or fullness Abdominal swelling, nausea, vomiting or back pain Blood or urine leakage around the catheter Bloody urine coming from the catheter (if a new symptom) Weakness, dizziness or fainting Confusion or change in usual level of alertness If a catheter was left in place, return if: Catheter falls out Catheter stops draining for 6 hours Bph (Enlarged Prostate) The prostate is a gland at the base of the bladder. As some men get older, the prostate may begin to increase in size. This problem is called benign prostatic hyperplasia (BPH). BPH puts pressure on the urethra. This is the tube that carries urine from the bladder to the penis. It may interfere with the flow of urine. It may also keep the bladder from emptying fully. Symptoms of BPH include trouble starting urination and feeling as though the bladder isnt emptying all the way. It also includes a weak urine stream, dribbling and leaking of urine, and frequent and urgent urination (especially at night). BPH can increase the risk of urinary infections. It can also block off urine flow completely. If this occurs, a thin tube (catheter) may be passed into the bladder to help drain urine. If symptoms are mild, no treatment may be needed at this time. If symptoms are more severe, treatment is likely needed. The goal of treatment is to improve urine flow and reduce symptoms. Treatments can include medications and procedures. Your doctor will discuss treatment options with you as needed. Home Care: Urinate as soon as you feel the urge. Do not try to hold your urine. Do not limit your fluid intake during the day. Drink 6 to 8 glasses of water or liquids a day. This prevents bacteria from building up in the bladder. Avoid drinking fluids after dinner. This may reduce urination during the night. Avoid medications that can worsen your symptoms. These include certain cold and allergy medications and antidepressants. Diuretics used for high blood pressure can also worsen symptoms. Talk to your doctor about the medications you take. Other drugs may work better for you. Prostate Cancer Screening: BPH does not increase the risk of prostate cancer. But because prostate cancer is a common cancer in men, screening is recommended for all men in general. This may help detect the cancer in its early stages when treatment is most effective. Screening often begins at age 50. Or it may be begin earlier if youre at higher risk. Factors that can increase the risk of prostate cancer include being -[place] or having a father or brother who had prostate cancer. A high-fat diet may also increase the risk of prostate cancer. Follow Up with your doctor or urologist as told. To learn more, go to: National Kidney & Urologic Diseases Information Clearinghouse kidney.niddk.nih.gov, 965-6186219 Get Prompt Medical Attention if any of the following occur: Fever of 100.4F (38.0C) or higher, or as directed by your healthcare provider Unable to pass urine for 8 hours Increasing pressure or pain in your bladder (lower abdomen) Blood in the urine Increasing low back pain, not related to injury Symptoms of urinary infection (increased urge to urinate, burning when passing urine, foul-smelling urine) You have been given the following additional information: Urinary Retention, Male BPH (Enlarged Prostate) No restrictions to activity. (Electronically signed by Madison Riggins PA-C 03/19/2017 0:21)
--- NOTE | 2017-03-19 00:22 | ED MED RECONCILIATION SUMMARY ---
Patient: SLY MUSTAFA Medication Reconciliation Report [facility] VisitID: [id number] [address] [place] [address] 87y, M Registration Date/Time: 03/18/2017 Weight: 80.7 kg Height/Length: 71 in. BMI: 24.8 ALLERGIES: No Known Drug Allergy The patient's Home Medications are listed below: CONTINUE TAKING THE FOLLOWING MEDICATIONS: Aricept Oral (5 mg), daily Aspirin Oral (81 mg) Calcium-Magnesium Oral Centrum Silver Oral Docusate Sodium Oral Ferrous Sulfate Oral Finasteride Oral 5 mg, daily Fish Oil Oral Levothyroxine Sodium Oral 50 mcg, daily Lovenox Subcutaneous, 2x a day Melatonin Oral Namenda Oral 10 mg, 2x a day Pantoprazole Sodium Oral 40 mg, 2x a day Senna Oral Tamsulosin HCl Oral 0.4 mg, at bedtime Vitamin D Oral Warfarin Sodium Oral 13mg daily The source(s) of the original Home Medication information: patient The following Medications were given to the patient in the Emergency Department: None. The following Medications were prescribed to the patient: None.
--- NOTE | 2017-03-19 00:22 | ED MED RECONCILIATION SUMMARY ---
Patient: SLY MUSTAFA Medication Reconciliation Report [facility] VisitID: [id number] [address] [place] [address] 87y, M Registration Date/Time: 03/18/2017 Weight: 80.7 kg Height/Length: 71 in. BMI: 24.8 ALLERGIES: No Known Drug Allergy The patient's Home Medications are listed below: CONTINUE TAKING THE FOLLOWING MEDICATIONS: Aricept Oral (5 mg), daily Aspirin Oral (81 mg) Calcium-Magnesium Oral Centrum Silver Oral Docusate Sodium Oral Ferrous Sulfate Oral Finasteride Oral 5 mg, daily Fish Oil Oral Levothyroxine Sodium Oral 50 mcg, daily Lovenox Subcutaneous, 2x a day Melatonin Oral Namenda Oral 10 mg, 2x a day Pantoprazole Sodium Oral 40 mg, 2x a day Senna Oral Tamsulosin HCl Oral 0.4 mg, at bedtime Vitamin D Oral Warfarin Sodium Oral 13mg daily The source(s) of the original Home Medication information: patient The following Medications were given to the patient in the Emergency Department: None. The following Medications were prescribed to the patient: None.
== END 2017-03-18 18:35 | disposition home or self-care (01) ==
LOC: ED SRH 15:27
DX: R31.0 Gross hematuria (principal); R33.9 Retention of urine, unspecified; N40.1 Benign prostatic hyperplasia with lower urinary tract symptoms; Z79.899 Other long term (current) drug therapy

== ENCOUNTER 2017-03-20 09:29 | Inpatient (IN) | payer OTHER, MEDICARE ==
[~2017-03-20] VITALS: Ht 180.3 cm; Wt 78.9 kg
[2017-03-20 09:57] VITALS: BP 103/47
[2017-03-20 15:45] VITALS: BP 98/48
[2017-03-20] MEDS ORDERED: MELATONIN1 M1 PO (17:05)
[2017-03-20] MEDS ORDERED: FLOMAX0.4 MG PO (17:06)
[2017-03-20] MEDS ORDERED: WARFARIN SODIUM6 MG PO (17:09)
[2017-03-20] MEDS ORDERED: COUMADIN7.5 MG PO (17:09)
[2017-03-20] MEDS ORDERED: FINASTERIDE5 MG PO (17:11)
[2017-03-20] MEDS ORDERED: ASPIRIN ADULT L81 MG PO (17:11)
[2017-03-20] MEDS ORDERED: LEVOTHYROXINE50 MCG PO (17:12)
[2017-03-20 18:16] VITALS: BP 86/47
--- NOTE | 2017-03-20 20:18 | HISTORY AND PHYSICAL ---
ADMITTED: 03/20/2017 CHIEF COMPLAINT: 1. Weakness HISTORY OF PRESENT ILLNESS: This is an 87-year-old male with a history of valve replacement, on Coumadin and Lovenox, who was with previously a GI bleed, which has now resolved, now with BPH with urinary retention, a chronic indwelling catheter and hematuria, presenting to the hospital with complaints of increasing weakness. The patient was seen on Monday for the weakness and feeling abnormal. Laboratories were done at that time and his hemoglobin and hematocrit actually was very reassuring and stable from previous and his other laboratories were normal except for new diagnosis of hypothyroidism. Levothyroxine was started. Over the weekend, patient pulled out his abbasi catheter withOUT deflating the balloon and was seen in ER to have catheter replaced. Since that time patient has had gross hematuria with some clots. This morning I got back a urine culture showing UTI and when I called the family, they said that he was so weak today that he could barely walk. At this point, it was determined that patient needed to be admitted to the hospital for treatment of his UTI and ongoing hematuria. 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 Surgery: Pacemaker, valve replacement, left inguinal hernia repair, tonsillectomy, circumcision, shoulder surgery, knee surgery, hemorrhoidectomy. MEDICATIONS: 1. Levothyroxine 50 mcg, was started on Monday. 2. Aspirin 81 mg p.o. t.i.d. 3. Finasteride 5 mg p.o. daily. 4. Warfarin 13 mg on Monday, Monday, Monday and 14 mg on Monday, , Monday, Monday. 5. Lovenox 80 mg subcutaneously b.i.d. 6. Polyethylene glycol 17 g p.o. daily p.r.n. diarrhea. 7. Pantoprazole 40 mg p.o. b.i.d. 8. Senna 8.6 mg p.o. b.i.d. 9. Colace 100 mg p.o. b.i.d. 10. Flomax 0.4 mg p.o. b.i.d. 11. Iron 325 mg p.o. b.i.d. 12. Vitamin D 1000 international units p.o. daily. 13. Fish oil 1200 mg p.o. daily. 14. Multivitamin 1 tablet p.o. daily. 15. Melatonin 10 mg p.o. at bedtime p.r.n. insomnia. 16. Namenda 10 mg p.o. b.i.d. 17. Aricept 5 mg p.o. daily. ALLERGIES: 1. NKDA SOCIAL HISTORY: The patient currently lives with his daughter and her boyfriend at his home. 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 He is and has 5 children. The patient denies drug or alcohol use and does not smoke. He does, however, have a 5-pack-year history of smoking in his 20s. FAMILY HISTORY: Both parents smoked and are . REVIEW OF SYSTEMS: A full 12-point review of systems was negative except as per HPI. PHYSICAL EXAMINATION: VITAL SIGNS: Blood pressure is 86/47-103/47, pulse is 69-70, respiratory rate is 18, O2 saturation is 97-100% on room air, T-max is 36.4 degrees Celsius. GENERAL: This is a fairly well-appearing male sitting in bed in no apparent distress. HEENT: Head is atraumatic, normocephalic. Pupils are equal, round, and reactive to light with accommodation bilaterally. Oropharynx is nonerythematous without exudates and moist. Trachea is midline. NECK: There is no JVD. HEART: S1, S2, regular rate and rhythm. No S3, S4, gallops, or rubs. There is a 3/6 holosystolic murmur, increased at the base. ABDOMEN: Soft, nontender, nondistended without hepatosplenomegaly or masses. Bowel sounds are active. EXTREMITIES: There is no peripheral edema. LAB/IMAGING: Labs: Sodium is 142, chloride is 108, BUN is 23, potassium is 4.5, bicarb is 27, creatinine of 1.1, glucose of 129, calcium of 8.3. Albumin of 2.9, total bilirubin 0.4, alk phos 51, AST of 21, ALT of 24. INR 2.2. White blood cell count of 3.2, hemoglobin of 7.4, hematocrit of 22.6 and platelets are 171,000. Hemoglobin, hematocrit on Monday was 11.1 and 33.7 and has dropped to 7.4 and 22.6 today, and patient is likely dehydrated. Urine culture in the office grew out greater than 100,000 of staph coagulase negative that was pansensitive to cefazolin, gentamicin, levofloxacin, nitrofurantoin, oxacillin, Bactrim, tetracycline, and vancomycin. IMPRESSION: 1. This is an 87-year-old male with mechanical valve replacement, on chronic anticoagulation, currently on lovenox while titrating his Coumadin with recent gastrointestinal bleed and epistaxis, both of which have now resolved, now presenting with gross hematuria secondary to trauma from indwelling catheter causing severe anemia and urinary tract infection. PLAN: 1. Fluids, electrolytes, nutrition: The patient is taking p.o. well. 2. Cardiac: The patient has a mechanical aortic valve replacement and needs to be on anticoagulation. Due to his ongoing gross hematuria, I have held his anticoagulation today; however, we will need to start this as soon as safely possible. 3. Genitourinary: The patient has gross hematuria that has improved with chronic flushing. Likely exacerbated by his urinary tract infection. He is on IV antibiotics and we will monitor closely. The patient is on Flomax and finasteride as recommended by urology. 4. Hematology: The patient has acute blood loss anemia. We have ordered a blood transfusion. He does have an antibody for which he had to order out specific blood. 5. Gastrointestinal: The patient has gastroesophageal reflux disease. We will continue his proton pump inhibitor. The patient also has chronic constipation for which he is on Senna, Colace and MiraLax as needed. 6. Prophylaxis: The patient is eating and is anticoagulated with his Lovenox and Coumadin. 7. Code status: DO NOT RESUSCITATE.
[2017-03-20 22:22] VITALS: BP 101/61
[2017-03-21] VITALS (14 sets, daily range): BP systolic 86–110; BP diastolic 45–60
--- NOTE | 2017-03-21 07:45 | Progress Note ---
Subjective General 87yo male with UTI, chronic abbasi, hematuria(on anticoag for valve) and symptomatic anemia with weakness admitted for transfusion, antibiotics flushing of catheter and control of bleeding. Pt feeling OK though still weak. Denies pain nausea or palpitations. Has recieved 1 unit of blood so far. Physical Exam Vital Signs / I&Os Vital Signs Date Time Temp Pulse Resp B/P Pulse O2 O2 Flow FiO2 Ox Delivery Rate 03/21 0529 98.8 65 105/60 96 03/21 0350 98.6 65 16 97/55 95 Room Air 03/21 0251 97/56 03/21 0241 98.1 63 18 93/51 92 Room Air 03/21 0223 98.2 67 100/57 96 03/21 0213 98.2 68 16 96/45 98 Room Air 03/20 2222 65 18 101/61 98 Room Air 03/20 2033 Room Air 03/20 1816 97.5 69 18 86/47 97 Room Air 03/20 1545 97.3 18 98/48 99 Room Air 03/20 0957 97.5 70 18 103/47 100 Room Air I&O 03/20 0800 03/20 1600 03/21 0000 Intake Total 5840 Output Total 2300 3150 Balance -2300 2690 General Appearance Alert, Cooperative, No acute distress Lungs Clear to auscultation, Normal air movement Cardiovascular Regular rate and rhythm Abdomen Normal bowel sounds, Soft, No tenderness Extremities No edema Skin No Rashes LAB Results Laboratory Tests 03/20 03/21 03/21 1002 0605 0715 Chemistry Plasma Sodium (136 - 145 mmol/L) 142 144 Plasma Potassium (3.5 - 5.1 mmol/L) 4.5 4.3 Plasma Chloride (98 - 107 mmol/L) 108 111 CO2 (Enzymatic) (21 - 32 mmol/L) 27 29 BUN (7 - 18 mg/dL) 23 17 Creatinine (0.6 - 1.3 mg/dL) 1.1 1.0 Est GFR ( Amer) (mL/min) >60 >60 Est GFR (Non-Af Amer) (mL/min) >60 >60 Glucose (70 - 110 mg/dL) 129 93 Plasma Calcium (8.5 - 10.1 mg/dL) 8.3 7.4 Total Bilirubin (0.0 - 1.0 mg/dL) 0.4 AST (15 - 37 U/L) 21 ALT (12 - 78 U/L) 24 Alkaline Phosphatase (46 - 116 U/L) 51 Total Protein (6.4 - 8.2 g/dL) 5.4 Albumin (3.3 - 5.0 g/dL) 2.9 Coagulation INR (0.8 - 1.2) 2.2 2.0 Hematology WBC (4.5 - 11.5 K/uL) 3.2 3.8 RBC (4.50 - 5.90 M/uL) 2.35 2.20 Hgb (13.5 - 17.5 gm/dL) 7.4 6.9 6.8 Hct (41.0 - 53.0 %) 22.6 20.5 20.7 MCV (80 - 100 fL) 97 93 MCH (26 - 34 pg) 32 31 RDW (11.6 - 14.8 %) 16.0 16.4 Neut % (Auto) (50 - 75 %) 72.5 67.1 Lymph % (Auto) (25 - 40 %) 14.6 18.9 [place] % (Auto) (3 - 14 %) 8.6 7.8 Eos % (Auto) (0 - 4 %) 3.5 5.9 Baso % (Auto) (0 - 2 %) 0.8 0.3 Plt Count, EDTA (150 - 400 K/uL) 171 137 PUBS MCHC (31 - 37 g/dL) 33 34 Microbiology Date/Time Procedure - Status Source Growth 03/20 1007 Blood Culture - RECD BLOOD 03/20 1002 Blood Culture - RECD BLOOD Assessment and Plan Problem List 1. Hematuria Plan Continue flushing bladder. 2. Anticoagulation adequate Plan Remain off anticoagulant until bleed stabilized. 3. UTI (urinary tract infection) Plan On IV antibiotics.
[2017-03-22] VITALS (16 sets, daily range): BP systolic 96–132; BP diastolic 48–68
--- NOTE | 2017-03-22 08:05 | Progress Note ---
Subjective General 87yo male with hematuria and UTI on chronic anticoagulation for Valve replacement, severe weakness due to anemia. Transfused 2 units yesterday and treated with IV antibx and bladder irrgation. Feeling OK and wants to go home but still bleeding. Anticoagulation held since admit. Constitutional Weakness. Denies: Fever, Chills, Sweats. Respiratory Denies: Cough, SOB w/exertion, Wheezing. Cardiovascular Light-headedness. Denies: Chest Pain, Palpitations, Edema. Physical Exam Vital Signs / I&Os Vital Signs Date Time Temp Pulse Resp B/P Pulse O2 O2 Flow FiO2 Ox Delivery Rate 03/22 0718 97.5 62 18 96/50 97 Room Air 03/22 0213 98.1 62 14 116/66 97 Room Air 03/21 2315 Room Air 03/21 2311 98.2 68 16 110/51 96 Room Air 03/21 1924 98.1 57 18 101/55 98 03/21 1630 Room Air 03/21 1437 97.9 56 18 92/51 98 03/21 1042 97.9 60 18 108/53 98 03/21 0945 98.1 61 18 88/49 95 03/21 0845 97.5 72 18 86/49 94 03/21 0815 73 18 97/50 97 Room Air I&O 03/21 0800 03/21 1600 03/22 0000 Intake Total 4411 7289 7287 Output Total 6950 6800 6100 Balance -2539 489 1187 General Appearance Alert, Oriented X3, Cooperative, No acute distress Lungs Clear to auscultation Cardiovascular Regular rate and rhythm Abdomen Normal bowel sounds, Soft, No tenderness Extremities No edema Skin No Rashes LAB Results Laboratory Tests 03/21 03/22 1310 0535 Chemistry Plasma Sodium (136 - 145 mmol/L) 144 Plasma Potassium (3.5 - 5.1 mmol/L) 4.1 Plasma Chloride (98 - 107 mmol/L) 111 CO2 (Enzymatic) (21 - 32 mmol/L) 30 BUN (7 - 18 mg/dL) 14 Creatinine (0.6 - 1.3 mg/dL) 0.9 Est GFR ( Amer) (mL/min) >60 Est GFR (Non-Af Amer) (mL/min) >60 Glucose (70 - 110 mg/dL) 100 Plasma Calcium (8.5 - 10.1 mg/dL) 7.4 Plasma Magnesium (1.8 - 2.4 mg/dL) 1.8 Total Bilirubin (0.0 - 1.0 mg/dL) 0.3 AST (15 - 37 U/L) 20 ALT (12 - 78 U/L) 24 Alkaline Phosphatase (46 - 116 U/L) 50 Total Protein (6.4 - 8.2 g/dL) 4.3 Albumin (3.3 - 5.0 g/dL) 2.4 Hematology WBC (4.5 - 11.5 K/uL) 4.2 RBC (4.50 - 5.90 M/uL) 2.34 Hgb (13.5 - 17.5 gm/dL) 8.1 7.3 Hct (41.0 - 53.0 %) 24.2 21.9 MCV (80 - 100 fL) 94 MCH (26 - 34 pg) 31 RDW (11.6 - 14.8 %) 16.8 Neut % (Auto) (50 - 75 %) 72.3 Lymph % (Auto) (25 - 40 %) 14.5 [place] % (Auto) (3 - 14 %) 8.2 Eos % (Auto) (0 - 4 %) 4.4 Baso % (Auto) (0 - 2 %) 0.6 Plt Count, EDTA (150 - 400 K/uL) 136 PUBS MCHC (31 - 37 g/dL) 33 Assessment and Plan Problem List 1. UTI (urinary tract infection) Plan On IV antibiotics. 2. Hematuria Plan Persistent bleeding. Ongoing irrigation and antibiotics. Anticoagulation held. 3. Severe anemia Plan Transfuse x 2 more units
[2017-03-23 03:36] VITALS: BP 116/62
[2017-03-23 06:30] VITALS: BP 119/59
--- NOTE | 2017-03-23 09:03 | Progress Note ---
Subjective General Patient feels well today. No nausea/vomitting/diarrhea/constipation. However, only 2 very small bowel movements. Physical Exam Vital Signs / I&Os Vital Signs Date Time Temp Pulse Resp B/P Pulse O2 O2 Flow FiO2 Ox Delivery Rate 03/23 0630 36.6 66 17 119/59 100 Room Air 0.0 03/23 0336 36.6 64 14 116/62 97 Room Air 03/23 0052 0.0 03/22 2200 36.6 66 16 125/68 96 03/22 2130 66 16 119/51 97 Room Air 0.0 03/22 2054 36.3 65 16 111/54 99 03/22 2019 36.4 66 16 119/51 94 03/22 1940 73 16 118/59 94 03/22 1903 36.5 68 16 115/52 93 03/22 1846 36.2 69 16 106/62 92 03/22 1815 36.6 58 20 111/50 90 03/22 1748 36.4 53 18 116/48 95 03/22 1720 36.5 58 20 110/54 95 03/22 1648 36.6 62 20 116/56 100 03/22 1630 36.6 54 16 132/57 82 03/22 1609 36.6 62 16 114/50 94 03/22 1530 Room Air 0.0 03/22 1417 36.3 64 20 111/49 95 Room Air 0.0 I&O 03/23 0000 03/22 1600 03/22 0800 Intake Total 9400 3600 7324 Output Total 47275 7800 05873 [facility] -[phone] -[phone] -5213 General Appearance Alert, No acute distress Lungs Clear to auscultation, Normal air movement Cardiovascular Regular rate and rhythm, Normal S1 and S2, 2/6 systolic murmur increased at base with snap. Abdomen Normal bowel sounds, Soft, No tenderness Extremities No edema Assessment and Plan Problem List 1. UTI (urinary tract infection) Plan On rocephin. Will change to keflex. 2. Hemorrhage of urinary bladder wall Plan Will monitor H/H over next 24 hrs. If continues to decrease, will transfer to [place] for likely prostate surgery. I spoke with Dr. Beasley regarding this yesterday. 3. BPH (benign prostatic hypertrophy) with urinary retention Plan On flomax and finasteride. 4. Constipation Plan On Senna & colace, however, minimal BM since admit. Will do miralax today. Iron is likely contributing to this problem. 5. Dementia Plan On debbie & Erich.
--- NOTE | 2017-03-23 09:03 | Progress Note ---
Subjective General Patient feels well today. No nausea/vomitting/diarrhea/constipation. However, only 2 very small bowel movements. Physical Exam Vital Signs / I&Os Vital Signs Date Time Temp Pulse Resp B/P Pulse O2 O2 Flow FiO2 Ox Delivery Rate 03/23 0630 36.6 66 17 119/59 100 Room Air 0.0 03/23 0336 36.6 64 14 116/62 97 Room Air 03/23 0052 0.0 03/22 2200 36.6 66 16 125/68 96 03/22 2130 66 16 119/51 97 Room Air 0.0 03/22 2054 36.3 65 16 111/54 99 03/22 2019 36.4 66 16 119/51 94 03/22 1940 73 16 118/59 94 03/22 1903 36.5 68 16 115/52 93 03/22 1846 36.2 69 16 106/62 92 03/22 1815 36.6 58 20 111/50 90 03/22 1748 36.4 53 18 116/48 95 03/22 1720 36.5 58 20 110/54 95 03/22 1648 36.6 62 20 116/56 100 03/22 1630 36.6 54 16 132/57 82 03/22 1609 36.6 62 16 114/50 94 03/22 1530 Room Air 0.0 03/22 1417 36.3 64 20 111/49 95 Room Air 0.0 I&O 03/23 0000 03/22 1600 03/22 0800 Intake Total 9400 3600 7324 Output Total 54768 7800 [id number] [facility] -[phone] General Appearance Alert, No acute distress Lungs Clear to auscultation, Normal air movement Cardiovascular Regular rate and rhythm, Normal S1 and S2, 2/6 systolic murmur increased at base with snap. Abdomen Normal bowel sounds, Soft, No tenderness Extremities No edema Assessment and Plan Problem List 1. UTI (urinary tract infection) Plan On rocephin. Will change to keflex. 2. Hemorrhage of urinary bladder wall Plan Will monitor H/H over next 24 hrs. If continues to decrease, will transfer to [place] for likely prostate surgery. I spoke with Dr. Beasley regarding this yesterday. 3. BPH (benign prostatic hypertrophy) with urinary retention Plan On flomax and finasteride. 4. Constipation Plan On Senna & colace, however, minimal BM since admit. Will do miralax today. Iron is likely contributing to this problem. 5. Dementia Plan On debbie & Erich.
[2017-03-23 10:20] VITALS: BP 104/54
[2017-03-23 14:25] VITALS: BP 112/65
[2017-03-23 18:05] VITALS: BP 151/75
[2017-03-23 23:05] VITALS: BP 135/63
[2017-03-24] VITALS (9 sets, daily range): BP systolic 81–116; BP diastolic 44–67
--- NOTE | 2017-03-24 08:23 | Progress Note ---
Subjective General No nausea vomitting, diarrhea, constipation. No abd pain. No chest pain, SOB. Physical Exam Vital Signs / I&Os Vital Signs Date Time Temp Pulse Resp B/P Pulse O2 O2 Flow FiO2 Ox Delivery Rate 03/24 0637 36.6 65 19 114/63 97 Room Air 03/24 0207 36.7 64 14 116/62 98 Room Air 03/24 0112 Room Air 03/23 2305 36.6 61 15 135/63 99 Room Air 03/23 1805 36.5 71 18 151/75 96 Room Air 03/23 1600 Room Air 0.0 03/23 1425 36.6 64 18 112/65 100 Room Air 03/23 1020 36.6 63 20 104/54 100 I&O 03/24 0000 03/23 1600 03/23 0800 Intake Total 63036 73111 16732 Output Total 4399969 47511 71196 [facility]5627 -[phone] General Appearance Alert, Cooperative, No acute distress Lungs Clear to auscultation, Normal air movement Cardiovascular Regular rate and rhythm, Normal S1 and S2, 2/6 systolic murmur increased at the base with snap. Abdomen Normal bowel sounds, Soft, No tenderness Extremities No edema Assessment and Plan Problem List 1. UTI (urinary tract infection) Plan On keflex until March 30. 2. Hemorrhage of urinary bladder wall Plan due to trauma from patient removal abbasi over the weekend withOUT deflatin the balloon. Now resolved. If bleeding restarts, would transfer to Dr. Beasley ( [facility]- urology) at [place] for surgical intervention. I have already spoken with Dr. Beasley and he is on-call over the weekend. 3. BPH (benign prostatic hypertrophy) with urinary retention Plan Chronic in-dwelling catheter for now which is new for patient. flomax increased and finasteride started by urology recently in hopes that abbasi may be removed in several weeks. 4. Anticoagulation goal of INR 2.5 to 3.5 Plan Plan to restart lovenox and coumadin tomorrow as long as no further hematuria and H/H remains stable. 5. Mechanical heart valve present Plan See above.
--- NOTE | 2017-03-24 08:23 | Progress Note ---
Subjective General No nausea vomitting, diarrhea, constipation. No abd pain. No chest pain, SOB. Physical Exam Vital Signs / I&Os Vital Signs Date Time Temp Pulse Resp B/P Pulse O2 O2 Flow FiO2 Ox Delivery Rate 03/24 0637 36.6 65 19 114/63 97 Room Air 03/24 0207 36.7 64 14 116/62 98 Room Air 03/24 0112 Room Air 03/23 2305 36.6 61 15 135/63 99 Room Air 03/23 1805 36.5 71 18 151/75 96 Room Air 03/23 1600 Room Air 0.0 03/23 1425 36.6 64 18 112/65 100 Room Air 03/23 1020 36.6 63 20 104/54 100 I&O 03/24 0000 03/23 1600 03/23 0800 Intake Total 61627 54953 69198 Output Total 8030681 74660 00355 [facility]9159 -[phone] General Appearance Alert, Cooperative, No acute distress Lungs Clear to auscultation, Normal air movement Cardiovascular Regular rate and rhythm, Normal S1 and S2, 2/6 systolic murmur increased at the base with snap. Abdomen Normal bowel sounds, Soft, No tenderness Extremities No edema Assessment and Plan Problem List 1. UTI (urinary tract infection) Plan On keflex until March 30. 2. Hemorrhage of urinary bladder wall Plan due to trauma from patient removal abbasi over the weekend withOUT deflatin the balloon. Now resolved. If bleeding restarts, would transfer to Dr. Beasley ( [facility]- urology) at [place] for surgical intervention. I have already spoken with Dr. Beasley and he is on-call over the weekend. 3. BPH (benign prostatic hypertrophy) with urinary retention Plan Chronic in-dwelling catheter for now which is new for patient. flomax increased and finasteride started by urology recently in hopes that abbasi may be removed in several weeks. 4. Anticoagulation goal of INR 2.5 to 3.5 Plan Plan to restart lovenox and coumadin tomorrow as long as no further hematuria and H/H remains stable. 5. Mechanical heart valve present Plan See above.
[2017-03-25 03:07] VITALS: BP 112/54
[2017-03-25 06:43] VITALS: BP 99/58
--- NOTE | 2017-03-25 10:17 | Provider's Discharge Care Plan ---
Problem, Goal, Plan Problem List 1. Severe anemia Instructions: Take meds as directed, monitor hct 2. Dementia Instructions: work with PT/OT/RN 3. Hematuria Instructions: Follow up as directed 4. Anticoagulation goal of INR 2.5 to 3.5 Instructions: Follow up as needed (restart on coum/lovenox;INRs), Follow up as directed
--- NOTE | 2017-03-25 10:18 | Discharge Summary ---
Discharge Summary Report Admit Date 03/20/17 Discharge Date 03/25/17 Admission Diagnosis Aortic valve replacement, Coumadin, hematuria, severe anemia Discharge Diagnosis Aortic valve replacement, Coumadin, hematuria, severe anemia Brief History Patient is a 87 y.o. male who presented to the hospital with bleeding with large clots in catheter. Hospital Course He was transfused for severe anemia. He was doing a little better but with dementia pulled out his abbasi catheter with bulb intact and then lots more bleeding. Nearly transfered to [place] with urology but bleeding slowed and with irrigation he is now doing better. Hct stable. Has weakness and dementia with abbasi and also AVR on coumadin and family would like him to have eval for SNF. General Appearance Alert, Cooperative HEENT Atraumatic Lungs Clear to auscultation, Normal air movement Cardiovascular Regular Rate, has click of AVR Abdomen Soft, No tenderness Skin No Rashes Neurological dementia stable Lab/Imaging Laboratory Tests 03/24 1300 Hematology Hgb (13.5 - 17.5 gm/dL) 9.4 Hct (41.0 - 53.0 %) 28.8 Discharge Instructions/Meds Resume lovenox, coumadin, PT/INR daily until therapeutic; follow up with urology , work with PT/OT on strengthening and monitor on abbasi with RN. D/C meds: 1. Levothyroxine 50 mcg. 2. Aspirin 81 mg p.o. t.i.d. 3. Finasteride 5 mg p.o. daily. 4. Warfarin 13 mg on Monday, Monday, Monday and 14 mg on Monday, , Monday, Monday. 5. Lovenox 80 mg subcutaneously b.i.d. 6. Polyethylene glycol 17 g p.o. daily p.r.n. diarrhea. 7. Pantoprazole 40 mg p.o. b.i.d. 8. Senna 8.6 mg p.o. b.i.d. 9. Colace 100 mg p.o. b.i.d. 10. Flomax 0.4 mg p.o. b.i.d. 11. Iron 325 mg p.o. b.i.d. 12. Vitamin D 1000 international units p.o. daily. 13. Fish oil 1200 mg p.o. daily. 14. Multivitamin 1 tablet p.o. daily. 15. Melatonin 10 mg p.o. at bedtime p.r.n. insomnia. 16. Namenda 10 mg p.o. b.i.d. 17. Aricept 5 mg p.o. daily.
--- NOTE | 2017-03-25 10:20 | Provider's Discharge Care Plan ---
Problem, Goal, Plan Problem List 1. Anticoagulation goal of INR 2.5 to 3.5 Instructions: check INR Monday and then daily- call oncology pharmacist DR or Clinic if open with INR 2.5 or greater, If significantly increased bleeding from catheter I would rec eval at [place] where his urologist is
--- NOTE | 2017-03-25 10:20 | Provider's Discharge Care Plan ---
Problem, Goal, Plan Problem List 1. Anticoagulation goal of INR 2.5 to 3.5 Instructions: check INR Monday and then daily- call compensation administrator DR or Clinic if open with INR 2.5 or greater, If significantly increased bleeding from catheter I would rec eval at [place] where his urologist is
[2017-03-25 10:54] VITALS: BP 94/53
[2017-03-25 14:21] VITALS: BP 104/60
== END 2017-03-25 15:50 | DRG 699 ==
LOC: ACUTE2 SRH 09:29
PROVIDERS: ADMIT Family Medicine
PROC: 30233N1 Transfusion of Nonautologous Red Blood Cells into Peripheral Vein, Percutaneous Approach (ICD-10-PCS; principal; 2017-03-21)
PROC: 30233N1 Transfusion of Nonautologous Red Blood Cells into Peripheral Vein, Percutaneous Approach (ICD-10-PCS; 2017-03-22)
DX: S37.30XA Unspecified injury of urethra, initial encounter (principal); N39.0 Urinary tract infection, site not specified; D62 Acute posthemorrhagic anemia; R31.0 Gross hematuria; X58.XXXA Exposure to other specified factors, initial encounter; N40.1 Benign prostatic hyperplasia with lower urinary tract symptoms; Y99.8 Other external cause status; R33.8 Other retention of urine; F03.90 Unspecified dementia, unspecified severity, without behavioral disturbance, psychotic disturbance, mood disturbance, and anxiety; Z95.2 Presence of prosthetic heart valve; Z79.01 Long term (current) use of anticoagulants
CPT/HCPCS: 80172; 83475; 85241; 90001; 90047; 90065; 90074; 90100; 90155; 91004; 91162; 91163; 92720; 94060; 95059